=== PATIENT | female | born 1990 | race Caucasian/White ===

== ENCOUNTER → 2020-02-20 17:43 | Outpatient (CLI) | payer BC, SELFPAY | LOC: OBOUT 17:54 → UTC.OUT 18:56 | PROVIDERS: PCP Family Medicine; Visit Provider Physician Assistant | DX: Z02.4 Encounter for examination for driving license (principal) ==

== ENCOUNTER → 2020-04-14 06:46 | Outpatient (CLI) | payer BC, SELFPAY ==
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
== END ==
PROVIDERS: PCP Family Medicine; Visit Provider Nurse Practitioner
DX: R10.32 Left lower quadrant pain (principal)
CPT/HCPCS: 72192

== ENCOUNTER → 2020-11-04 15:36 | Outpatient (CLI) | payer BC, SELFPAY ==
[2020-11-04 16:23] LABS: Hemoglobin A1C 5.3 % (4.0-6.0)
[2020-11-04 17:12] LABS: Chloride 102 mmol/L (98-107)
[2020-11-04 17:13] LABS: Potassium 4.1 mmoL/L (3.5-5.1); Sodium 141 mmol/L (136-145)
[2020-11-04 17:15] LABS: Alanine Aminotransferase 21 U/L (12-78); Alkaline Phosphatase 65 U/L (38-126); Aspartate Amino Transferase 26 U/L (14-36); Bilirubin,Total 0.5 mg/dl (0.2-1.3); Blood Urea Nitrogen 16 mg/dl (7-17); Estimated Glomerular Filt Rate 100 ml/min (>60); GFR (African American) 121 ML/MIN (>60)
[2020-11-04 17:16] LABS: Anion Gap 13.1 mEq/L (5-15); Calcium 9.7 mg/dl (8.4-10.2); Carbon Dioxide 30 mmol/L (22.0-30.0); Globulin 2.5 g/dL (1.3-3.2); Glucose 79 mg/dl (74-100); Iron 77 ug/dL (37-170); Total Protein,Serum 7.5 g/dl (6.3-8.2)
[2020-11-04 17:25] LABS: Total Iron Binding Capacity 338 ug/dL (265-497)
[2020-11-04 17:34] LABS: Free Thyroxine Index 2.8 ug/dL (5.93-13.13); T4 (Thyroxine) 7.8 ug/dl (5.53-11.0); Triiodothryronine (T3) Uptake 36 % (23.5-40.5)
[2020-11-04 17:48] LABS: Thyroid Stimulating Hormone 0.68 uIU/mL (0.465-4.68)
[2020-11-04 18:05] LABS: Vitamin B12 379 pg/mL (239-931)
[2020-11-06 12:23] LABS: FSH 4.8 mIU/mL (.); Progesterone <0.1 ng/mL (.)
[2020-11-12 08:54] LABS: Testosterone, Total, LC/MS 39.8 ng/dL (10.0-55.0)
[2020-11-13 08:57] LABS: Estrogen 185 pg/mL (.)
[2020-11-16 04:21] LABS: 1,25 Dihydroxy Vitamin D 57 pg/mL (.); 1,25-Dihydroxy, Vitamin D-2 <10 pg/mL (.); 1,25-Dihydroxy, Vitamin D-3 57 pg/mL (.)
== END ==
PROVIDERS: Visit Provider Nurse Practitioner Psychiatric/Mental Health
DX: Z00.00 Encounter for general adult medical examination without abnormal findings (principal); R53.83 Other fatigue; Z79.899 Other long term (current) drug therapy; Z68.33 Body mass index [BMI] 33.0-33.9, adult
CPT/HCPCS: 36415; 80053; 82607; 82652; 82672; 83001; 83036; 83540; 83550; 84144; 84403; 84436; 84443; 84479

== ENCOUNTER → 2021-03-09 15:33 | Outpatient (CLI) | payer SELFPAY | PROVIDERS: PCP Family Medicine; Visit Provider Nurse Practitioner Family | DX: Z02.4 Encounter for examination for driving license (principal) ==

== ENCOUNTER → 2021-10-06 16:32 | Outpatient (CLI) | payer BC, SELFPAY ==
[2021-10-06 17:17] LABS: Basophils # 0.1 K/mm3 (0-0.2); Basophils % 0.8 % (0.1-2.0); Eosinophils # 0.2 K/mm3 (0.0-0.4); Eosinophils % 2.7 % (0.1-12.0); Hematocrit 41.9 % (37.0-47.0); Hemoglobin 13.6 g/dL (12.2-16.2); Lymphocytes # 1.5 K/mm3 (0.7-4.5); Lymphocytes % 21.3 % (10-50); Mean Corpuscular HGB Conc 32.5 g/dL (31.8-35.4); Mean Corpuscular Volume 95.2 fl (81-99); Mean Platelet Volume 8.4 fl (7.4-10.4); Monocytes # 0.5 K/mm3 (0.1-1.0); Monocytes % 6.6 % (1.7-9.3); Neutrophils # 4.7 K/mm3 (1.8-7.8); Neutrophils % 68.5 % (37.0-80.0); Platelet Count 205 K/mm3 (142-424); Red Cell Distribution Width 12.7 % (11.5-17.5); White Blood Count 6.9 K/mm3 (4.8-10.8)
== END ==
PROVIDERS: PCP Physician Assistant; Visit Provider Physician Assistant
DX: J06.9 Acute upper respiratory infection, unspecified (principal)
CPT/HCPCS: 36415; 85025

== ENCOUNTER → 2022-12-21 13:46 | Outpatient (CLI) | payer OTHER, SELFPAY ==
[2022-12-21 14:38] LABS: Basophils % 0.7 % (0.1-2.0); Eosinophils # 0.2 K/mm3 (0.0-0.4); Hematocrit 44.3 % (37.0-47.0); Hemoglobin 14.1 g/dL (12.2-16.2); Lymphocytes # 1.5 K/mm3 (0.7-4.5); Lymphocytes % 37.8 % (10-50); Mean Corpuscular HGB Conc 31.7 g/dL (31.8-35.4); Mean Corpuscular Hemoglobin 29.6 pg (27.0-31.2); Mean Corpuscular Volume 93.4 fl (81-99); Mean Platelet Volume 8.4 fl (7.4-10.4); Monocytes # 0.4 K/mm3 (0.1-1.0); Monocytes % 9.1 % (1.7-9.3); Neutrophils # 1.9 K/mm3 (1.8-7.8); Neutrophils % 48.5 % (37.0-80.0); Platelet Count 199 K/mm3 (142-424); Red Blood Count 4.75 M/mm3 (4.20-5.40); Red Cell Distribution Width 12.7 % (11.5-17.5); White Blood Count 3.9 K/mm3 (4.8-10.8)
[2022-12-21 14:51] LABS: Alanine Aminotransferase 52 U/L (12-78); Albumin Level 4.5 g/dl (3.5-5.0); Albumin/Globulin Ratio 1.7 (1.1-1.8); Alkaline Phosphatase 58 U/L (38-126); Anion Gap 15.2 mEq/L (5-15); Aspartate Amino Transferase 45 U/L (14-36); Bilirubin,Total 0.6 mg/dl (0.2-1.3); Blood Urea Nitrogen 14 mg/dl (7-17); Calcium 9.1 mg/dl (8.4-10.2); Carbon Dioxide 29 mmol/L (22.0-30.0); Chloride 100 mmol/L (98-107); Estimated Glomerular Filt Rate 98 ml/min (>60); GFR (African American) 119 ML/MIN (>60); Globulin 2.6 g/dL (1.3-3.2); Glucose 89 mg/dl (74-100); Potassium 4.2 mmoL/L (3.5-5.1); Sodium 140 mmol/L (136-145); Total Protein,Serum 7.1 g/dl (6.3-8.2)
[2022-12-21 15:08] LABS: Triiodothryronine (T3) Uptake 34 % (23.5-40.5)
[2022-12-21 15:42] LABS: Vitamin B12 438 pg/mL (239-931)
[2022-12-21 16:01] LABS: Hemoglobin A1C 5.1 % (4.0-6.0)
[2022-12-21 16:02] LABS: Iron 138 ug/dL (37-170)
[2022-12-21 16:12] LABS: Total Iron Binding Capacity 316 ug/dL (265-497)
[2022-12-21 16:20] LABS: Free Thyroxine Index 2.7 ug/dL (5.93-13.13)
[2022-12-30 20:09] LABS: 1,25 Dihydroxy Vitamin D 46 pg/mL (.); 1,25-Dihydroxy, Vitamin D-2 <10 pg/mL (.); 1,25-Dihydroxy, Vitamin D-3 41 pg/mL (.)
== END ==
PROVIDERS: PCP Family Medicine; Visit Provider Nurse Practitioner Psychiatric/Mental Health
DX: Z00.00 Encounter for general adult medical examination without abnormal findings (principal); Z79.899 Other long term (current) drug therapy; R53.83 Other fatigue
CPT/HCPCS: 36415; 80053; 82607; 82652; 83036; 83540; 83550; 84436; 84443; 84479; 85025

== ENCOUNTER 2023-09-25 07:35 | Emergency (ER) | payer OTHER, SELFPAY ==
[2023-09-25] VITALS (8 sets, daily range): BP systolic 103–143; BP diastolic 53–89; PULSE 65–94; RESP 18; TEMP 36.6–36.7; O2SAT 97–100; BMI 28.7
[2023-09-25 08:01] LABS: Microscopic, Urine URINE MICROSCOPIC (MICROSCOPIC)
--- NOTE | 2023-09-25 08:01 | PC.NURSE ---
Dr. murry at [facility] for pt eval
[2023-09-25] MEDS: ONDANSETRON 4MG/2ML VIAL 4 MG IV (08:02)
[2023-09-25] MEDS: LACTATED RINGERS 1000ML 1,000 ML 999 ML IV (08:03)
[2023-09-25] MEDS: KETOROLAC 30MG/ML VIAL 30 MG IV (08:03)
[2023-09-25 08:05] LABS: Appearance,Urine CLEAR (Clear); Bilirubin,Urine Negative (Negative); Blood, Urine Negative (Negative); Color,Urine YELLOW (Yellow); Glucose,Urine (UA) Negative (Negative); Ketones,Urine Negative (Negative); Leukocyte Esterase,Urine Negative (Negative); Nitrate,Urine Negative (Negative); Protein,Urine Negative (Negative); Specific Gravity, Urine 1.025 (1.005-1.030); Urobilinogen,Urine 0.2 EU/dl (0.2)
[2023-09-25 08:05] LABS: Basophils % 0.8 % (0.1-2.0); Eosinophils # 0.2 K/mm3 (0.0-0.4); Eosinophils % 2.9 % (0.1-12.0); Hematocrit 44.4 % (37.0-47.0); Hemoglobin 14.4 g/dL (12.2-16.2); Lymphocytes # 1.5 K/mm3 (0.7-4.5); Lymphocytes % 26.6 % (10-50); Mean Corpuscular HGB Conc 32.5 g/dL (31.8-35.4); Mean Corpuscular Hemoglobin 30.8 pg (27.0-31.2); Mean Corpuscular Volume 94.8 fl (81-99); Mean Platelet Volume 8.8 fl (7.4-10.4); Monocytes # 0.6 K/mm3 (0.1-1.0); Neutrophils # 3.3 K/mm3 (1.8-7.8); Neutrophils % 59.8 % (37.0-80.0); Platelet Count 179 K/mm3 (142-424); Red Blood Count 4.68 M/mm3 (4.20-5.40); Red Cell Distribution Width 12.9 % (11.5-17.5); White Blood Count 5.6 K/mm3 (4.8-10.8)
--- NOTE | 2023-09-25 08:08 | CT_ITS ---
FINAL REPORT CLINICAL HISTORY: Lower abd pain COMPARISON: None FINDINGS: CT OF THE ABDOMEN AND PELVIS WITH CONTRAST Axial CT images of the abdomen and pelvis were obtained after the administration of IV contrast. Coronal and sagittal reformatted images were also obtained and reviewed. This study was performed with techniques to keep radiation doses as low as reasonably achievable (ALARA). Individualized dose reduction techniques using automated exposure control or adjustment of mA and/or kV according to the patient's size were employed. Abdomen: The lung bases are clear. The heart is normal in size. The liver has an unremarkable appearance, without evidence of mass or biliary ductal dilatation. There is mild nonspecific gallbladder wall thickening. The spleen is unremarkable. No adrenal mass is present. The pancreas has an unremarkable appearance. The kidneys are normal, without evidence of mass or hydronephrosis. The aorta is normal in caliber. There is no free fluid or adenopathy. No mass or abnormal fluid collection is seen. Pelvis: The appendix is normal in appearance. The urinary bladder is unremarkable. There is a right ovarian corpus luteum cyst, with a small amount of pelvic free fluid which may be physiologic or reactive. There is no evidence of mass or adenopathy. There is no evidence of bowel obstruction. IMPRESSION: Right ovarian corpus luteum cyst, with a small amount of free fluid, physiologic or reactive. Mild nonspecific gallbladder wall thickening. Reviewed, Interpreted and Dictated by Hussain Lopez III, MD Transcribed by Rebecca Staples Authenticated and [facility]
[2023-09-25 08:15] LABS: Urine Pregnancy, HCG Qual. Negative (Negative)
[2023-09-25 08:22] LABS: Alanine Aminotransferase 25 U/L (12-78); Albumin Level 4.5 g/dl (3.5-5.0); Albumin/Globulin Ratio 1.6 (1.1-1.8); Alkaline Phosphatase 57 U/L (38-126); Anion Gap 8.2 mEq/L (5-15); Aspartate Amino Transferase 28 U/L (14-36); Bilirubin,Total 0.4 mg/dl (0.2-1.3); Blood Urea Nitrogen 14 mg/dl (7-17); Calcium 9.4 mg/dl (8.4-10.2); Carbon Dioxide 29 mmol/L (22.0-30.0); Chloride 107 mmol/L (98-107); Creatinine Clearance Estimated 135 mL/min (50-200); Estimated Glomerular Filt Rate 98 ml/min (>60); GFR (African American) 118 ML/MIN (>60); Globulin 2.8 g/dL (1.3-3.2); Glucose 78 mg/dl (74-100); Potassium 4.2 mmoL/L (3.5-5.1); Sodium 140 mmol/L (136-145); Total Protein,Serum 7.3 g/dl (6.3-8.2)
[2023-09-25 08:37] LABS: Lipase 224 U/L (23-300)
--- NOTE | 2023-09-25 08:37 | ED_ITS ---
Discharge Plan Disposition Patient Disposition: Home, Self-Care Condition: Good Prescriptions Prescriptions: No Action dextroamphetamine-amphetamine [Adderall XR] 30 mg capsule,extended release 24h r 30 mg PO DAILY Qty: 30 0RF Referrals Follow up/Referrals: Dionne Sandoval DO [Staff Physician] - See instructions (MAKE AN APPOINTMENT FOR OB FOLLOW-UP) Twyla Hensley MD [Primary Care Provider] - See instructions Activity Restrictions/Add. Instructions Additional Instructions/Restrictions: You have been evaluated in the ED for your complaints. You may follow-up with your PCP in the next 3 to 5 days. Please return to ED for any new or worsening symptoms. Please follow-up with [employer] SALES REPRESENTATIVE as discussed. Clinical Impressions Clinical Impression: Bilateral lower abdominal pain, Ruptured ovarian cyst Stand Alone Forms Stand Alone Forms: Work/School Release Discharge ED Provider: Porfirio Guerra Adult HPI General Chief complaint: PAIN Stated complaint: abd pain, rt side pain, lower back pain Time Seen by Provider: 09/25/23 07:57 Mode of Arrival: Wheelchair Source of Information: Patient Limitations: No Limitations Description of Symptoms (Recalled from ER Triage Doc. by RN): Patient states after having sex this morning she feels that she may have a kidney stone that has moved. Complaint of right sided lower back pain that started this morning. History of Present Illness HPI narrative: 33-year-old female with past medical history significant for ADHD, PRATIBHA, nephrolithiasis, , tubal ligation, presents today for evaluation concerning lower abdominal pain characterized as a cramping sensation onset this morning after having sexual intercourse with her . States that she got up and went to the restroom and noted that her cramping was intense. She denies having any fevers, chills, chest pain, shortness of breath, dysuria, hematuria or discharge. She does note right lower back pain that is nonradiating. No further complaints at this time. Related Data Previous Rx's Medication Instructions Recorded dextroamphetamine-amphetamine ER 30 mg PO DAILY #30 caps 08/21/23 30 mg 24hr capsule,extend release (Adderall XR) Allergies Allergy/AdvReac Type Severity Reaction Status Date / Time No Known Allergies Allergy Verified 10/20/22 09:11 [facility] Disclaimer: The information contained in this section may have been updated after the patient was seen, as this information can be updated by other users. 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 ROS Obtained: Yes All systems reviewed & no additional complaints except as documented Physical Exam General General appearance: alert and in no apparent distress Head Head exam: atraumatic and normocephalic Eye Eye exam: Present normal appearance, PERRL and EOMI ENT ENT exam: Present normal oropharynx and mucous membranes moist Neck Neck exam: Present full ROM; Absent meningismus Respiratory Respiratory exam: Absent respiratory distress, wheezes, stridor or accessory muscle use Cardiovascular Cardiovascular exam: Present normal rhythm Abdominal Exam Abdominal exam: Present soft and tenderness; Absent distention, guarding, rebou nd or rigidity Abdominal tenderness: Present RLQ, LLQ and suprapubic Neurological Exam Neurological exam: Present alert, oriented X3 and CN II-XII intact; Absent motor sensory deficit Psychiatric Psychiatric exam: Present normal affect and normal mood Skin Skin exam: Present warm and dry Medical Decision Making Medical Records Medical records reviewed: Yes I reviewed the patient's medical records. Devyn Inquiry Pt receiving controlled substance: No Devyn was queried for this patient: No Vital Signs: 09/25/23 07:36 09/25/23 08:00 09/25/23 08:30 Temperature 97.9 F Temperature Source Oral Pulse Rate 83 65 Pulse Rate [Radial] 94 H Respiratory Rate 18 Blood Pressure 124/87 117/72 Blood Pressure [Right Arm] 143/89 H Blood Pressure Mean 91 Blood Pressure Mean [Right Arm] 107 Blood Pressure Source [Right Arm] Automatic Cuff Blood Pressure Position [Right Arm] Sitting 02 Sat by Pulse Oximetry 100 98 97 Oxygen Delivery Method Room Air Room Air 09/25/23 09:30 09/25/23 10:01 09/25/23 10:31 Temperature Temperature Source Pulse Rate 76 73 66 Pulse Rate [Radial] Respiratory Rate Blood Pressure 113/69 109/70 L 114/77 Blood Pressure [Right Arm] Blood Pressure Mean Blood Pressure Mean [Right Arm] Blood Pressure Source [Right Arm] Blood Pressure Position [Right Arm] 02 Sat by Pulse Oximetry 99 100 100 Oxygen Delivery Method Room Air Room Air Room Air 09/25/23 11:31 Temperature Temperature Source Pulse Rate 76 Pulse Rate [Radial] Respiratory Rate Blood Pressure 123/75 Blood Pressure [Right Arm] Blood Pressure Mean Blood Pressure Mean [Right Arm] Blood Pressure Source [Right Arm] Blood Pressure Position [Right Arm] 02 Sat by Pulse Oximetry 99 Oxygen Delivery Method Room Air Lab Data Lab Results 09/25/23 07:40: Urine Color Yellow, Urine Appearance Clear, Urine pH 7.0, Ur Specific Hopkins 1.025, Urine Protein Negative, Urine Glucose (UA) Negative, Urine Ketones Negative, Urine Blood Negative, Urine Nitrate Negative, Urine Bilirubin Negative, Urine Urobilinogen 0.2, Ur Leukocyte Esterase Negative, Urine RBC Occasional, Urine WBC Occasional, Ur Squamous Epith Cells 3-5, Urine Bacteria Trace, Urine HCG, Qual Negative 09/25/23 07:45: WBC 5.6, RBC 4.68, Hgb 14.4, Hct 44.4, MCV 94.8, MCH 30.8, MCHC 32.5, RDW 12.9, Plt Count 179, MPV 8.8, Neut % (Auto) 59.8, Lymph % (Auto) 26.6, [place] % (Auto) 10.0 H, Eos % (Auto) 2.9, Baso % (Auto) 0.8, Neut # (Auto) 3.3, Lymph # (Auto) 1.5, [place] # (Auto) 0.6, Eos # (Auto) 0.2, Baso # (Auto) 0.0, Sodium 140, Potassium 4.2, Chloride 107, Carbon Dioxide 29, Anion Gap 8.2, BUN 14, Creatinine 0.70, Estimated Creat Clear 135, Estimated GFR 98, Est GFR ( Amer) 118, Glucose 78, Calcium 9.4, Total Bilirubin 0.4, AST 28, ALT 25, Alkaline Phosphatase 57, Total Protein 7.3, Albumin 4.5, Globulin 2.8, Albumin/Globulin Ratio 1.6, Lipase 224, Serum HCG, Qual Negative 09/25/23 : Lactate 1.2 09/25/23 07:45 09/25/23 07:45 Orders (Tests/Meds): ED MEDICATIONS Generic Name Dose Route Start Last Admin Trade Name Freq PRN Reason Stop Dose Admin Sodium Chloride 10 ml 09/25/23 07:56 Sodium Chloride 0.9% 10ml Flush Syringe IV 10/25/23 07:55 NEEDED PRN Maintain IV Site Discontinued Medications Generic Name Dose Route Start Last Admin Trade Name Freq PRN Reason Stop Dose Admin Lactated Ringer's 1,000 mls @ 999 mls/hr 09/25/23 07:58 09/25/23 08:03 Lactated Ringer's 1000 Ml Bag IV 09/25/23 08:58 999 mls/hr .Q1H1M ONE Administration Iopamidol 75 ml 09/25/23 08:47 09/25/23 08:48 Iopamidol-370 (76%);100ml Bottle IV 09/25/23 08:48 75 ml ONCE ONE Administration Ketorolac Tromethamine 30 mg 09/25/23 07:58 09/25/23 08:03 Ketorolac 30mg/Ml Vial IV 09/25/23 07:59 30 mg ONCE ONE Administration Ondansetron HCl 4 mg 09/25/23 07:58 09/25/23 08:02 Ondansetron 4mg/2ml Vial IV 09/25/23 07:59 4 mg ONCE ONE Administration Sodium Chloride 10 ml 09/25/23 08:47 09/25/23 08:48 Sodium Chloride 0.9% 10ml Syr (Rad Only) IV 09/25/23 08:48 10 ml ONCE ONE Administration ORDERS Category Date Time Status CT abdomen pelvis w con Stat Cat Scan 09/25/23 08:08 Taken US transvaginal Stat Exams 09/25/23 10:30 Completed Complete Blood Count Auto Diff Stat Lab 09/25/23 07:45 Completed Comprehensive Metabolic Panel Stat Lab 09/25/23 07:45 Completed HCG Qualitative, Serum Stat Lab 09/25/23 07:45 Completed Lactic Acid Stat Lab 09/25/23 Completed Lipase Stat Lab 09/25/23 07:45 Completed Urinalysis and Microscopic Stat Lab 09/25/23 07:40 Completed Urine , HCG Qual. Stat Lab 09/25/23 07:40 Completed Medical Decision Narrative: 33-year-old female with past medical history significant for ADHD, PRATIBHA, nephrolithiasis, , tubal ligation, presents today for evaluation concerning lower abdominal pain characterized as a cramping sensation onset this morning after having sexual intercourse with her . States that she got up and went to the restroom and noted that her cramping was intense. On assessment, the patient was hemodynamically stable and in no acute distress. Afebrile. Physical exam was remarkable for tenderness to palpation in the left lower quadrant, right lower quadrant and suprapubic region. She did not have any CVA tenderness bilaterally. She did have right lower lumbar tenderness along the paraspinal musculature. Other physical exam findings unremarkable. Differential diagnoses include not limited to ruptured ovarian cyst, , other intra-abdominal pathology, among others. CBC was nonactionable. CMP nonactionable. Lactate 1.2, within range. No transaminitis. Negative screen. No signs of UTI on urinalysis. CT of the abdomen and pelvis was also ordered And preliminary read noted a right ovarian corpus luteum cyst with small amount of free fluid that could be physiologic or reactive. There is also mild nonspecific gallbladder wall thickening. I did order for a formal transvaginal ultrasound and it was noted that both the left and right ovaries appeared polycystic. Recent corpus luteum on the right ovary. Small amount of free fluid around the right ovary and superior to the uterus. Moderate fluid in the cul-de-sac, likely ruptured ovarian cyst. On reassessment, the patient remains medically stable and in no acute distress. I discussed her ED workup and results and current plan to discharge with follow-up with [employer] SALES REPRESENTATIVE. She was agreeable to plan. Provided with return ED precautions. Subsequent discharged home in medically stable and in no acute distress. Critical Care Critical Care Time Critical Care Time: No
[2023-09-25] MEDS: IOPAMIDOL-370 (76%);100ML BOTTLE 75 ML IV (08:48)
[2023-09-25] MEDS: SODIUM CHLORIDE 0.9% 10ML SYR (RAD ONLY) 10 ML IV (08:48)
[2023-09-25 08:49] LABS: RBC,Urine Occasional #/hpf (0-3); WBC,Urine Occasional #/hpf (0-3)
[2023-09-25 08:50] LABS: Bacteria,Urine Trace /lpf
--- NOTE | 2023-09-25 09:12 | PC.NURSE ---
Rounded on pt to see if they had any needs. Pt requested a blamket. Rtrieved a blanket and tthere were no other needs at this time
[2023-09-25 09:39] LABS: Lactic Acid 1.2 mmol/L (0.7-2.1)
--- NOTE | 2023-09-25 09:55 | PC.NURSE ---
ROUNDED ON PT, NO NEEDS AT THIS TIME. CALL LIGHT WITHIN REACH. FAMILY AT BEDSIDE. UPDATED ON POC
--- NOTE | 2023-09-25 10:15 | PC.NURSE ---
SPOKE WITH RADIOLOGY, REQUESTED UPDATE ON CT READ
--- NOTE | 2023-09-25 10:30 | US_ITS ---
PROCEDURE: US TRANSVAGINAL CLINICAL INDICATION: RLQ pain COMPARISON: CT CT ABDOMEN PELVIS W CON from 09/25/2023 FINDINGS: Transvaginal sonographic images of the pelvis were obtained. UTERUS: 9.4cm x 5.2cmx 5.0 cm anteverted with a combined endometrial thickness of 6.7mm. A scar is noted. There is a small amount of fluid anterior to the uterus. LEFT OVARY: [id number] with a volume of 6.9ml. There are several small follicles. Appears polycystic. RIGHT OVARY: 5cmx 3cm Within the right ovary is a corpus luteum measuring 1.5 cm x 1.2 cm x 0.8 cm in size. There are several small follicles throughout the right ovary. There is free fluid adjacent to the right ovary. Both ovaries are seen and appear normal. Doppler flow to both ovaries are seen. There is moderate fluid in the cul-de-sac. IMPRESSION: 1. Anteverted, bulky uterus. The endometrium is thin at 6.7 mm. 2. Both left and right ovaries appear polycystic. 3. There appears to be a recent corpus luteum on the right ovary. 4. There is a small amount of free fluid around the right ovary and superior to the uterus. 5. There is moderate fluid in the cul-de-sac. 6. Likely recently ruptured ovarian cyst. Dictated by: Chinmay Pittman MD 09/25/2023 11:45 Chinmay Pittman MD in [place] 09/25/2023 11:45
[2023-09-25 10:33] LABS: HCG Qualitative, Serum Negative (Negative)
--- NOTE | 2023-09-25 11:02 | PC.NURSE ---
Rounded on pt to see if they had any needs. Pt was gone to radiology . would check on them as soon as they come back
== END 2023-09-25 12:17 | disposition home or self-care (01) ==
PROVIDERS: Emergency Provider Emergency Medicine; PCP Family Medicine
DX: R10.30 Lower abdominal pain, unspecified (principal); N83.291 Other ovarian cyst, right side; M54.59 Other low back pain; F17.210 Nicotine dependence, cigarettes, uncomplicated
CPT/HCPCS: 74177; 76830; 80053; 81001; 81025; 83605; 83690; 84703; 85025; 96361; 96374; 96375; 99285; J2405; Q9967

== ENCOUNTER 2024-10-03 20:18 | Outpatient (CLI) | payer OTHER, SELFPAY ==
[2024-10-03 21:59] LABS: Thyroid Stimulating Hormone 0.84 uIU/mL (0.465-4.68)
[2024-10-05 09:14] LABS: FSH 7.3 mIU/mL (.); LH 42.5 mIU/mL (.); Progesterone 1.2 ng/mL (.)
[2024-10-07 15:18] LABS: Estrogen 322 pg/mL (.)
[2024-10-14 09:31] LABS: Testosterone, Total, LC/MS 56 ng/dL (.)
== END 2024-10-03 23:59 | disposition home or self-care (01) ==
LOC: LAB 20:20
PROVIDERS: PCP Family Medicine; Visit Provider Obstetrics & Gynecology
DX: R53.83 Other fatigue (principal); R68.82 Decreased libido
CPT/HCPCS: 36415; 82672; 83001; 83002; 84144; 84146; 84403; 84443

== ENCOUNTER 2024-12-31 08:15 | Outpatient (CLI) | payer OTHER, SELFPAY ==
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
--- OUTSIDE RECORDS SUMMARY | 2024-12-31 08:22 | XMS_ITS | Data Portability ---
Author Organization [facility] JARED Silverio [facility] Address [address] [place] [address] Care Team Providers Care Engineering Lecturer Name Role Phone NEHAL COOK Referring Provider Assessment No assessment recorded. Plan of Treatment Reminders Order Date Submit Date Provider Last Modified By Organization Details Last Modified Time Details Appointments None recorded. Lab dhea-sulfat e, serum 2020 021 [facility], [address] [place] [address], [id number], 13:06:52 testosteron e, free + total, serum [address] [facility], [address] [place] [address], [id number], 13:07:19 cortisol, serum or plasma 2020 021 [email or web address] [facility], [address] [place] [address], [id number], 13:08:39 prolactin, serum [address] [facility], [address] [place] [address], [id number], 13:09:33 glycohemogl obin, total, blood [address] [facility], [address] [place] [address], [id number], 13:07:46 BMP, serum or plasma [address], [address] [place] [address], [id number], 13:08:57 C-peptide, serum [address], [address] [place] [address], [id number], 13:09:14 T4, free, serum [address], [address] [place] [address], [id number], 13:06:06 TSH, serum or plasma [address], [address] [place] [address], [id number], 13:08:07 T3, free, serum or plasma [address], [address] [place] [address], [id number], 13:06:26 thyroid peroxidase (tpo) Ab, serum [address], [address] [place] [address], [id number], 13:08:22 Referral None recorded. Procedures None recorded. Surgeries None recorded. Imaging None recorded. Medication Orders None recorded. Patient TargetsNo targets recorded. Patient Instructions Encounter Date Encounter Id Patient Instructions Last Modified By Organization Details Last Modified Time 02/25/2021 [id number] polycystic ovary syndrome: care instructions Not available 02/25/2021 14:22:07 I would like to thank Dr. Cook for the opportunity to participate in the care of this patient. Not available 02/25/2021 15:06:48 Reason for Referral None Reported. Procedures Surgical History Date Name Laterality Status Provider Name and Address Organization Details Recorded Time open reduction of fracture of fibula completed Valeri [facility] 02/25/2021 13:41:35 Dilation and curettage completed [facility] 02/25/2021 13:42:02 classical section completed [facility] 02/25/2021 13:42:11 laparoscopy completed [facility] 02/25/2021 13:42:57 Imaging Results None recorded. Procedure Notes None recorded. Medical Equipment None Reported. Allergies No known drug allergies Medications Name Sig Start Date Stop Date Status Note LastModified by Organization Details LastModified Time citalopram 10 mg tablet TAKE ONE TABLET BY MOUTH EVERY DAY PRN active Not Available Not Available No t Available clonazepam 0.5 mg tablet TAKE ONE TABLET BY MOUTH THREE TIMES DAILY NEEDED MAY CAUSE DROWSINES S 02/25 completed Not Available Not Available Not Available diclofenac sodium 75 mg tablet,audrey yed release TAKE ONE TABLET BY MOUTH TWICE DAILY --TAKE WITH FOOD-- 02/25 completed Not Available Not Available Not Available methylpredn isolone 4 mg tablets in a dose pack TAKE ACCORDING TO PACKAGE INSTRUCTI ONS 02/25 completed Not Available Not Available Not Available diazepam 5 mg tablet TAKE ONE TABLET BY MOUTH THREE TIMES DAILY NEEDED MAY CAUSE DROWSINES S 02/25 completed Not Available Not Available Not Available atomoxetine 40 mg capsule TAKE ONE CAPSULE BY MOUTH EVERY DAY IN THE MORNING 02/25 completed Not Available Not Available Not Available atomoxetine 60 mg capsule TAKE ONE CAPSULE BY MOUTH EVERY DAY 02/25 completed Not Available Not Available Not Available Vitals Date Recorded Body weight Body mass index (BMI) Body height Heart rate Systolic blood pressure Diastolic blood pressure Provider Name and Address Organization Details Last Updated DateTime 1 58689.1 g 34.7 kg/m2 160.02 cm 92 /min 118 mm[Hg] 68 mm[Hg] [facility] 13:35:59 Social History Question Answer Notes LastModified by Organizat ion Details LastModified Time Tobacco Smoking Status Never Smoker [facility] 02/25/2021 13:41:12 What Is Your Level Of Caffeine Consumption? Moderate Information not available 02/25/2021 Have You Recently Traveled Abroad? No Information not available 02/25/2021 Sex: Unknown Functional Status Question Answer Note LastModified by Organizat ion Details LastModified Time Do you or have you ever used any other forms of tobacco or nicotine? Yes Information not available 02/25/2021 What is your level of alcohol consumption? None Information not available 02/25/2021 Do you or have you ever used smokeless tobacco? Never used smokeless tobacco Information not available 02/25/2021 Do you or have you ever used e-cigarettes or vape? Current user of electronic cigarettes Information not available 02/25/2021 Mental Status None recorded. Family History Relationship Description Onset Age of this Age Resolved Age Notes LastModified by Organization Details LastModified Time Mother Disorder of thyroid gland Not available 2020 13:37:34 Mother Hypertensive disorder Not available 2020 13:38:49 Maternal Grandmother Family history of malignant neoplasm skin,b reast Not available 02/25/2021 13:38:23 Father Heart disease Not available 2020 13:38:40 Father Hypercholest erolemia Not available 2020 13:38:58 Paternal Grandfather Heart disease Not available 2020 13:39:10 Paternal Grandfather Diabetes mellitus Not available 2020 13:39:29 Paternal Grandfather Hypertensive disorder Not available 2020 13:39:53 Paternal Grandmother Heart disease Not available 2020 13:39:14 Paternal Grandmother Diabetes mellitus Not available 2020 13:39:29 Maternal Grandfather Cerebrovascu lar accident Not available 12/2020 13:39:43 Medical History No medical history recorded. Gynecological HistoryNo gynecological history recorded. Obstetrics History GPAL:G 1 P 0 0 3 0 Type Value Spontaneous 3 Total 1 Past Encounters Encounter ID Performer Location Encounter Start Date Encounter Closed Date Diagnosis/Indication Diagnosis SNOMED-CT Code Diagnosis ICD10 Code Diagnosis Note [id number] BLU MANJARREZ APRN ENDOCRINO [address] [address] [place] [address] 02/25/2021 13:29:43 02/28/2021 11:14:48 Thyroid function tests abnormal 585461337 R94.6 Normal TSH and total T4 with low free thyroxine index per lab 11/04/2020 - TSH 0.68 (normal 0.465-4.60 ), TT4=7.8 (normal 5.53 - 11.0), and Free thyroxine index 2.8 (5.93-13.1 3). Will repeat labs to check Free T4 and Free T3, along with thyroid peroxidase antibodies to evaluate for Quinn' s thyroiditi s. She is going on vacation next week and will not be able to do the labs until the following week. Recommenda tions and follow up, if indicated, will be determined after review of labs results. Irregular periods 959554 07 N92.6 Symptoms appear consistent with PCOS.Will check prolactin along with other labs as noted below. Female hirsutism 1908590 9 L68.0 Labs as noted below. Abnormal weight gain 161 815849 R63.5 Labs as noted below. Health Concerns Section Related Observation LastModified by Organization Detai ls LastModified Time None Recorded Concern Status LastModified by Organization Details LastModified Time None Recorded Advance Directives Directive None Recorded Payers Insurance Date Sequence Insurance Name Policy Number Policy Morris Covered Member ID Morris Member ID Guarantor Name 04/11/2021 1 [place] [id number] Shanda Solares [id number] Shanda Solares 04/11/2021 1 [place] [id number] Tip Solares [id number] Shanda Solares Notes Date Note Type Note Provider Name and Address Organization Details Recorded Time 02/25/2021 text/html Ms. Solares is a 31 year old female with a past medication history significant for ADHD. She is being seen today at the request of Tiff Cook MD for abnormal thyroid function tests. Ms. Solares reports that she has been seeing Dr. Cook every 6 months for the past couple of years and has had her thyroid checked because she c/o fatigue and weight gain. All of her tests have been normal. She has ADD/ADHD and sees a Psychologist (Holly Zabala). She ordered labs that checked other labs including BMP, FSH, progesterone and more thyroid tests which she was told were abnormal.Labs received show a normal TSH and FT4 with low free thyroxine index. 11/04/2020 - TSH 0.68 (normal 0.465-4.60), FT4=7.8 (normal 5.53 - 11.0), and Free thyroxine index 2.8 (5.93-13.13).She c/o weight gain and mentions that in the past two years, she has gained 40 lb. She did not follow a particular diet but did not eat junk food and seldom drank sodas. She drank about 2 Evelin-8s per week. She feels excessively tired all the time. She drinks coffee in the morning for the caffeine and it helps but by the afternoon, she feels drained. 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 She has intermittent hot flashes about 1-2 x a month and then sometimes has cold intolerance. She denies diarrhea, heat or cold intolerance.Her menses are irregular, usually every 2 months. She had a laparoscopy in 2012 and they flushed her tubes. She got with twins and had a miscarriage at 9 weeks. About a month or 2 later, she started trying to get again and had difficulty getting and was started on Clomid that did not help. She then took Femara and got the 2nd month she took the medication but had a miscarriage at 26 weeks. 3 months later, she got without taking fertility medication and carried her son to 38 weeks and delivered him by . He was very healthy. She was borderline gestational diabetes and had to check her BG every day but did not require any medication.Her psychologist told her that her symptoms sounded like she was going into early menopause. She had not seen her strapping machine tender for over a year. She has had a tubal so she does not take BCP. She also mentions hair on her chin and mentions horrible acne. Personal history of hypothyroidism or hyperthyroidism: no Thyroid medication: no Thyroid ultrasound: no Results: na Thyroid scan: no Results: na History of exposure to radioactive iodine, head or neck radiation, or nuclear radiation prior to diagnosis: no Personal history of thyroid cancer: no Family history of thyroid disease.: mother has hypothyroidism Family history of thyroid cancer: no BLU MANJARREZ, AUDIT ASSOCIATE [address] [place], [address], [facility] 02/25/2021 16:32:09 OBGyn Episode No OBEpisode recorded.
--- OUTSIDE RECORDS SUMMARY | 2024-12-31 08:22 | XMS_ITS | Clinical Summary ---
Author Organization Healthcare Address [address] [place] [address] Care Team Providers Care Kit Assembler Name Role Phone Pcp, No Primary Care Provider Unavailabl e Allergies No known active allergies Medications amphetamine-dex troamphetamine XR (Adderall XR) 25 MG 24 hr capsule Take 25 mg by mouth 1 (one) time each day. 2 Active diazePAM (Valium) 5 MG tablet 9 Active cyclobenzaprine (Flexeril) 5 MG tablet TAKE ONE TABLET BY MOUTH THREE TIMES DAILY NEEDED MAY CAUSE DROWSINESS 2 Active norgestimate-et hinyl estradiol (Sprintec 28) 0.25-35 MG-MCG tablet Take 1 tablet by mouth 1 (one) time each day. 28 tablet 3 2 Active Immunizations Immunization Administration Dates Next Due Tdap 11/20/2016 Family History Medical History Relation Name Comments Hyperlipidemia Father Stroke Maternal Grandfather Breast cancer Maternal Grandmother Conversions - Other Maternal Grandmother Skin cancer of nose Hypertension Mother Diabetes Paternal Grandmother bypass surgery Sister Relation Name Status Comments Father Maternal Grandfather Maternal Grandmother Mother Paternal Grandmother Sister Social History Tobacco Use Types Packs/Day Years Used Date Smoking Tobacco: Former Smokeless Tobacco: Never Tobacco Cessation:Counseling Given: Not Answered Alcohol Use Standard Drinks/Week Comments Yes 0 (1 standard drink = 0.6 oz pure alcohol) Alcoholic Drinks/day: Occasional alcohol use Comments No Sex and Gender Information Value Date Recorded Sex Assigned at Not on file Legal Sex Female 6:53 PM EDT Gender Identity Not on file Sexual Orientation Not on file Last Filed Vital Signs Vital Sign Reading Time Taken Comments Blood Pressure 127/87 05/15/2022 1:58 PM EDT Pulse 84 05/17/2020 11:06 AM EDT Temperature 36.4 C (97.5 F) 05/17/2020 11:06 AM EDT Respiratory Rate - - Oxygen Saturation - - Inhaled Oxygen Concentration - - Weight 69.4 kg (153 lb) 05/15/2022 1:58 PM EDT Height 160 cm (5' 3 ) 05/15/2022 1:58 PM EDT Body Mass Index 27.1 05/15/2022 1:58 PM EDT Plan of Treatment Health Maintenance Due Date Last Done Comments [facility]-Depression Screening 1990 [facility]-Hepatitis C Screening 1990 [facility]-/Child/Adol SDOH Screenings 1990 [facility]-Varicella Vaccines (1 of 2 - 13+ 2-dose series) 02/06/2005 HPV Vaccines (1 - 3-dose series) 02/06/2007 [facility]- SDOH Screenings 02/06/2010 [facility]-Adult SDOH Screenings 02/06/2010 [facility]-Hepatitis B Vaccines (1 of 3 - 19+ 3-dose series) 02/06/2011 [facility]-Pap Smear 07/10/2019 07/10/2016 [facility]-Cervical Cancer Screening 02/06/2022 [facility]-HPV/Cotest 02/06/2022 07/10/2016 AKI-ODDKR-21 Vaccine ( - 2023- season) 2024 [facility]-Influenza Vaccine (Seaso n Ended) 2025 04/03/2022 [facility]-DTaP,Tdap,and Td Vaccine s (3 - Td or Tdap) 03/30/2032 03/30/2022, 11/20/2016 [facility]-Zoster Vaccines (1 of 2) 02/06/2042 [facility]-HIV Screening Completed 06/26/2016 [facility]-Obesity Intervention Completed 05/15/2022 [facility]-HIB Vaccines Aged Out No longer e ligible based on patient's age to complete this topic [facility]-Hepatitis A Vaccines Aged Out No longer eligible based on patient's age to complete this topic [facility]-IPV Vaccines Aged Out No longer e ligible based on patient's age to complete this topic [facility]-Pneumococcal Vaccine: Pediatrics (0 to 5 Years) and At-Risk Patients (6 to 49 Years) Aged Out No longer eligible b ased on patient's age to complete this topic [facility]-Rotavirus Vaccines Aged Out No lo nger eligible based on patient's age to complete this topic Procedures Procedure Name Priority Date/Time Associated Diagnosis Comments CYTO DATA CONVERSION Routine 07/10/2016 12:00 AM EST HIV 1/2 ANTIBODY/ANTIGEN SCREEN WITH REFLEX TO HIV I/II DIFFERENTIATION Routine 06/26/2016 9:00 AM EST from Last 3 Months or Most Recently Relevant to Health Maintenance Results * Cytology (07/10/2016 12:00 AM EST) 07/10/2016 07/11/2016 9:4 8 AM EST Narrative SUNQUEST - 07/26/2016 9:59 AM EST [facility] MR #: [id number] [facility] [address]ARN[place], [place] [address] 1990 (Age: 26) FW Collect Date: 07/10/2016 00:00 Receipt Date: 07/11/2016 09:48 Page 1 DEPARTMENT OF PATHOLOGY AND LABORATORY MEDICINE CYTOPATHOLOGY REPORT Email: [email or web address] [id number] ATTENDING MD/Practitioner: Kimberley Caldera MD Service: OBE Location: SOB Reported: 07/26/2016 09:59 Collected: 07/10/2016 00:00 INTERPRETATION A. THIN PREP (CERVICAL/VAGINAL): NEGATIVE FOR INTRAEPITHELIAL LESION OR MALIGNANCY. SATISFACTORY FOR EVALUATION; ENDOCERVICAL/ TRANSFORMATION ZONE COMPONENT PRESENT. Slide scanned and imaged by [employer] ThinPrep Imaging System with manual review of all selected vallecillo. Please correlate with HPV results (see microbiology report, or call [phone]). Please see (www.asccp.org) for suggested follow up. Electronically Signed Out By YOU Santiago (ASCP) YOU Rios (ASCP) YOU Santiago (ASCP) Cervical cytology is a screening test primarily for squamous cancers and precursors and has associated false negative and positive results. New technologies such as liquid based sampling may decrease but will not eliminate all false negative results. Regular screening and follow-up of unexplained clinical signs and symptoms are recommended to minimize false negative results. Please see the ASCCP website (www.asccp.org) for followup recommendations. If HPV testing was requested, correlation with the results is suggested (please call Microbiology at [phone] for results). CLINICAL INFORMATION: Menstrual History: : First Trimester Date of Last Menstrual Period: 04/23/2016 Other Clinical Conditions: Abnormal pap results elsewhere: h/o abnormal pap smears, had colpo, LEEP with normal repeat paps Date not provided Clinical information indicates patient has high risk factor(s). HPV testing requested. SPECIMEN DESCRIPTION: A: THIN PREP (CERVICAL/VAGINAL) THIN PREP PROCESS CELLULAR ENHANCEMENT ICD: F: A; DX IMAGE [id number] SNOMED CODES: A; [id number] [id number] In cases where a pathologist has signed out the report, the service has been rendered in part by a resident. The signing pathologist has performed and is responsible for the reported pathologic evaluation. Beulah Caldera MD LAB PATHOLOGY ORDERABLES Final Result Performing Organization Address [facility] Co de Phone Number SUNQUEST * HIV 1 & 2 Antibody/Antigen Screen (06/26/2016 9:00 AM EST) HIV 1 Result NONREACTIVE Screening for HIV 1 and 2 antibodies is NONREACTIVE. No confirmatory testing is required. SUNQUEST 06/26/2016 9:00 AM EST 06/26/2016 12:30 PM EST Beulah Caldera MD LAB BLOOD ORDERABLES Final Res ult Performing Organization Address [facility] Co de Phone Number SUNQUEST from Last 3 Months or Most Recently Relevant to Health Maintenance [place] [address] [place] [id number] [place] [address] Care Teams Kit Assembler Relationship Specialty Start Date End Date Pcp, No [address] [place] [address] PCP - General Family Medicine 06/07/22
--- OUTSIDE RECORDS SUMMARY | 2024-12-31 08:23 | XMS_ITS | Clinical Summary ---
Author Organization [facility] Address [address] [place] [address] Care Team Providers Care Resource Recovery Engineer Name Role Phone System, Referring Not In Primary Care Provider U navailable Allergies No known active allergies Medications oxyCODONE-acetamino phen (PERCOCET) 5-325 MG per tablet Take 1 tablet by mouth every 4 hours as needed for Pain Active ondansetron (ZOFRAN ODT) 4 MG disintegrating tablet Take 1 tablet by mouth every 8 hours as needed for Nausea 15 tablet 6 Active tamsulosin (FLOMAX) 0.4 MG capsule Take 1 capsule by mouth daily for 10 doses 10 capsule 3 6 Active Social History Tobacco Use Types Packs/Day Years Used Date Smoking Tobacco: Never Assessed Comments No Sex and Gender Information Value Date Recorded Sex Assigned at Not on file Legal Sex Female 7:37 PM EDT Gender Identity Not on file Sexual Orientation Not on file Last Filed Vital Signs Vital Sign Reading Time Taken Comments Blood Pressure 115/85 03/05/2016 7:40 PM EDT Pulse 112 03/05/2016 7:40 PM EDT Temperature 36.9 C (98.5 F) 03/05/2016 7:40 PM EDT Respiratory Rate 16 03/05/2016 7:40 PM EDT Oxygen Saturation 99% 03/05/2016 7:40 PM EDT Inhaled Oxygen Concentration - - Weight 88.5 kg (195 lb) 03/05/2016 2:12 PM EDT Height 160 cm (5' 3 ) 03/05/2016 2:12 PM EDT Body Mass Index 34.54 03/05/2016 2:12 PM EDT Plan of Treatment Not on file Care Teams Resource Recovery Engineer Relationship Specialty Start Date End Date System, Referring Not In PCP - General 03/05/16
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
--- NOTE | 2024-12-31 08:30 | US_ITS ---
PROCEDURE: US TRANSVAGINAL CLINICAL INDICATION: Needs for AUB COMPARISON: CT CT PELVIS WO CON from 04/14/[address] ABDOMEN PELVIS W CON from 09/25/2023 US US TRANSVAGINAL from 09/25/2023 FINDINGS: Transvaginal sonographic images of the pelvis were obtained. UTERUS: 8.8 cm x 5.1cmx 4.6 cm anteverted with a combined endometrial thickness of 6.9mm. A scar seen with a small anterior cystic defect. LEFT OVARY: 3.2cmx2.0cmx2.3cm with a volume of 7.8ml. There are multiple small peripheral follicles giving the ovary a polycystic appearance. RIGHT OVARY: 3.4cmx 2.6 cmx2.5cm with a volume of 11.5ml. There are multiple small peripheral follicles giving the ovary a polycystic appearance. Both ovaries are seen and appear polycystic. Doppler flow to both ovaries are seen. There is no fluid in the cul-de-sac. IMPRESSION: 1. Anteverted uterus normal in shape and size. The endometrium is thin measuring 6.9 mm. 2. There is an anterior scar with a cystic defect in the inferior aspect of the scar. 3. Both ovaries are seen and appear polycystic. 4. No fluid in the cul-de-sac. Dictated by: Chinmay Pittman MD 12/31/2024 15:32 Chinmay Pittman MD in OV 12/31/2024 15:32
[2024-12-31 09:05] LABS: Basophils % 0.4 % (0.1-2.0); Eosinophils # 0.2 Kmm3 (0.0-0.4); Eosinophils % 3.9 % (0.1-12.0); Hematocrit 41.3 % (37.0-47.0); Hemoglobin 13.8 g/dL (12.2-16.2); Immature Granulocytes # 0.01 10^3uL; Immature Granulocytes % 0.2 %; Lymphocytes # 1.8 K/mm3 (0.7-4.5); Lymphocytes % 36.5 % (10-50); Mean Corpuscular HGB Conc 33.4 g/dL (31.8-35.4); Mean Corpuscular Hemoglobin 29.9 pg (27.0-31.2); Mean Corpuscular Volume 89.4 fl (81-99); Mean Platelet Volume 10.5 fl (7.4-10.4); Monocytes # 0.5 K/mm3 (0.1-1.0); Monocytes % 11.2 % (1.7-9.3); Neutrophils # 2.3 K/mm3 (1.8-7.8); Neutrophils % 47.8 % (37.0-80.0); Nucleated Red Blood Cells # 0 10^3/uL; Nucleated Red Blood Cells % 0 %; Platelet Count 155 K/mm3 (142-424); Red Blood Count 4.62 M/mm3 (4.20-5.40); Red Cell Distribution Width 11.9 % (11.5-17.5); Red Cell Distribution Width-SD 38.8 fL; White Blood Count 4.8 K/mm3 (4.8-10.8)
[2024-12-31 09:32] LABS: Albumin Level 4.5 g/dl (3.5-5.0); Chloride 107 mmol/L (98-107); Sodium 139 mmol/L (136-145)
[2024-12-31 09:35] LABS: Alanine Aminotransferase 23 U/L (12-78); Albumin/Globulin Ratio 1.6 (1.1-1.8); Aspartate Amino Transferase 26 U/L (14-36); Blood Urea Nitrogen 17 mg/dl (7-17); Carbon Dioxide 28 mmol/L (22.0-30.0); Estimated Glomerular Filt Rate 97 ml/min (>60); GFR (African American) 117 ML/MIN (>60); Globulin 2.8 g/dL (1.3-3.2); Total Protein,Serum 7.3 g/dl (6.3-8.2)
[2024-12-31 09:36] LABS: Alkaline Phosphatase 69 U/L (38-126); Bilirubin,Total 0.5 mg/dl (0.2-1.3); Calcium 9.4 mg/dl (8.4-10.2); Glucose 97 mg/dl (74-100); Hemoglobin A1C 5.2 % (4.0-6.0)
[2024-12-31 10:08] LABS: Thyroid Stimulating Hormone 1.92 uIU/mL (0.465-4.68)
[2025-01-01 07:16] LABS: Estradiol 54.2 pg/mL (.); Insulin Level Total 6.9 uIU/mL (2.6-24.9)
[2025-01-01 08:13] LABS: FSH 6.2 mIU/mL (.); Prolactin 20.2 ng/mL (4.8-33.4); Testosterone,Total 56 ng/dL (8-60)
[2025-01-01 12:15] LABS: Cortisol,AM 8.7 ug/dL (6.2-19.4)
== END 2024-12-31 23:59 | disposition home or self-care (01) ==
LOC: RAD 08:16
PROVIDERS: PCP Family Medicine; Visit Provider Obstetrics & Gynecology
DX: R63.5 Abnormal weight gain (principal); N93.9 Abnormal uterine and vaginal bleeding, unspecified; R53.83 Other fatigue; N83.02 Follicular cyst of left ovary; N83.01 Follicular cyst of right ovary; N85.4 Malposition of uterus
CPT/HCPCS: 36415; 76830; 80053; 82533; 82670; 83001; 83036; 83525; 84146; 84403; 84443; 85025

== ENCOUNTER 2025-01-27 14:55 | Outpatient (CLI) | payer OTHER, SELFPAY ==
--- OUTSIDE RECORDS SUMMARY | 2025-01-27 15:00 | XMS_ITS | Clinical Summary ---
Author Organization Healthcare Address [address] [place] [address] Care Team Providers Care Gas Plumbing Inspector Name Role Phone Pcp, No Primary Care [...] UKY-Depression Screening 1992 UKY-Hepatitis C Screening 1992 [facility]-Infant/Child/Adol SDOH Screenings 1992 UKY-Varicella Vaccines (1 of 2 - 13+ 2-dose series) 02/06/2005 HPV Vaccines (1 - 3-dose series) 02/06/2007 UKY- SDOH Screenings 02/06/2010 UKY-Adult SDOH Screenings 02/06/2010 UKY-Hepatitis B Vaccines (1 of 3 - 19+ 3-dose series) 02/06/2011 UKY-Pap Smear 07/10/2019 07/10/2016 UKY-Cervical Cancer Screening 02/06/2022 UKY-HPV/Cotest 02/06/2022 07/10/2016 [id number] Vaccine (1 - 2023- season) 2024 UKY-Influenza Vaccine (#1) 2025 04/03/2022 UKY-DTaP,Tdap,and Td Vaccine s (3 [...] Narrative SUNQUEST - 07/26/2016 9:59 AM EST [facility] MR #: [id number] [facility] [place] [address] 1990 (Age: 26) FW Collect Date: 07/10/2016 00:00 Receipt Date: 07/11/2016 09:48 Page 1 DEPARTMENT OF PATHOLOGY AND LABORATORY MEDICINE CYTOPATHOLOGY REPORT Email: [email or web address] ATTENDING MD/Practitioner: Kimberley Caldera MD Service: OBE Location: [facility] Reported: 07/26/2016 09:59 Collected: 07/10/2016 00:00 INTERPRETATION A. THIN PREP (CERVICAL/VAGINAL): NEGATIVE FOR INTRAEPITHELIAL LESION OR MALIGNANCY. SATISFACTORY FOR EVALUATION; ENDOCERVICAL/ TRANSFORMATION ZONE COMPONENT PRESENT. Slide scanned and imaged by [employer] ThinPrep Imaging System with manual review of all selected vallecillo. Please correlate with HPV results (see microbiology report, or call [phone]). Please see ([email or web address]) for suggested follow up. [...] results is suggested (please call Microbiology at [phone] for results). CLINICAL INFORMATION: Menstrual History: : First Trimester Date of Last Menstrual Period: 04/23/2016 Other Clinical Conditions: Abnormal pap results elsewhere: h/o abnormal pap smears, had colpo, LEEP with normal repeat paps Date not provided Clinical information indicates patient has high risk factor(s). HPV testing requested. SPECIMEN DESCRIPTION: A: THIN PREP (CERVICAL/VAGINAL) THIN PREP PROCESS CELLULAR ENHANCEMENT ICD: F: A; DX IMAGE 35987 SNOMED CODES: A; X1E631 [id number] M-[id number] M-05739 In cases where a pathologist has signed out the report, the service has been rendered in part by a resident. The signing pathologist has performed and is responsible for the reported pathologic evaluation. Beulah Caldera MD LAB PATHOLOGY ORDERABLES Final Result Performing Organization Address City/[facility] Co de Phone Number SUNQUEST * HIV 1 & 2 Antibody/Antigen Screen (06/26/2016 9:00 AM EST) HIV 1 Result NONREACTIVE Screening for HIV 1 and 2 antibodies is NONREACTIVE. No confirmatory testing is required. SUNQUEST 06/26/2016 9:00 AM EST 06/26/2016 12:30 PM EST Beulah Caldera MD LAB BLOOD ORDERABLES Final Res ult SUNQUEST from Last 3 Months or Most Recently Relevant to Health Maintenance Insurance HUMAN Care Teams Gas Plumbing Inspector Relationship Specialty Start Date End Date Pcp, No [address] [place] [address] PCP - General Family Medicine 06/07/22
--- OUTSIDE RECORDS SUMMARY | 2025-01-27 15:00 | XMS_ITS | Clinical Summary ---
Author Organization [facility] Address [address] [place] [address] Care Team Providers Care Band Log Mill And Carriage Operator Name Role Phone System, Referring Not In [...] of Treatment Not on file Care Teams Band Log Mill And Carriage Operator Relationship Specialty Start Date End Date System, Referring Not In PCP - General 03/05/16
== END 2025-01-27 23:59 | disposition home or self-care (01) ==
LOC: LAB 14:56
PROVIDERS: PCP Family Medicine; Visit Provider Obstetrics & Gynecology
DX: Z34.90 Encounter for supervision of normal pregnancy, unspecified, unspecified trimester (principal)
CPT/HCPCS: 36415; 84144; 84702

== ENCOUNTER 2025-02-03 13:56 | Outpatient (CLI) | payer OTHER, SELFPAY ==
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
--- OUTSIDE RECORDS SUMMARY | 2025-02-03 14:05 | XMS_ITS | Clinical Summary ---
Author Organization [facility] Address [address] [place] [address] Care Team Providers Care Contract Negotiator Name Role Phone System, Referring Not In [...] of Treatment Not on file Care Teams Contract Negotiator Relationship Specialty Start Date End Date System, Referring Not In PCP - General 03/05/16
--- OUTSIDE RECORDS SUMMARY | 2025-02-03 14:05 | XMS_ITS | Data Portability ---
Author Organization [facility] JARED [facility] [place] [facility] Address [address] [facility] [address] [place] [address] Care Team Providers Care Assistant Manager Pt Name Role Phone NEHAL COOK Referring Provider [phone] Assessment No assessment recorded. Plan of Treatment Reminders Order Date Submit Date Provider Last Modified By Organization Details Last Modified Time Details Appointments None recorded. Lab dhea-sulfat e, serum [id number] [facility], [address] [place] [address], [id number], 13:06:52 testosteron e, free + total, serum [address] [facility], [address] [place] [address], [address], 13:07:19 cortisol, serum or plasma [id number] [facility], [address] [place] [address], [address], 13:08:39 prolactin, serum [address] [facility], [address] [place] [address], [address], 13:09:33 glycohemogl obin, total, blood [address] [facility], [address] [place] [address], [address], 13:07:46 BMP, serum or plasma [address], [address] [place] [address], [address], 13:08:57 C-peptide, serum [address], [address] [place] [address], [address], 13:09:14 T4, free, serum [address], [address] [place] [address], [address], 13:06:06 TSH, serum or plasma [address], [address] [place] [address], [address], 13:08:07 T3, free, serum or plasma [address], [address] [place] [address], [address], 13:06:26 thyroid peroxidase (tpo) Ab, serum [address], [address] [place] [address], [address], 13:08:22 Referral None recorded. Procedures None recorded. Surgeries None recorded. Imaging None recorded. Medication Orders None recorded. Patient TargetsNo targets recorded. Patient Instructions Encounter Date Encounter Id Patient Instructions Last Modified By Organization Details Last Modified Time 02/25/2021 [id number] polycystic ovary syndrome: care instructions Not available 02/25/2021 14:22:07 I would like to thank Dr. Cook for the opportunity to participate in the care of this patient. Not available 02/25/2021 15:06:48 Reason for Referral None Reported. Procedures Surgical History Date Name Laterality Status Provider Name and Address Organization Details Recorded Time open reduction of fracture of fibula completed [facility] 02/25/2021 13:41:35 Dilation and curettage completed [facility] 02/25/2021 13:42:02 classical section completed [facility] 02/25/2021 13:42:11 laparoscopy completed [facility] 02/25/2021 13:42:57 Imaging Results None recorded. Procedure [...] index (BMI) Body height Heart rate Systolic And Diastolic Provider Name and Address Organization Details Last Updated DateTime 02/25/2021 93445.1 g 34.7 kg/m2 160.02 cm 92 /min 118/68 mm[Hg] Valeri [facility] 02/25/2021 13:35:59 Social History Question Answer Notes LastModified by Organizat ion Details LastModified Time Tobacco Smoking Status Never Smoker [facility] 02/25/2021 13:41:12 What Is Your Level Of [...] SNOMED-CT Code Diagnosis ICD10 Code Diagnosis Note [id number] BLU MANJARREZ APRN ENDOCRINO LOGY [address] [place] [address] 02/25/2021 13:29:43 02/28/2021 11:14:48 Thyroid function tests abnormal 691061144 R94.6 Normal TSH and total T4 with [...] after review of labs results. Irregular periods 615219 07 N92.6 Symptoms appear consistent with PCOS.Will check prolactin along with other labs as noted below. Female hirsutism 8489999 9 L68.0 Labs as noted below. Abnormal weight gain 161 284597 R63.5 Labs as noted below. Health Concerns Section Related Observation LastModified by Organization Detai ls LastModified Time None Recorded Concern Status LastModified by Organization Details LastModified Time None Recorded Advance Directives Directive None Recorded Payers Insurance Date Sequence Insurance Name Policy Number Policy Morris Covered Member ID Morris Member ID Guarantor Name 04/11/2021 1 [place] [id number] Shanda Solares [id number] Shanda Solares 04/11/2021 1 [place] [id number] Tip oSlares [id number] Shanda Solares Notes Date Note Type [...] early menopause. She had not seen her enterostomal therapy nurse for over a year. She has had [...] history of thyroid cancer: no BLU MANJARREZ, SALAD CHEF [address] [place], [address], [facility] 02/25/2021 16:32:09 OBGyn Episode No OBEpisode recorded.
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
--- OUTSIDE RECORDS SUMMARY | 2025-02-03 14:05 | XMS_ITS | Clinical Summary ---
Author Organization [facility] Address [address] [place] [address] Care Team Providers Care Financial Underwriter Name Role Phone Pcp, No Primary Care [...] UKY-Cervical Cancer Screening 02/06/2022 UKY-HPV/Cotest 02/06/2022 07/10/2016 [id number] Vaccine (1 - 2023- season) 2024 UKY-Influenza [...] Narrative SUNQUEST - 07/26/2016 9:59 AM EST [facility] MR #: [id number] [facility] [place] [address] 1990 (Age: 26) FW Collect Date: 07/10/2016 00:00 Receipt Date: 07/11/2016 09:48 Page 1 DEPARTMENT OF PATHOLOGY AND LABORATORY MEDICINE CYTOPATHOLOGY REPORT Email: [email or web address] ATTENDING MD/Practitioner: Kimberley Caldera MD Service: OBE Location: [facility] Reported: 07/26/2016 09:59 Collected: 07/10/2016 00:00 INTERPRETATION A. THIN PREP (CERVICAL/VAGINAL): NEGATIVE FOR INTRAEPITHELIAL LESION OR MALIGNANCY. SATISFACTORY FOR EVALUATION; ENDOCERVICAL/ TRANSFORMATION ZONE COMPONENT PRESENT. Slide scanned and imaged by [employer] ThinPrep Imaging System with manual review of all selected vallecillo. Please correlate with HPV results (see microbiology report, or call [phone]). Please see ([email or web address]) for suggested follow up. [...] results is suggested (please call Microbiology at [phone] for results). CLINICAL INFORMATION: Menstrual History: : First Trimester Date of Last Menstrual Period: 04/23/2016 Other Clinical Conditions: Abnormal pap results elsewhere: h/o abnormal pap smears, had colpo, LEEP with normal repeat paps Date not provided Clinical information indicates patient has high risk factor(s). HPV testing requested. SPECIMEN DESCRIPTION: A: THIN PREP (CERVICAL/VAGINAL) THIN PREP PROCESS CELLULAR ENHANCEMENT ICD: F: A; DX IMAGE 13365 SNOMED CODES: A; Z5Y659 V01666 M-24049 M-72434 In cases where a pathologist has signed out the report, the service has been rendered in part by a resident. The signing pathologist has performed and is responsible for the reported pathologic evaluation. Beulah Caldera MD LAB PATHOLOGY ORDERABLES Final Result Performing Organization Address City/[facility] Co de Phone Number SUNQUEST * HIV [...] to Health Maintenance Insurance HUMAN Care Teams Financial Underwriter Relationship Specialty Start Date End Date Pcp, No [address] [place] [address] PCP - General Family Medicine 06/07/22
== END 2025-02-03 23:59 | disposition home or self-care (01) ==
LOC: LAB 13:57
PROVIDERS: PCP Family Medicine; Visit Provider Obstetrics & Gynecology
DX: Z32.01 Encounter for pregnancy test, result positive (principal); O20.9 Hemorrhage in early pregnancy, unspecified; Z3A.00 Weeks of gestation of pregnancy not specified
CPT/HCPCS: 36415; 84144; 84702

== ENCOUNTER 2025-02-04 11:06 | Outpatient (CLI) | payer OTHER, SELFPAY ==
--- OUTSIDE RECORDS SUMMARY | 2025-02-04 11:12 | XMS_ITS | Clinical Summary ---
Author Organization Healthcare Address [address] [place] [address] Care Team Providers Care Reference Test Clerk Name Role Phone Pcp, No Primary Care [...] UKY-Cervical Cancer Screening 02/06/2022 UKY-HPV/Cotest 02/06/2022 07/10/2016 [id number] Vaccine (1 - 2023- season) 2024 UKY-Influenza [...] Narrative SUNQUEST - 07/26/2016 9:59 AM EST [facility] MR #: [id number] [facility] [place] [address] 1990 (Age: 26) FW Collect Date: 07/10/2016 00:00 Receipt Date: 07/11/2016 09:48 Page 1 DEPARTMENT OF PATHOLOGY AND LABORATORY MEDICINE CYTOPATHOLOGY REPORT Email: [email or web address] ATTENDING MD/Practitioner: Kimberley Caldera MD Service: OBE Location: [facility] Reported: 07/26/2016 09:59 Collected: 07/10/2016 00:00 INTERPRETATION A. THIN PREP (CERVICAL/VAGINAL): NEGATIVE FOR INTRAEPITHELIAL LESION OR MALIGNANCY. SATISFACTORY FOR EVALUATION; ENDOCERVICAL/ TRANSFORMATION ZONE COMPONENT PRESENT. Slide scanned and imaged by [employer] ThinPrep Imaging System with manual review of all selected vallecillo. Please correlate with HPV results (see microbiology report, or call [phone]). Please see ([email or web address]) for suggested follow up. [...] results is suggested (please call Microbiology at [phone] for results). CLINICAL INFORMATION: Menstrual History: : First Trimester Date of Last Menstrual Period: 04/23/2016 Other Clinical Conditions: Abnormal pap results elsewhere: h/o abnormal pap smears, had colpo, LEEP with normal repeat paps Date not provided Clinical information indicates patient has high risk factor(s). HPV testing requested. SPECIMEN DESCRIPTION: A: THIN PREP (CERVICAL/VAGINAL) THIN PREP PROCESS CELLULAR ENHANCEMENT ICD: F: A; DX IMAGE 21955 SNOMED CODES: A; Y5U151 F59261 [id number] [id number] In cases where a pathologist has signed out the report, the service has been rendered in part by a resident. The signing pathologist has performed and is responsible for the reported pathologic evaluation. Beulah Caldera MD LAB PATHOLOGY ORDERABLES Final Result Performing Organization Address City/[facility] Co de Phone Number SUNQUEST * HIV [...] Recently Relevant to Health [place] [address] Care Teams Reference Test Clerk Relationship Specialty Start Date End Date Pcp, No [address] [place] [address] PCP - General Family Medicine 06/07/22
--- NOTE | 2025-02-04 11:30 | US_ITS ---
PROCEDURE: US TRANSVAGINAL CLINICAL INDICATION: Needs GARFIELD for positive w/ hx tubal COMPARISON: CT CT ABDOMEN PELVIS W CON from 09/25/2023 US US TRANSVAGINAL from 09/25/2023 US US TRANSVAGINAL from 12/31/2024 FINDINGS: Transvaginal sonographic images of the pelvis were obtained. UTERUS: Anteverted uterus. The endometrium appears thickened A scar is seen. Within the endometrium there is a small gestational sac measuring 3.4 mm in size. A nabothian cyst measuring 6.6 mm is seen in the cervix. The anterior myometrium appears somewhat thicker than the posterior myometrium. Questionable significance. LEFT OVARY: 3.0cmx1.4cmx2.3cm with a volume of 5.2ml. There are multiple small peripheral follicles. Adjacent to the left ovary there is a small cystic area measuring 8.9 mm x 8.1 mm. 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 RIGHT OVARY: 3.1cmx 2.4cmx2.6 cm with a volume of 10.2ml. Both ovaries are seen and appear normal. Doppler flow to both ovaries are seen. There is trace fluid in the cul-de-sac. IMPRESSION: 1. Anteverted uterus. The endometrium is thickened. Within the endometrial cavity near the fundus is a small 3 mm gestational sac. 2. Both ovaries are seen and appear normal. There is a small 8 mm cystic area adjacent to the left ovary that could be a nabothian cyst. 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 3. There is trace fluid in the cul-de-sac. 4. Suggest repeat scan in 1 week to confirm viability of . Dictated by: Chinmay Pittman MD 02/04/2025 14:11 Chinmay Pittman MD in [place] 02/04/2025 14:11
== END 2025-02-04 23:59 | disposition home or self-care (01) ==
LOC: RAD 11:06
PROVIDERS: PCP Family Medicine; Visit Provider Obstetrics & Gynecology
DX: N83.202 Unspecified ovarian cyst, left side (principal); Z32.01 Encounter for pregnancy test, result positive; Z98.890 Other specified postprocedural states
CPT/HCPCS: 76830

== ENCOUNTER 2025-02-20 14:40 | Outpatient (CLI) | payer OTHER, SELFPAY ==
--- OUTSIDE RECORDS SUMMARY | 2016-02-01 12:33 | XMS_ITS | Encounter Summary ---
[facility] Organization [facility] Address [address] [place] [id number] Care Team Providers Care Pickle Processor Name Role Phone Provider, No Known Primary Care Provider [phone] Encounter Details Date Type Department Care Team (Latest Contact Info) Description 02/01/2016 12:33 PM EDT Hospital Encounter [facility] [phone] Encounter for supervision of normal first in [...] EDT PAT NAME: SHANDA GARNICA MED REC#: [id number] DA: [id number] PAT GEND: F PAT TYPE: O EXAM IRINA: [id number] REF PHYS YESICA BARNARD Indication ======== anatomy [...] 61% EFW 338 g Calculated by: Hadlock (HSP-PR-NE-FL) EFW (lb) 0 lb EFW (oz) 12 [...] subsequent visit to complete the anatomic screening. Endoscopy Technician: Fern Gallegos RDSD Physician: Eliezer Morris MD Electronically signed by: Eliezer Morris MD at: 14:42 Procedure Note Eliezer Morris MD - 02/01/2016 PAT NAME: SHANDA GARNICA MED REC#: [id number] DA: 1990 PAT GEND: F PAT TYPE: O EXAM IRINA: [id number] REF PHYS YESICA BARNARD Indication ======== anatomy [...] Cerebellum tr21.3 mm66% 20w 2d CM5.4 mm61% CYI299 g Calculated by:Princess (LBL-EI-FS-FL) EFW (lb)0 lb EFW (oz)12 oz Cephalic index0.701% HC / AC1.2180% FL / BPD0.7151% FL / AC0.2249% ILQ354 bpm Anatomy Cranium:Cranial vault appears intact with [...] a subsequent visit tocomplete the anatomic screening. Endoscopy Technician: Fern Gallegos RDMS Physician: Eliezer Morris MD Electronically signed by: Eliezer Morris MD at: 14:42 us Yesica Barnard MD [facility] US ORDERABLES Final Result documented in this encounter Visit Diagnoses Diagnosis Encounter for supervision of normal first in second trimester documented in this encounter Care Teams Pickle Processor Relationship Specialty Start Date End Date Provider, [place] [address] PCP - General 12/29/15 documented as of this encounter
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
--- OUTSIDE RECORDS SUMMARY | 2025-02-20 14:42 | XMS_ITS | Clinical Summary ---
Author Organization Healthcare Address [address] [place] [address] Care Team Providers Care Disability Representative Name Role Phone Pcp, No Primary Care [...] [facility]-Cervical Cancer Screening 02/06/2022 [facility]-HPV/Cotest 02/06/2022 07/10/2016 [id number] Vaccine (1 - 2023- season) 2024 [facility]-Influenza [...] Narrative SUNQUEST - 07/26/2016 9:59 AM EST [facility] MR #: [id number] [facility] [place] [address] 1990 (Age: 26) FW Collect Date: 07/10/2016 00:00 Receipt Date: 07/11/2016 09:48 Page 1 DEPARTMENT OF PATHOLOGY AND LABORATORY MEDICINE CYTOPATHOLOGY REPORT Email: [email or web address] [phone] ATTENDING MD/Practitioner: Kimberley Caldera MD Service: OBE Location: [facility] Reported: 07/26/2016 09:59 Collected: 07/10/2016 00:00 INTERPRETATION A. THIN PREP (CERVICAL/VAGINAL): NEGATIVE FOR INTRAEPITHELIAL LESION OR MALIGNANCY. SATISFACTORY FOR EVALUATION; ENDOCERVICAL/ TRANSFORMATION ZONE COMPONENT PRESENT. Slide scanned and imaged by LineaQuattro ThinPrep Imaging System with manual review of all selected vallecillo. Please correlate with HPV results (see microbiology report, or call [phone]). Please see ([email or web address]) for suggested follow up. [...] results is suggested (please call Microbiology at [phone] for results). CLINICAL INFORMATION: Menstrual History: : First Trimester Date of Last Menstrual Period: 04/23/2016 Other Clinical Conditions: Abnormal pap results elsewhere: h/o abnormal pap smears, had colpo, LEEP with normal repeat paps Date not provided Clinical information indicates patient has high risk factor(s). HPV testing requested. SPECIMEN DESCRIPTION: A: THIN PREP (CERVICAL/VAGINAL) THIN PREP PROCESS CELLULAR ENHANCEMENT ICD: F: A; DX IMAGE 21085 SNOMED CODES: A; [id number] [id number] [id number] In cases where a pathologist has signed out the report, the service has been rendered in part by a resident. The signing pathologist has performed and is responsible for the reported pathologic evaluation. Beulah Caldera MD LAB PATHOLOGY ORDERABLES Final Result Performing Organization Address City/[facility] Co de Phone Number SUNQUEST * [...] to Health Maintenance Insurance HUMAN Care Teams Disability Representative Relationship Specialty Start Date End Date Pcp, No [address] [place] [address] PCP - General Family Medicine 06/07/22
--- OUTSIDE RECORDS SUMMARY | 2025-02-20 14:42 | XMS_ITS | Encounter Summary ---
[facility] Address [address] [place] [address] Care Team Providers Care Farmworker Rice Name Role Phone Provider, No Known Primary Care Provider [phone] Encounter Details Date Type Department Care Team (Late st Contact Info) Description 02/21/2016 Telephone [facility] OBGYN [address] [facility] [address] [place] [address] Jesus Carlson MD [address] [facility] [address] [place] [address] Social History Tobacco Use Types Packs/Day Years Used Date Smoking Tobacco: Never Alcohol Use Standard Drinks/Week Comments No 0 (1 standard drink = 0.6 oz pur e alcohol) Comments Yes Sex and Gender Information Value Date Recorded Sex Assigned at Not on file Legal Sex Female 1:43 PM EDT Gender Identity Not on file Sexual Orientation Not on file documented as of this encounter Plan of Treatment Not on file documented as of this encounter Visit Diagnoses Not on filedocumented in this encounter Care Teams Farmworker Rice Relationship Specialty Start Date End Date Provider, No Known [place], [place] [id number] PCP - General 12/29/15 documented as of this encounter
--- OUTSIDE RECORDS SUMMARY | 2025-02-20 14:42 | XMS_ITS | Encounter Summary ---
[facility] Address [address] [place] [phone] Care Team Providers Care Aba Tutor Name Role Phone Provider, No Known Primary Care Provider [phone] Encounter Details Date Type Department Care Team (Late st Contact Info) Description 02/23/2016 Telephone [facility] OBGYN [address] [facility] [address] [place] [address] Jesus Carlson MD [address] [facility] [address] [place] [address] Social History Tobacco Use Types Packs/Day Years [...] on file documented as of this encounter Miscellaneous Notes * Telephone Encounter - Nichole Galvez RN - 02/24/2016 9:29 AM EDT Pt states the discharge is very scant, and sometimes has a yellow tinge. She wears one panty liner a day and that is very sufficient to keep dry. Pt was told this is most likely normal vaginal discharge in , but if it increases, she needs to come into the office. She also has cold symptoms, and safe OTC options were discussed. documented in this encounter Plan of Treatment Not on file documented as of this encounter Visit Diagnoses Not on filedocumented in this encounter Care Teams Aba Tutor Relationship Specialty Start Date End Date Provider, No Known [place] [id number] PCP - General 12/29/15 documented as of this encounter
--- OUTSIDE RECORDS SUMMARY | 2025-02-20 14:42 | XMS_ITS | Clinical Summary ---
Author Organization [facility] Address [address] [place] [address] Care Team Providers Care Balance Wheel Motion Inspector Name Role Phone Provider, No Known Primary Care Provider [phone] Allergies No known active allergies Medications sertraline (ZOLOFT) 25 MG tablet Take 25 mg by mouth Daily. Active Vit-Fe Fumarate-FA (PREPLUS) 27-1 MG tablet TAKE ONE TABLET BY MOUTH ONCE DAILY 30 tablet 2 12/28/2016 Active Active Problems Problem Noted Date Diagnosed Date Incompetent cervix 02/26/2016 labor in second trimester with d elivery 02/25/2016 Encounter for supervision of normal first in second trimester 12/29/2015 Family History Medical History Relation Name Comments Stroke Maternal Grandfather Breast cancer Maternal Grandmother Melanoma Maternal Grandmother Osteoporosis Maternal Grandmother Hypertension Mother Ovarian cancer Other pat 1st cousin Ovarian cancer Paternal Aunt Diabetes Paternal Grandmother Relation Name Status Comments Maternal Grandfather Maternal Grandmother Mother Other pat 1st cousin Alive Paternal Aunt Paternal Grandmother Social History Tobacco Use Types Packs/Day Years [...] e 05/01/2023 Family and Community Support Answer Carl e Recorded Help with Day-to-Day Activities Not [...] Sign Reading Time Taken Comments Blood Pressure 130/84 05/30/2016 7:14 PM EST Pulse 86 05/30/2016 7:14 PM EST Temperature 37.1 C (98.8 F) 05/30/2016 7:14 PM EST Respiratory Rate 20 05/30/2016 7:14 PM EST Oxygen Saturation 98% 05/30/2016 7:14 PM EST Inhaled Oxygen Concentration - - Weight 81.5 kg (179 lb 9.6 oz) 05/30/2016 7:14 P M EST Height 160 cm (5' 3 ) 05/30/2016 7:14 PM EST Body Mass Index 31.81 05/30/2016 7:14 PM EST Plan of Treatment Health Maintenance Due Date Last Done Comments ANNUAL PHYSICAL 1990 Annual Gynecologic Pelvic an d Breast Exam 1990 HEPATITIS C SCREENING 1990 TDAP/TD VACCINES (1 - Tdap) 02/06/2011 COVID-19 Vaccine ( - 2023-2 5 season) 2024 INFLUENZA VACCINE 04/22/2025 Pneumococcal Vaccine 0-49 Aged Out No longer eligible based on patient's age to complete this topic [place] [address] [place] [address] PPO Advance Directives * Full Code (Latest Code Status on File) Date Activated Date Inactivated Comments 02/25/2016 12:03 PM 02/26/2016 4:01 PM Care Teams Balance Wheel Motion Inspector Relationship Specialty Start Date End Date Provider, [place] [address] PCP - General 12/29/15
--- OUTSIDE RECORDS SUMMARY | 2025-02-20 14:43 | XMS_ITS | Clinical Summary ---
Author Organization [facility] Address [address] [facility], [address] [place] [address] Care Team Providers Care X Ray Equipment Servicer Name Role Phone System, Referring Not In [...] of Treatment Not on file Care Teams X Ray Equipment Servicer Relationship Specialty Start Date End Date System, Referring Not In PCP - General 03/05/16
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
--- NOTE | 2025-02-20 15:00 | US_ITS ---
PROCEDURE: US OB <= 14 WEEKS FETUS CLINICAL INDICATION: Needs for dates and viability COMPARISON: CT CT ABDOMEN PELVIS W CON from 09/25/2023 US US TRANSVAGINAL from 09/25/2023 US US TRANSVAGINAL from 12/31/2024 US US TRANSVAGINAL from 02/04/2025 FINDINGS: Transvaginal sonographic images of the pelvis were obtained. From her last menstrual period she is 7weeks 3days. An intrauterine gestational sac is present with a pole with a crown-rump length of 0.46cm This correlates to a gestational age of 6weeks 2days. FLAKITA 10/14/2025 heart tones are present with an FHR of 103bpm. Yolk sac is noted. The yolk sac measures 6.1mm. The right ovary is seen and appears normal. The left ovary is seen and appears normal. There is no fluid in the cul-de-sac. IMPRESSION: 1. Viable embryo within the uterine cavity. cardiac activity is seen. 2. The embryo measures 6 weeks 2 days and her due date should be revised to reflect this. The revised due date will be 10/14/2025. 3. Both ovaries are seen and appear normal. Dictated by: Chinmay Pittman MD 02/21/2025 19:13 Chinmay Pittman MD in OV 02/21/2025 19:13
== END 2025-02-20 23:59 | disposition home or self-care (01) ==
LOC: RAD 14:40
PROVIDERS: PCP Family Medicine; Visit Provider Obstetrics & Gynecology
DX: Z32.01 Encounter for pregnancy test, result positive (principal); Z3A.01 Less than 8 weeks gestation of pregnancy
CPT/HCPCS: 76801

== ENCOUNTER 2025-03-01 03:04 | Emergency (ER) | payer OTHER, SELFPAY ==
--- OUTSIDE RECORDS SUMMARY | 2016-02-01 12:33 | XMS_ITS | Encounter Summary ---
[facility] Address [address] [place] [address] Care Team Providers Care Quality Technician Fiberglass Name Role Phone Provider, No Known Primary Care Provider Encounter Details Date Type Department Care Team (Latest Contact Info) Description 02/01/2016 12:33 PM EDT Hospital Encounter [facility] [phone] Encounter for supervision of normal first in second trimester Social History Tobacco Use Types Packs/Day Years Used Date Smoking Tobacco: Former Cigarettes 0 02/24/2006 - 10/11/2015 Alcohol Use Standard Drinks/Week Comments No 0 (1 standard drink = 0.6 oz pur e alcohol) Abuse Screen Answer Date Recorded Unsafe at Home or Work/School Not on file Feels Threatened by Someone? Not on file 04/2023 Does Anyone Keep You from Co ntacting Others or Doint Things Outside the Home? Not on file 05/01/2023 Physical Sign of Abuse Present Not on file 1 Housing Stability Answer Date Recorded Current Living Arrangements Not on file 04/22 Potentially Unsafe Housing Conditions Not on carlos e 05/01/2023 Family and Community Support Answer Irina e Recorded Help with Day-to-Day Activities Not on file 05/01/2023 Lonely or Isolated Not on file 05/01/2023 Employment Answer Date Recorded Do you want help finding or keeping work or a kelsie b? Not on file 05/01/2023 Disabilities Answer Date Recorded Concentrating, Remembering, or Making Decisions Difficulty Not on file 05/01/2023 Doing Errands Independently Difficulty Not on fi le 05/01/2023 Education Answer Date Recorded Help with school or training? Not on file Preferred Language Not on file 05/01/2023 Comments No Sex and Gender Information Value Date Recorded Sex Assigned at Not on file Legal Sex Female 1:43 PM EDT Gender Identity Not on file Sexual Orientation Not on file documented as of this encounter Plan of Treatment Not on file documented as of this encounter Procedures Procedure Name Priority Date/Time Associated Diagnosis Comments US OB 14 + WEEKS SINGLE OR FIRST GESTATION Routine 02/01/2016 1:24 PM EDT Encounter for supervision of normal first in second trimester documented in this encounter Results * US ob 14 + weeks single or first gestation (02/01/2016 1:24 PM EDT) Anatomical Region Laterality Modality Body Ultrasound 02/01/2016 12:5 6 PM EDT Narrative 02/01/2016 2:42 PM EDT PAT NAME: SHANDA GARNICA MED REC#: [id number] DA: [id number] PAT GEND: F PAT TYPE: O EXAM IRINA: [id number] REF PHYS YESICA BARNARD Indication ======== anatomy survey. History ====== General History Previous surgery: Lap Previous Outcomes 2 Para 1 Other: D&C Method ====== Voluson E6, Transabdominal ultrasound examination. Suboptimal view: limited by position. Suboptimal view: limited by maternal body habitus. ========= Cortes . Number of fetuses: 1. Dating ====== GA by stated dating 20 w + 2 d FLAKITA by stated dating : 06/18/2016 Ultrasound examination on: 02/01/2016 GA by U/S based upon: AC, BPD, Femur, HC GA by U/S 20 w + 1 d FLAKITA by U/S: 06/19/2016 Assigned: Dating performed on 11/10/2015, based on the LMP Assigned GA 20 w + 2 d Assigned FLAKITA: 06/18/2016 General Evaluation Cardiac activity: present. FHR 141 bpm. movements: present. Presentation: transverse. Placenta: posterior. Umbilical cord: Cord vessels: 3 vessel cord. Amniotic fluid: Amount of AF: normal. Biometry Biometry BPD 46.1 mm 35% 20w 0d OFD 65.5 mm 90% 20w 5d HC 180.2 mm 49% 20w 3d AC 149.1 mm 40% 20w 1d Femur 32.6 mm 38% 20w 1d Cerebellum tr 21.3 mm 66% 20w 2d CM 5.4 mm 61% EFW 338 g Calculated by: Hadlock (KSL-BP-IC-FL) EFW (lb) 0 lb EFW (oz) 12 oz Cephalic index 0.70 1% HC / AC 1.21 80% FL / BPD 0.71 51% FL / AC 0.22 49% FHR 141 bpm Anatomy Cranium: Cranial vault appears intact with normal head shape. Brain: The intracranial contents appear normal including the cerebral ventricles, choroid plexus, CSP, cisterna magna, cerebellum 4-chamber view: suboptimal RVOT: suboptimal LVOT: suboptimal Diaphragm: Intact Stomach: Appears normal Kidneys: Appear normal Bladder: Appears normal Abdom. wall: Abdominal wall is intact Stomach: left-sided Gender: male Wants to know gender: yes Maternal Structures Uterus and adnexa appear normal Impression ========= No structural abnormalities are seen on today's scan. Anatomic survey is incomplete. Recommendation If needed clinically, the patient should return at a subsequent visit to complete the anatomic screening. Orderly: Fern Gallegos RDTN Physician: Eliezer Morris MD Electronically signed by: Eliezer Morris MD at: 14:42 Procedure Note Eliezer Morris MD - 02/01/2016 PAT NAME: SHANDA GARNICA MED REC#: [id number] DA: 1990 PAT GEND: F PAT TYPE: O EXAM IRNIA: [id number] REF PHYS YESICA BARNARD Indication ======== anatomy survey. History ====== General History Previous surgery:Lap Previous Outcomes Gravida2 Para1 Other:D&C Method ====== Voluson E6, Transabdominal ultrasound examination. Suboptimal view:limited by position. Suboptimal view: limited by maternal body habitus. ========= Cortes . Number of fetuses: 1. Dating ====== GA by stated dating 20 w + 2 d FLAKITA by stated dating :06/18/2016 Ultrasound examination on:02/01/2016 GA by U/S based upon:AC, BPD, Femur, HC GA by U/S20 w + 1 d FLAKITA by U/S:06/19/2016 Assigned:Dating performed on 11/10/2015, based on the LMP Assigned GA20 w + 2 d Assigned FLAKITA:06/18/2016 General Evaluation Cardiac activity: present. FHR 141 bpm. movements: present. Presentation: transverse. Placenta: posterior. Umbilical cord: Cord vessels: 3 vessel cord. Amniotic fluid: Amount of AF: normal. Biometry Biometry BPD46.1 mm35% 20w 0d OFD65.5 mm90% 20w 5d HC180.2 mm49% 20w 3d AC149.1 mm40% 20w 1d Femur32.6 mm38% 20w 1d Cerebellum tr21.3 mm66% 20w 2d CM5.4 mm61% WCN002 g Calculated by:Princess (EIN-AJ-VN-FL) EFW (lb)0 lb EFW (oz)12 oz Cephalic index0.701% HC / AC1.2180% FL / BPD0.7151% FL / AC0.2249% [id number] bpm Anatomy Cranium:Cranial vault appears intact with normal head shape. Brain: The intracranial contents appear normal including the cerebralventricles, choroid plexus, CSP, cisterna magna, cerebellum 4-chamber view:suboptimal RVOT:suboptimal LVOT:suboptimal Diaphragm:Intact Stomach:Appears normal Kidneys:Appear normal Bladder:Appears normal Abdom. wall:Abdominal wall is intact Stomach:left-sided Gender:male Wants to know gender:yes Maternal Structures Uterus and adnexa appear normal Impression ========= No structural abnormalities are seen on today's scan. Anatomic survey is incomplete. Recommendation If needed clinically, the patient should return at a subsequent visit tocomplete the anatomic screening. Orderly: Fern Gallegos RDMS Physician: Eliezer Morris MD Electronically signed by: Eliezer Morris MD at: 14:42 us Yesica Barnard MD [facility] [place] US ORDERABLES Final Result documented in this encounter Visit Diagnoses Diagnosis Encounter for supervision of normal first in second trimester documented in this encounter Care Teams Quality Technician Fiberglass Relationship Specialty Start Date End Date Provider, [place] [address] PCP - General 12/29/15 documented as of this encounter
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
--- OUTSIDE RECORDS SUMMARY | 2025-02-27 11:30 | XMS_ITS ---
Author Organization [facility] Address [address] [place] [phone] Care Team Providers Care Dining Room Cashier Name Role Phone Vamshi Cook Primary Care Provider [phone] Norma Olivares [phone] REASON FOR VISIT Cough, Sputum Production, 7 Weeks Encounters Encounter Location Date Provider Diagnosis [facility] [address] [place] [phone] 02/27/2025 Norma Olivares Plan Of Treatment No Information Progress Notes * DENI GARNICA MDOB:[birth year] (35 yo F)Acc No.mDOS:02/27/2025 Progress Notes Patient: DENI BASSETT Account Number:m Provider: CK Wellington :1990 A ge:35 Y S ex:Female Date:02/27/2025 Address:[address] [place], [place] [phone] Pcp:Vamshi Cook Subjective: * Chief Complaints: * 1 . Cough, Sputum Production, 7 Weeks . * Medical History: Objective: * Vitals: Assessment: Plan: * Treatment: * Images: Billing Information: * Visit Code: * Procedure Codes: * Electronic signature of CK Peterson on 03/01/2025 at 03:09 AM EDT Sign off status: Pending * Provider: CK Wellington Date: 0 02/27/2025 Generated for Printi ng/Faxing/eTransmitting on: 0 03/01/2025 03:09 AM EDT
--- OUTSIDE RECORDS SUMMARY | 2025-03-01 03:09 | XMS_ITS | Encounter Summary ---
[facility] Address [address] [place] [phone] Care Team Providers Care Fudge Candy Maker Name Role Phone Provider, No Known Primary Care Provider [phone] Encounter Details Date Type Department Care Team (Late st Contact Info) Description 02/23/2016 Telephone [facility] OBGYN [address] [facility] [address] [place] [address] Jesus Carlson MD [address] [facility] [address] [place] [address] Social History Tobacco Use Types Packs/Day Years [...] on filedocumented in this encounter Care Teams Fudge Candy Maker Relationship Specialty Start Date End Date Provider, No Known [place] [id number] PCP - General 12/29/15 documented as of this encounter
--- OUTSIDE RECORDS SUMMARY | 2025-03-01 03:09 | XMS_ITS | Clinical Summary ---
Author Organization [facility] Address [address] [place] [address] Care Team Providers Care Frog Or Oyster Farmworker Name Role Phone Provider, No Known Primary Care Provider [phone] Allergies No known active allergies Medications sertraline [...] patient's age to complete this topic Insurance [address] [address] [address] PPO Advance Directives * Full Code (Latest Code Status on File) Date Activated Date Inactivated Comments 02/25/2016 12:03 PM 02/26/2016 4:01 PM Care Teams Frog Or Oyster Farmworker Relationship Specialty Start Date End Date Provider, [place] [address] PCP - General 12/29/15
--- OUTSIDE RECORDS SUMMARY | 2025-03-01 03:09 | XMS_ITS | Clinical Summary ---
Author Organization Healthcare Address [address] [place] [address] Care Team Providers Care Cook Specialty Name Role Phone Pcp, No Primary Care [...] 07/10/2016 [facility]-Cervical Cancer Screening 02/06/2022 [facility]-HPV/Cotest 02/06/2022 07/10/2016, 07/10/2016 [id number] Vaccine ( - 2023- season) 2024 [facility]-Influenza Vaccine (#1) [...] Narrative SUNQUEST - 07/26/2016 9:59 AM EST [facility] MR #: [id number] [facility] [place]DA [place] [id number] 1990 (Age: 26) FW Collect Date: 07/10/2016 00:00 Receipt Date: 07/11/2016 09:48 Page 1 DEPARTMENT OF PATHOLOGY AND LABORATORY MEDICINE CYTOPATHOLOGY REPORT Email: [email or web address] [phone] ATTENDING MD/Practitioner: Kimberley Caldera MD Service: OBE Location: [facility] Reported: 07/26/2016 09:59 Collected: 07/10/2016 00:00 INTERPRETATION A. THIN PREP (CERVICAL/VAGINAL): NEGATIVE FOR INTRAEPITHELIAL LESION OR MALIGNANCY. SATISFACTORY FOR EVALUATION; ENDOCERVICAL/ TRANSFORMATION ZONE COMPONENT PRESENT. Slide scanned and imaged by [employer] ThinPrep Imaging System with manual review of all selected vallecillo. Please correlate with HPV results (see microbiology report, or call [phone]). Please see ([email or web address]) for suggested follow up. [...] results is suggested (please call Microbiology at [phone] for results). CLINICAL INFORMATION: Menstrual History: : First Trimester Date of Last Menstrual Period: 04/23/2016 Other Clinical Conditions: Abnormal pap results elsewhere: h/o abnormal pap smears, had colpo, LEEP with normal repeat paps Date not provided Clinical information indicates patient has high risk factor(s). HPV testing requested. SPECIMEN DESCRIPTION: A: THIN PREP (CERVICAL/VAGINAL) THIN PREP PROCESS CELLULAR ENHANCEMENT ICD: F: A; DX IMAGE 11824 SNOMED CODES: A; [id number] [id number] In cases where a pathologist has signed out the report, the service has been rendered in part by a resident. The signing pathologist has performed and is responsible for the reported pathologic evaluation. Beulah Caldera MD LAB PATHOLOGY ORDERABLES Final Result SUNQUEST * HIV 1 & 2 Antibody/Antigen Screen (06/26/2016 9:00 AM EST) HIV 1 Result NONREACTIVE Screening for HIV 1 and 2 antibodies is NONREACTIVE. No confirmatory testing is required. SUNQUEST 06/26/2016 9:00 AM EST 06/26/2016 12:30 PM EST Beulah Caldera MD LAB BLOOD ORDERABLES Final Res ult SUNQUEST from Last 3 Months or Most Recently Relevant to Health Maintenance Insurance Care Teams Cook Specialty Relationship Specialty Start Date End Date Pcp, No [address] [place] [address] PCP - General Family Medicine 06/07/22
--- OUTSIDE RECORDS SUMMARY | 2025-03-01 03:09 | XMS_ITS | Encounter Summary ---
[facility] Organization [facility] Address [address] [place] [address] Care Team Providers Care Leather Toggler Name Role Phone Provider, No Known Primary Care Provider [phone] Encounter Details Date Type Department Care Team (Late st Contact Info) Description 02/21/2016 Telephone [facility] O[facility]YN [address] [facility] [address] [place] [address] Jesus Carlson MD [address] [facility] [address] [place] [address] Social History Tobacco Use Types Packs/Day Years [...] on filedocumented in this encounter Care Teams Leather Toggler Relationship Specialty Start Date End Date Provider, No Known [place], [place] [address] PCP - General 12/29/15 documented as of this encounter
--- OUTSIDE RECORDS SUMMARY | 2025-03-01 03:10 | XMS_ITS | Clinical Summary ---
Author Organization [facility] Address [address] [facility], [address] [place] [address] Care Team Providers Care Sfdc Developer Name Role Phone System, Referring Not In [...] of Treatment Not on file Care Teams Sfdc Developer Relationship Specialty Start Date End Date System, Referring Not In PCP - General 03/05/16
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
[2025-03-01 03:12] VITALS: BP 132/87; PULSE 92; O2SAT 99
[2025-03-01 03:15] VITALS: BP 138/82; PULSE 93; O2SAT 99
[2025-03-01 03:17] VITALS: BP 132/87; PULSE 91; RESP 16; TEMP 36.6; O2SAT 99; BMI 34.5
--- NOTE | 2025-03-01 03:18 | HMH.EDGENADL ---
Discharge Plan Disposition Patient Disposition: Home, Self-Care Condition: Good Prescriptions Prescriptions: No Action Classic 28 mg iron- 800 mcg tablet 1 tab PO DAILY Qty: 30 3RF Referrals Follow up/Referrals: Twyla Hensley MD [Primary Care Provider, Medical] - See instructions Activity Restrictions/Add. Instructions Additional Instructions/Restrictions: You were evaluated in the ER and are believed to be appropriate for discharge at this time. Continue your . Follow-up the results of the viral swab in your patient portal. Discuss lcnk-riw-nczwovz antihistamine or decongestant with OB if needed for symptoms. Follow-up with your primary care doctor for reevaluation. Return to the ER with any new, worsening, or otherwise concerning symptoms including symptoms of bacterial infection like pneumonia or sinus infection as discussed. Clinical Impressions Clinical Impression: Nasal congestion, Cough Print Language Print Language: Citizen Of [place] Discharge ED Provider: Mita Quintana General Adult HPI General Chief complaint: Upper Respiratory Infection Stated complaint: sinus congestion, cough, green phlem Time Seen by Provider: 03/01/25 03:06 History of Present Illness HPI narrative: Otherwise healthy 35-year-old female G3, P1 at 7-1/2 weeks presents to the ER with cough and congestion concern for possible sinus infection. Patient reports 3 to 4 days of symptoms. 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 She was concerned that she was coughing up green phlegm and has pressure in her sinuses. She has not had fevers, no tenderness over the sinuses, no numbness, tingling, or weakness. She has not had any dysuria or hematuria, no vaginal bleeding or discharge, no abdominal pain or pelvic pain. She has no concerns about her at this time and states she is following closely with OB. She reports no shortness of breath, no vomiting or diarrhea. No chest pain or pressure. No other complaints or concerns. Related Data Previous Rx's ?Medication ?Instructions ?Recorded vits no.126-ferrous fum 1 tab PO DAILY #30 tabs 02/06/25 28 mg iron-folic acid 800 mcg tablet (Classic ) Allergies Allergy/AdvReac Type Severity Reaction Status Date / Time No Known Allergies Allergy Verified 02/04/25 10:39 [facility] Disclaimer: The information contained in this section may have been updated after the patient was seen, as this information can be updated by other users. Medical History Hx LEEP (loop electrosurgical excision procedure), cervix, Generalized anxiety disorder Attention deficit disorder (ADD) in adult Patient given sample box of Etseban, patient to follow-up in 2 weeks to see if this is helping. 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 Other Medical History Have you received the Pneumonia Vaccine: No ROS Obtained: Yes Systems reviewed as appropriate & no additional complaints except as documented Per HPI Physical Exam General General appearance: alert and in no apparent distress Head Head exam: atraumatic and normocephalic Eye Eye exam: Present PERRL and EOMI ENT ENT exam: Present normal oropharynx, mucous membranes moist, TM's normal bilaterally and other (No swelling, redness, or tenderness over the frontal or maxillary sinuses) Neck Neck exam: Present normal inspection and full ROM; Absent lymphadenopathy Chest Chest inspection: Present symmetric chest wall rise Respiratory Respiratory exam: Present normal lung sounds bilaterally; Absent respiratory distress, wheezes or stridor Cardiovascular Cardiovascular exam: Present regular rate and normal rhythm Abdominal Exam Abdominal exam: Present soft; Absent distention or tenderness Neurological Exam Neurological exam: Present alert, oriented X3 and normal gait Psychiatric Psychiatric exam: Present normal affect and normal mood Skin Skin exam: Present warm and dry Medical Decision Making Medical Records Medical records reviewed: Yes I reviewed the patient's medical records. Screening: Per USPSTF and CDC recommendations, given the prevalence of disease in our region, it is our hospital?s policy to screen for HIV and viral Hepatitis for all patients aged 18 and over and those with ongoing risk factors. Devyn Inquiry Pt receiving controlled substance: No Vital Signs: 03/01/25 03:17 03/01/25 03:20 Temperature 97.9 F Temperature Source Temporal Artery Scan Pulse Rate [Right Radial] 91 H Respiratory Rate 16 Blood Pressure [Right Arm] 132/87 Blood Pressure Mean [Right Arm] 102 Blood Pressure Source [Right Arm] Automatic Cuff Blood Pressure Position [Right Arm] Supine 02 Sat by Pulse Oximetry 99 99 Oxygen Delivery Method Room Air Room Air Orders (Tests/Meds): ORDERS Category Date Time Status Mini Respiratory Panel Stat Lab 03/01/25 03:16 Ordered Medical Decision Narrative: In summary, this 35-year-old female G4, P1 7-1/2 weeks presents to the emergency department today with congestion and cough for 4 days. On initial evaluation patient is hemodynamically stable, afebrile, overall well-appearing, benign cardiopulmonary exam, lungs clear bilaterally with no adventitious sounds, saturating well on room air, normal tympanic membranes, Steer oropharynx normal with no tonsillomegaly or exudates, no lymphadenopathy, no tenderness, swelling, or erythema over the frontal or maxillary sinuses. I highly suspect viral syndrome in this patient. Additional considerations were sinus infection, pneumonia, bronchitis. She has no evidence of pneumonia or sinus infection with no fevers or adventitious sounds, clear breath sounds bilaterally, no chest pain, she has no evidence of sinus infection with no fevers, no erythema or tenderness over the sinuses. She has also only had 4 days of symptoms which makes bacterial infection extremely unlikely. I did consider bronchitis but patient is very concerned about using minimal medications during and at this time I do not believe antibiotics are indicated. Most likely is viral syndrome. She would like to be swabbed which I believe is reasonable. I discussed with her that typically it is recommended in to take Tamiflu if positive for influenza, she already declined this stating regardless of if she has flu or not she does not want to take this medication since it only slightly reduces her duration of symptoms and she wants to avoid most medications in if possible. I understand this and believe that is a reasonable approach since she is only having mild symptoms at this time even if it was influenza which I suspect is unlikely. There has been a slight increase locally of COVID so I suspect this is more likely or other viral syndrome. Mini respiratory panel was sent to lab. Since it will not change manager at this time, patient was discharged with instructions to follow-up the results in the patient portal. She is comfortable with this plan. She was given instructions on continued symptomatic monitoring and management with conservative measures such as warm tea with honey, humidifier, VapoRub, instructions for follow-up, and strict return precautions for the ER including if she were to develop symptoms of bacterial infection which we discussed. She indicated understanding and the patient was discharged in stable condition Critical Care Critical Care Time Critical Care Time: No
[2025-03-01 03:20] VITALS: O2SAT 99
[2025-03-01 03:24] VITALS: BP 132/87; PULSE 91; RESP 16; TEMP 36.6; O2SAT 99
[2025-03-01 03:29] LABS: Coronavirus 19, PCR Not Detected (NotDetected); Influenza A, PCR Not Detected (NotDetected); Influenza B, PCR Not Detected (NotDetected)
== END 2025-03-01 03:28 | disposition home or self-care (01) ==
PROVIDERS: Emergency Provider Emergency Medicine; PCP Family Medicine
DX: O99.511 Diseases of the respiratory system complicating pregnancy, first trimester (principal); R09.81 Nasal congestion; Z3A.01 Less than 8 weeks gestation of pregnancy
CPT/HCPCS: 87631; 99282

== ENCOUNTER 2025-03-03 09:41 | Outpatient (CLI) | payer OTHER, SELFPAY ==
--- OUTSIDE RECORDS SUMMARY | 2016-02-01 12:33 | XMS_ITS | Encounter Summary ---
[facility] Address [address] [place] [id number] Care Team Providers Care Figure Skater Name Role Phone Provider, No Known Primary Care Provider [phone] Encounter Details Date Type Department Care Team (Latest Contact Info) Description 02/01/2016 12:33 PM EDT Hospital Encounter [facility] [phone] Encounter for supervision of normal first in [...] EDT PAT NAME: SHANDA GARNICA MED REC#: [id number] DA: [id number] PAT GEND: F PAT TYPE: O EXAM IRINA: [id number] REF PHYS YESICA BARNARD Indication ======== anatomy [...] 61% EFW 338 g Calculated by: Hadlock (XYV-CB-AH-FL) EFW (lb) 0 lb EFW (oz) 12 [...] subsequent visit to complete the anatomic screening. Medical Technologist Prn: Fern Gallegos RDMO Physician: Eliezer Morris MD Electronically signed by: Eliezer Morris MD at: 14:42 Procedure Note Eliezer Morris MD - 02/01/2016 PAT NAME: SHANDA GARNICA MED REC#: [id number] DA: 1990 PAT GEND: F PAT TYPE: O EXAM IRINA: [id number] REF PHYS YESICA BARNARD Indication ======== anatomy [...] Cerebellum tr21.3 mm66% 20w 2d CM5.4 mm61% FGH124 g Calculated by:Princess (HFU-MV-DS-FL) EFW (lb)0 lb EFW (oz)12 oz Cephalic index0.701% HC / AC1.2180% FL / BPD0.7151% FL / AC0.2249% NFS648 bpm Anatomy Cranium:Cranial vault appears intact with [...] a subsequent visit tocomplete the anatomic screening. Medical Technologist Prn: Fern Gallegos RDMS Physician: Eliezer Morris MD Electronically signed by: Eliezer Morris MD at: 14:42 us Yesica Barnard MD [facility] [place] US ORDERABLES Final Result documented in this encounter Visit Diagnoses Diagnosis Encounter for supervision of normal first in second trimester documented in this encounter Care Teams Figure Skater Relationship Specialty Start Date End Date Provider, [place] [address] PCP - General 12/29/15 documented as of this encounter
--- OUTSIDE RECORDS SUMMARY | 2025-03-03 09:45 | XMS_ITS | Encounter Summary ---
Author [facility] Address [address] [place] [id number] Care Team Providers Care Delivery Stock Clerk Name Role Phone Provider, No Known Primary Care Provider [phone] Encounter Details Date Type Department Care Team (Late st Contact Info) Description 02/23/2016 Telephone [facility] OBGYN [address] [facility] [address] [place] [address] Jesus Carlson MD [address] [facility] [address] [place] [address] Social History Tobacco Use Types Packs/Day Years [...] on filedocumented in this encounter Care Teams Delivery Stock Clerk Relationship Specialty Start Date End Date Provider, No Known [place] [id number] PCP - General 12/29/15 documented as of this encounter
--- OUTSIDE RECORDS SUMMARY | 2025-03-03 09:45 | XMS_ITS | Clinical Summary ---
Author Organization [facility] Address [address] [place] [address] Care Team Providers Care Electronic Coils Supervisor Name Role Phone Pcp, No Primary Care [...] of 2 - 13+ 2-dose series) 02/06/2005 [facility]- SDOH Screenings 02/06/2010 [facility]-Adult SDOH Screenings 02/06/2010 [facility]-Hepatitis B Vaccines (1 of 3 - 19+ 3-dose series) 02/06/2011 HPV Vaccines (1 - 3-dose SCD M series) 02/06/2019 [facility]-Pap Smear 07/10/2019 07/10/2016 [facility]-Cervical Cancer Screening 02/06/2022 [facility]-HPV/Cotest 02/06/2022 07/10/2016, 07/10/2016 [id number] Vaccine ( - season) 2024 [facility]-Influenza Vaccine (#1) 2025 04/03/2022 [...] Narrative SUNQUEST - 07/26/2016 9:59 AM EST [facility] MR #: [id number] [facility] SHANDA [address]ARNICA [place], [place] [address] 1990 (Age: 26) FW Collect Date: 07/10/2016 00:00 Receipt Date: 07/11/2016 09:48 Page 1 DEPARTMENT OF PATHOLOGY AND LABORATORY MEDICINE CYTOPATHOLOGY REPORT Email: [email or web address] [phone] ATTENDING MD/Practitioner: Kimberley Caldera MD Service: OBE Location: [facility] Reported: 07/26/2016 09:59 Collected: 07/10/2016 00:00 INTERPRETATION A. THIN PREP (CERVICAL/VAGINAL): NEGATIVE FOR INTRAEPITHELIAL LESION OR MALIGNANCY. SATISFACTORY FOR EVALUATION; ENDOCERVICAL/ TRANSFORMATION ZONE COMPONENT PRESENT. Slide scanned and imaged by [employer] ThinPrep Imaging System with manual review of all selected vallecillo. Please correlate with HPV results (see microbiology report, or call [phone]). Please see ([email or web address]) for suggested follow up. [...] results is suggested (please call Microbiology at [phone] for results). CLINICAL INFORMATION: Menstrual History: : First Trimester Date of Last Menstrual Period: 04/23/2016 Other Clinical Conditions: Abnormal pap results elsewhere: h/o abnormal pap smears, had colpo, LEEP with normal repeat paps Date not provided Clinical information indicates patient has high risk factor(s). HPV testing requested. SPECIMEN DESCRIPTION: A: THIN PREP (CERVICAL/VAGINAL) THIN PREP PROCESS CELLULAR ENHANCEMENT ICD: F: A; DX IMAGE 79061 SNOMED CODES: A; [id number] [id number] [id number] In cases where a pathologist has signed [...] Most Recently Relevant to Health Maintenance [place] [address] [address] [employer] Care Teams Electronic Coils Supervisor Relationship Specialty Start Date End Date Pcp, No [address] [place] [address] PCP - General Family Medicine 06/07/22
--- OUTSIDE RECORDS SUMMARY | 2025-03-03 09:45 | XMS_ITS | Encounter Summary ---
[facility] Address [address] [place] [address] Care Team Providers Care Hat Block Maker Name Role Phone Provider, No Known Primary Care Provider [phone] Encounter Details Date Type Department Care Team (Late st Contact Info) Description 02/21/2016 Telephone [facility] OBGYN [address] [facility] [address] [place] [address] Jesus Carlson MD [address] [facility] [address] [place] [address] Social History Tobacco Use Types Packs/Day Years [...] on filedocumented in this encounter Care Teams Hat Block Maker Relationship Specialty Start Date End Date Provider, No Known [place], [place] [id number] PCP - General 12/29/15 documented as of this encounter
--- OUTSIDE RECORDS SUMMARY | 2025-03-03 09:45 | XMS_ITS | Clinical Summary ---
Author Organization [facility] Address [address] [place] [id number] Care Team Providers Care District Court Justice Name Role Phone Provider, No Known Primary Care Provider [phone] Allergies No known active allergies Medications sertraline [...] patient's age to complete this topic [place] [address] PPO Advance Directives * Full Code (Latest Code Status on File) Date Activated Date Inactivated Comments 02/25/2016 12:03 PM 02/26/2016 4:[address] Relationship Specialty Start Date End Date Provider, [place] [address] PCP - General 12/29/15
--- OUTSIDE RECORDS SUMMARY | 2025-03-03 09:46 | XMS_ITS | Clinical Summary ---
Author Organization [facility] Address [address] [facility], [address] [place] [address] Care Team Providers Care Bereavement Program Coordinator Name Role Phone System, Referring Not In [...] of Treatment Not on file Care Teams Bereavement Program Coordinator Relationship Specialty Start Date End Date System, Referring Not In PCP - General 03/05/16
--- NOTE | 2025-03-03 10:00 | US_ITS ---
PROCEDURE: US OB TRANSVAGINAL CLINICAL INDICATION: viability COMPARISON: US US TRANSVAGINAL from 02/04/2025 US US OB <= 14 WEEKS FETUS from 02/20/2025 FINDINGS: Transvaginal sonographic images of the pelvis were obtained. From her last menstrual period she is 7weeks 6days. An intrauterine gestational sac is present with a pole with a crown-rump length of 0.37cm the gestational sac appears to be collapsing. There is an inferior subchorionic hemorrhage. This correlates to a gestational age of 6weeks 1day. heart tones are absent today. Yolk sac is noted. The yolk sac measures 4.8mm. The right ovary is seen and appears normal. The left ovary is seen and appears normal. There is no fluid in the cul-de-sac. IMPRESSION: 1. Nonviable embryo within the uterine cavity. There is no Doppler flow to the embryo. There has been no growth of the embryo since her last ultrasound 12 days ago. No heart rate activity is seen today. 2. The gestational sac appears to be collapsing and there is an inferior subchorionic hemorrhage. 3. Both ovaries are seen and appear normal. 4. No fluid in the cul-de-sac. 5. Dr. Sandoval was informed. Dictated by: Chinmay Pittman MD 03/03/2025 11:51 Chinmay Pittman MD in OV 03/03/2025 11:51
[2025-03-04 21:09] LABS: Neisseria gonorrhoeae, NAA Negative (Negative)
== END 2025-03-03 23:59 | disposition home or self-care (01) ==
LOC: RAD 09:42
PROVIDERS: PCP Family Medicine; Visit Provider Obstetrics & Gynecology
DX: O46.8X1 Other antepartum hemorrhage, first trimester (principal); O99.211 Obesity complicating pregnancy, first trimester; E66.9 Obesity, unspecified; Z32.01 Encounter for pregnancy test, result positive; Z3A.01 Less than 8 weeks gestation of pregnancy
CPT/HCPCS: 76817; 87491; 87591

== ENCOUNTER 2025-03-10 08:30 | Outpatient (CLI) | payer OTHER, SELFPAY ==
--- OUTSIDE RECORDS SUMMARY | 2016-02-01 12:33 | XMS_ITS | Encounter Summary ---
[facility] Organization [facility] Address [address] [place] [address] Care Team Providers Care Transport Company Manager Name Role Phone Provider, No Known Primary Care Provider [phone] Encounter Details Date Type Department Care Team (Latest Contact Info) Description 02/01/2016 12:33 PM EDT Hospital Encounter [facility] [phone] Encounter for supervision of normal first in [...] EDT PAT NAME: SHANDA GARNICA MED REC#: [id number] DA: [id number] PAT GEND: F PAT TYPE: O EXAM IRINA: [id number] REF PHYS YESICA BARNARD Indication ======== anatomy [...] 61% EFW 338 g Calculated by: Hadlock (FPP-QU-SQ-FL) EFW (lb) 0 lb EFW (oz) 12 [...] subsequent visit to complete the anatomic screening. Web Site Developer: Fern Gallegos RDAL Physician: Eliezer Morris MD Electronically signed by: Eliezer Morris MD at: 14:42 Procedure Note Eliezer Morris MD - 02/01/2016 PAT NAME: SHANDA GARNICA MED REC#: [id number] DA: 1990 PAT GEND: F PAT TYPE: O EXAM IRINA: [id number] REF PHYS YESICA BARNARD Indication ======== anatomy [...] Cerebellum tr21.3 mm66% 20w 2d CM5.4 mm61% ZSL230 g Calculated by:Princess (QSW-OJ-XD-FL) EFW (lb)0 lb EFW (oz)12 oz Cephalic index0.701% HC / AC1.2180% FL / BPD0.7151% FL / AC0.2249% DNK509 bpm Anatomy Cranium:Cranial vault appears intact with [...] a subsequent visit tocomplete the anatomic screening. Web Site Developer: Fern Gallegos RDMS Physician: Eliezer Morris MD Electronically signed by: Eliezer Morris MD at: 14:42 us Yesica Barnard MD [facility] [place]LES Final Result documented in this encounter Visit Diagnoses Diagnosis Encounter for supervision of normal first in second trimester documented in this encounter Care Teams Transport Company Manager Relationship Specialty Start Date End Date Provider, [place] [address] PCP - General 12/29/15 documented as of this encounter
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
--- OUTSIDE RECORDS SUMMARY | 2025-02-27 11:30 | XMS_ITS ---
[facility] Address [address] [place] [phone] Care Team Providers Care Business Education Instructor Name Role Phone Vamshi Cook Primary Care Provider [phone] Norma Olivares [phone] REASON FOR VISIT Cough, Sputum Production, 7 Weeks Encounters Encounter Location Date Provider Diagnosis [facility] [address] [place] [phone] 02/27/2025 Norma Olivares Plan Of Treatment No Information Progress Notes * DENI GARNICA MDOB:[birth year] (35 yo F)Acc No.mDOS:02/27/2025 Progress Notes Patient: DENI BASSETT Account Number:m Provider: CK Wellington :1990 A ge:35 Y S ex:Female Date:02/27/2025 Address:[address] [place], [place] [id number] Pcp:Vamshi Cook Subjective: * Chief Complaints: * 1 . Cough, Sputum Production, 7 Weeks . * Medical History: Objective: * Vitals: Assessment: Plan: * Treatment: * Images: Billing Information: * Visit Code: * Procedure Codes: * Electronic signature of CK Peterson on 03/10/2025 at 08:55 AM EDT Sign off status: Pending * Provider: CK Wellington Date: 0 02/27/2025 Generated for Printi ng/Faxing/eTransmitting on: 0 03/10/2025 08:55 AM EDT
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
--- NOTE | 2025-03-10 08:30 | US_ITS ---
PROCEDURE: US TRANSVAGINAL CLINICAL INDICATION: Repeat for miscarriage COMPARISON: US US OB <= 14 WEEKS FETUS from 02/20/2025 US US OB TRANSVAGINAL from 03/03/2025 FINDINGS: Transvaginal sonographic images of the pelvis were obtained. From her last menstrual period she is 8weeks 6days. An intrauterine gestational sac is present with a pole with a crown-rump length of 0.3cm This correlates to a gestational age of 6weeks 0 days. heart tones are absent. Doppler flow is absent from the embryo. Yolk sac is noted. The yolk sac measures 4.2 mm. A subchorionic hemorrhage continues to be seen. The right ovary is seen and appears normal. There is a 1.8 cm corpus luteum within the right ovary. The left ovary is seen and appears normal. There is no fluid in the cul-de-sac. IMPRESSION: 1. Nonviable embryo within the uterine cavity. There is no heart rate activity and there has been no growth of the embryo since February 20, 2025. 2. There continues to be a small subchorionic hemorrhage. 3. Both ovaries are seen and appear normal. There is a corpus luteum in the right ovary. 4. No fluid in the cul-de-sac. Dictated by: Chinmay Pittman MD 03/11/2025 06:04 Chinmay Pittman MD in OV 03/11/2025 06:04
--- OUTSIDE RECORDS SUMMARY | 2025-03-10 08:56 | XMS_ITS | Encounter Summary ---
[facility] Address [address] [place] [id number] Care Team Providers Care Shirt Folding Machine Operator Name Role Phone Provider, No Known Primary Care Provider [phone] Encounter Details Date Type Department Care Team (Late st Contact Info) Description 02/23/2016 Telephone [facility] OBGYN [address] [facility] [address] [place] [address] Jesus Carlson MD [address] [facility] 101 [place] [address] Social History Tobacco Use Types Packs/Day Years [...] on filedocumented in this encounter Care Teams Shirt Folding Machine Operator Relationship Specialty Start Date End Date Provider, No Known [place] [id number] PCP - General 12/29/15 documented as of this encounter
--- OUTSIDE RECORDS SUMMARY | 2025-03-10 08:56 | XMS_ITS | Clinical Summary ---
Author Organization [facility] Address [address] [place] [id number] Care Team Providers Care Production Material Handler Name Role Phone Provider, No Known Primary Care Provider [phone] Allergies No known active allergies Medications sertraline [...] patient's age to complete this topic [place] [address] [place] [address] PPO Advance Directives * Full Code (Latest Code Status on File) Date Activated Date Inactivated Comments 02/25/2016 12:03 PM 02/26/2016 4:01 PM Care Teams Production Material Handler Relationship Specialty Start Date End Date Provider, [place] [address] PCP - General 12/29/15
--- OUTSIDE RECORDS SUMMARY | 2025-03-10 08:56 | XMS_ITS | Clinical Summary ---
Author Organization [facility] Address [address] [place] [address] Care Team Providers Care Kiln Pusher Name Role Phone Pcp, No Primary Care [...] Cancer Screening 02/06/2022 [facility]-HPV/Cotest 02/06/2022 07/10/2016, 07/10/2016 [id number] Vaccine ( - season) 2024 [facility]-Influenza Vaccine [...] Narrative SUNQUEST - 07/26/2016 9:59 AM EST [facility] MR #: [id number] [facility] SHANDA [address] [place], [place] [address] 1990 (Age: 26) FW Collect Date: 07/10/2016 00:00 Receipt Date: 07/11/2016 09:48 Page 1 DEPARTMENT OF PATHOLOGY AND LABORATORY MEDICINE CYTOPATHOLOGY REPORT Email: [email or web address] [id number] ATTENDING MD/Practitioner: Kimberley Caldera MD Service: OBE Location: [facility] Reported: 07/26/2016 09:59 Collected: 07/10/2016 00:00 INTERPRETATION A. THIN PREP (CERVICAL/VAGINAL): NEGATIVE FOR INTRAEPITHELIAL LESION OR MALIGNANCY. SATISFACTORY FOR EVALUATION; ENDOCERVICAL/ TRANSFORMATION ZONE COMPONENT PRESENT. Slide scanned and imaged by [employer] ThinPrep Imaging System with manual review of all selected vallecillo. Please correlate with HPV results (see microbiology report, or call [phone]). Please see ([email or web address]) for suggested follow up. [...] results is suggested (please call Microbiology at [phone] for results). CLINICAL INFORMATION: Menstrual History: : First Trimester Date of Last Menstrual Period: 04/23/2016 Other Clinical Conditions: Abnormal pap results elsewhere: h/o abnormal pap smears, had colpo, LEEP with normal repeat paps Date not provided Clinical information indicates patient has high risk factor(s). HPV testing requested. SPECIMEN DESCRIPTION: A: THIN PREP (CERVICAL/VAGINAL) THIN PREP PROCESS CELLULAR ENHANCEMENT ICD: F: A; DX IMAGE 76268 SNOMED CODES: A; [id number] [id number] M-33006 In cases where a pathologist has signed [...] Most Recently Relevant to Health Maintenance [place] [address] [employer] Care Teams Kiln Pusher Relationship Specialty Start Date End Date Pcp, No [address] [place] [address] PCP - General Family Medicine 06/07/22
--- OUTSIDE RECORDS SUMMARY | 2025-03-10 08:56 | XMS_ITS | Encounter Summary ---
[facility] Address [address] [place] [address] Care Team Providers Care Hand Bender Name Role Phone Provider, No Known Primary Care Provider [phone] Encounter Details Date Type Department Care Team (Late st Contact Info) Description 02/21/2016 Telephone [facility] OBGYN [address] [facility] [address] [place] [address] Jesus Carlson MD [address] [facility] 101 [place] [address] Social History Tobacco Use Types Packs/Day Years [...] on filedocumented in this encounter Care Teams Hand Bender Relationship Specialty Start Date End Date Provider, No Known [place], [place] [id number] PCP - General 12/29/15 documented as of this encounter
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
--- OUTSIDE RECORDS SUMMARY | 2025-03-10 08:56 | XMS_ITS | Clinical Summary ---
Author Organization [facility] Address [address] [facility], [address] [place] [address] Care Team Providers Care Miniature Model Maker Name Role Phone System, Referring Not In [...] of Treatment Not on file Care Teams Miniature Model Maker Relationship Specialty Start Date End Date System, Referring Not In PCP - General 03/05/16
== END 2025-03-10 23:59 | disposition home or self-care (01) ==
LOC: RAD 08:30
PROVIDERS: PCP Family Medicine; Visit Provider Obstetrics & Gynecology
DX: O03.9 Complete or unspecified spontaneous abortion without complication (principal); N83.11 Corpus luteum cyst of right ovary; Z3A.01 Less than 8 weeks gestation of pregnancy
CPT/HCPCS: 76830

== ENCOUNTER 2025-03-19 14:21 | Outpatient (CLI) | payer OTHER, SELFPAY ==
--- OUTSIDE RECORDS SUMMARY | 2016-02-01 12:33 | XMS_ITS | Encounter Summary ---
Author Organization [facility] Address [address] [place] [address] Care Team Providers Care Metal Sash Setter Name Role Phone Provider, No Known Primary Care Provider [phone] Encounter Details Date Type Department Care Team (Latest Contact Info) Description 02/01/2016 12:33 PM EDT Hospital En[facility] [phone] Encounter for supervision of normal first in [...] EDT PAT NAME: SHANDA GARNICA MED REC#: [id number] DA: [id number] PAT GEND: F PAT TYPE: O EXAM IRINA: [id number] REF PHYS YESICA BARNARD Indication ======== anatomy [...] 61% EFW 338 g Calculated by: Hadlock (YKI-TA-RT-FL) EFW (lb) 0 lb EFW (oz) 12 [...] subsequent visit to complete the anatomic screening. Flooring Professional: Fern Gallegos RDCA Physician: Eliezer Morris MD Electronically signed by: Eliezer Morris MD at: 14:42 Procedure Note Eliezer Morris MD - 02/01/2016 PAT NAME: SHANDA GARNICA MED REC#: [id number] DA: 1990 PAT GEND: F PAT TYPE: O EXAM IRINA: [id number] REF PHYS YESICA BARNARD Indication ======== anatomy [...] Cerebellum tr21.3 mm66% 20w 2d CM5.4 mm61% [id number] g Calculated by:Princess (BEB-JU-ZY-FL) EFW (lb)0 lb EFW (oz)12 oz Cephalic index0.701% HC / AC1.2180% FL / BPD0.7151% FL / AC0.2249% XQZ951 bpm Anatomy Cranium:Cranial vault appears intact with [...] a subsequent visit tocomplete the anatomic screening. Flooring Professional: Fern Gallegos RDMS Physician: Eliezer Morris MD Electronically signed by: Eliezer Morris MD at: 14:42 us Yesica Barnard MD [facility] Final Result documented in this encounter Visit Diagnoses Diagnosis Encounter for supervision of normal first in second trimester documented in this encounter Care Teams Metal Sash Setter Relationship Specialty Start Date End Date Provider, [place] [address] PCP - General 12/29/15 documented as of this encounter
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
--- OUTSIDE RECORDS SUMMARY | 2025-02-27 11:30 | XMS_ITS ---
Author Organization [facility] Address [address] [place] [phone] Care Team Providers Care General Lot Attendant Name Role Phone Vamshi Cook Primary Care Provider Norma Olivares [phone] REASON FOR VISIT Cough, Sputum Production, 7 Weeks Encounters Encounter Location Date Provider Diagnosis [facility] [address] [place] [phone] 02/27/2025 Norma Olivares Plan Of Treatment No Information Progress Notes * DENI GARNICA MDOB:[birth year] (35 yo F)Acc No.mDOS:02/27/2025 Progress Notes Patient: DENI BASSETT Account Number:m Provider: CK Wellington :1990 A ge:35 Y S ex:Female Date:02/27/2025 Address:[address] [place], [place] [phone] Pcp:Vamshi Cook Subjective: * Chief Complaints: * 1 . Cough, Sputum Production, 7 Weeks . * Medical History: Objective: * Vitals: Assessment: Plan: * Treatment: * Images: Billing Information: * Visit Code: * Procedure Codes: * Electronic signature of CK Peterson on 03/19/2025 at 02:24 PM EDT Sign off status: Pending * Provider: CK Wellington Date: 0 02/27/2025 Generated for Printi ng/Faxing/eTransmitting on: 0 03/19/2025 02:24 PM EDT
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
--- OUTSIDE RECORDS SUMMARY | 2025-03-19 14:24 | XMS_ITS | Clinical Summary ---
Author Organization Healthcare Address [address] [place] [address] Care Team Providers Care Spice Grinder Name Role Phone Pcp, No Primary Care [...] Cancer Screening 02/06/2022 UKY-HPV/Cotest 02/06/2022 07/10/2016, 07/10/2016 [id number]-71 Vaccine ( - season) 2024 UKY-Influenza Vaccine [...] Narrative SUNQUEST - 07/26/2016 9:59 AM EST [facility] MR #: [id number] [facility] SHANDA GARNICA [place], [place] [address] 1990 (Age: 26) FW Collect Date: 07/10/2016 00:00 Receipt Date: 07/11/2016 09:48 Page 1 DEPARTMENT OF PATHOLOGY AND LABORATORY MEDICINE CYTOPATHOLOGY REPORT Email: [email or web address] ATTENDING MD/Practitioner: Kimberley Caldera MD Service: OBE Location: [facility] Reported: 07/26/2016 09:59 Collected: 07/10/2016 00:00 INTERPRETATION A. THIN PREP (CERVICAL/VAGINAL): NEGATIVE FOR INTRAEPITHELIAL LESION OR MALIGNANCY. SATISFACTORY FOR EVALUATION; ENDOCERVICAL/ TRANSFORMATION ZONE COMPONENT PRESENT. Slide scanned and imaged by [employer] ThinPrep Imaging System with manual review of all selected vallecillo. Please correlate with HPV results (see microbiology report, or call [phone]). Please see ([email or web address]) for suggested follow up. [...] results is suggested (please call Microbiology at [phone] for results). CLINICAL INFORMATION: Menstrual History: : First Trimester Date of Last Menstrual Period: 04/23/2016 Other Clinical Conditions: Abnormal pap results elsewhere: h/o abnormal pap smears, had colpo, LEEP with normal repeat paps Date not provided Clinical information indicates patient has high risk factor(s). HPV testing requested. SPECIMEN DESCRIPTION: A: THIN PREP (CERVICAL/VAGINAL) THIN PREP PROCESS CELLULAR ENHANCEMENT ICD: F: A; DX IMAGE 38504 SNOMED CODES: A; B9L219 [id number] [id number] In cases where a pathologist has signed [...] Most Recently Relevant to Health Maintenance [place] [address] [place] [address] Care Teams Spice Grinder Relationship Specialty Start Date End Date Pcp, No [address] [place] [address] PCP - General Family Medicine 06/07/22
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
--- OUTSIDE RECORDS SUMMARY | 2025-03-19 14:24 | XMS_ITS | Encounter Summary ---
[facility] Address [address] [place] [address] Care Team Providers Care Cash Sales Audit Clerk Name Role Phone Provider, No Known Primary Care Provider [phone] Encounter Details Date Type Department Care Team (Late st Contact Info) Description 02/21/2016 Telephone [facility] OBGYN [address] [facility] [address] [place] [address] Jesus Carlson MD [address] [facility] [address] [place] [address] Social History Tobacco Use Types Packs/Day Years [...] on filedocumented in this encounter Care Teams Cash Sales Audit Clerk Relationship Specialty Start Date End Date Provider, No Known [place], [place] [id number] PCP - General 12/29/15 documented as of this encounter
--- OUTSIDE RECORDS SUMMARY | 2025-03-19 14:24 | XMS_ITS | Encounter Summary ---
[facility] Address [address] [place] [id number] Care Team Providers Care Locomotive Lubricating Systems Clerk Name Role Phone Provider, No Known Primary Care Provider [phone] Encounter Details Date Type Department Care Team (Late st Contact Info) Description 02/23/2016 Telephone [facility] OBGYN [address] [facility] [address] [place] [address] Jesus Carlson MD [address] [facility] [address] [place] [address] Social History Tobacco Use Types Packs/Day Years [...] on filedocumented in this encounter Care Teams Locomotive Lubricating Systems Clerk Relationship Specialty Start Date End Date Provider, No Known [place] [id number] PCP - General 12/29/15 documented as of this encounter
--- OUTSIDE RECORDS SUMMARY | 2025-03-19 14:24 | XMS_ITS | Clinical Summary ---
Author Organization [facility] Address [address] [place] [address] Care Team Providers Care Cathode Maker Name Role Phone Provider, No Known Primary Care Provider Allergies No known active allergies Medications sertraline [...] patient's age to complete this topic [place] [address] [place] [address] PPO Advance Directives * Full Code (Latest Code Status on File) Date Activated Date Inactivated Comments 02/25/2016 12:03 PM 02/26/2016 4:01 PM Care Teams Cathode Maker Relationship Specialty Start Date End Date Provider, [place] [address] PCP - General 12/29/15
--- OUTSIDE RECORDS SUMMARY | 2025-03-19 14:25 | XMS_ITS | Clinical Summary ---
Author Organization [facility] Address [address] [facility], [address] [place] [address] Care Team Providers Care Respite Provider Name Role Phone System, Referring Not In [...] of Treatment Not on file Care Teams Respite Provider Relationship Specialty Start Date End Date System, Referring Not In PCP - General 03/05/16
== END 2025-03-19 23:59 | disposition home or self-care (01) ==
LOC: LAB 14:22
PROVIDERS: PCP Family Medicine; Visit Provider Obstetrics & Gynecology
DX: O02.1 Missed abortion (principal); Z3A.00 Weeks of gestation of pregnancy not specified
CPT/HCPCS: 36415; 84702

== ENCOUNTER 2025-03-23 16:16 | Outpatient (CLI) | payer OTHER, SELFPAY ==
--- OUTSIDE RECORDS SUMMARY | 2016-02-01 12:33 | XMS_ITS | Encounter Summary ---
[facility] Address [address] [place] [address] Care Team Providers Care Taker Off Name Role Phone Provider, No Known Primary Care Provider [phone] Encounter Details Date Type Department Care Team (Latest Contact Info) Description 02/01/2016 12:33 PM EDT Hospital Encounter [facility] [phone] Encounter for supervision of normal first in [...] EDT PAT NAME: SHANDA GARNICA MED REC#: [id number] DA: [id number] PAT GEND: F PAT TYPE: O EXAM IRINA: [id number] REF PHYS YESICA BARNARD Indication ======== anatomy [...] 61% EFW 338 g Calculated by: Hadlock (EKD-WG-WV-FL) EFW (lb) 0 lb EFW (oz) 12 [...] subsequent visit to complete the anatomic screening. Wiring Inspector: Fern Gallegos RDCT Physician: Eliezer Morris MD Electronically signed by: Eliezer Morris MD at: 14:42 Procedure Note Eliezer Morris MD - 02/01/2016 PAT NAME: SHANDA GARNICA MED REC#: [id number] DA: 1990 PAT GEND: F PAT TYPE: O EXAM IRINA: [id number] REF PHYS YESICA BARNARD Indication ======== anatomy [...] Cerebellum tr21.3 mm66% 20w 2d CM5.4 mm61% GYS537 g Calculated by:Princess (WZY-HE-UE-FL) EFW (lb)0 lb EFW (oz)12 oz Cephalic index0.701% HC / AC1.2180% FL / BPD0.7151% FL / AC0.2249% ALN133 bpm Anatomy Cranium:Cranial vault appears intact with [...] a subsequent visit tocomplete the anatomic screening. Wiring Inspector: Fern Gallegos RDMS Physician: Eliezer Morris MD Electronically signed by: Eliezer Morris MD at: 14:42 us Yesica Barnard MD [facility] [place] US ORDERABLES Final Result documented in this encounter Visit Diagnoses Diagnosis Encounter for supervision of normal first in second trimester documented in this encounter Care Teams Taker Off Relationship Specialty Start Date End Date Provider, [place] [address] PCP - General 12/29/15 documented as of this encounter
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
--- OUTSIDE RECORDS SUMMARY | 2025-02-27 11:30 | XMS_ITS ---
Author Organization [facility] Address [address] [place] [phone] Care Team Providers Care Synthetic Filament Spinner Name Role Phone Vamshi Cook Primary Care Provider [phone] Norma Olivares [phone] REASON FOR VISIT Cough, Sputum Production, 7 Weeks Encounters Encounter Location Date Provider Diagnosis [facility] [address] [place] [phone] 02/27/2025 Norma Olivares Plan Of Treatment No Information Progress Notes * DENI GARNICA MDOB:[birth year] (35 yo F)Acc No.mDOS:02/27/2025 Progress Notes Patient: DENI BASSETT Account Number:m Provider: CK Wellington :1990 A ge:35 Y S ex:Female Date:02/27/2025 Address:[address] [place], [place] [phone] Pcp:Vamshi Cook Subjective: * Chief Complaints: * 1 . Cough, Sputum Production, 7 Weeks . * Medical History: Objective: * Vitals: Assessment: Plan: * Treatment: * Images: Billing Information: * Visit Code: * Procedure Codes: * Electronic signature of CK Peterson on 03/23/2025 at 04:18 PM EDT Sign off status: Pending * Provider: CK Wellington Date: 0 02/27/2025 Generated for Printi ng/Faxing/eTransmitting on: 0 03/23/2025 04:18 PM EDT
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
--- OUTSIDE RECORDS SUMMARY | 2025-03-23 16:18 | XMS_ITS | Clinical Summary ---
Author Organization [facility] Address [address] [place] [id number] Care Team Providers Care Product Marketing Specialist Name Role Phone Provider, No Known Primary Care Provider [phone] Allergies No known active allergies Medications sertraline [...] patient's age to complete this topic [place] [address] [place] [address] PPO Member Subscriber Plan / Payer (Ef fective 2012-Present) Name:Shanda Solares Relation to Subscriber:Child Name:MEGHNA SKINNER Date of :1956 Address: [address] [place] [address] Payer ID:[id number] (NAIC) Type:Not on file Address: [facility] [address] [place] [address] Advance Directives * Full Code (Latest Code Status on File) Date Activated Date Inactivated Comments 02/25/2016 12:03 PM 02/26/2016 4:01 PM Care Teams Product Marketing Specialist Relationship Specialty Start Date End Date Provider, [place] [address] PCP - General 12/29/15
--- OUTSIDE RECORDS SUMMARY | 2025-03-23 16:19 | XMS_ITS | Clinical Summary ---
Author Organization Healthcare Address [address] [place] [address] Care Team Providers Care Silk Finisher Name Role Phone Pcp, No Primary Care [...] Cancer Screening 02/06/2022 UKY-HPV/Cotest 02/06/2022 07/10/2016, 07/10/2016 [id number]-44 Vaccine ( - season) 2024 UKY-Influenza Vaccine [...] Narrative SUNQUEST - 07/26/2016 9:59 AM EST [facility] MR #: [id number] [facility] SHANDA GARNICA [place], [place] [address] 1990 (Age: 26) FW Collect Date: 07/10/2016 00:00 Receipt Date: 07/11/2016 09:48 Page 1 DEPARTMENT OF PATHOLOGY AND LABORATORY MEDICINE CYTOPATHOLOGY REPORT Email: [email or web address] [id number] ATTENDING MD/Practitioner: Kimberley Caledra MD Service: OBE Location: [facility] Reported: 07/26/2016 09:59 Collected: 07/10/2016 00:00 INTERPRETATION A. THIN PREP (CERVICAL/VAGINAL): NEGATIVE FOR INTRAEPITHELIAL LESION OR MALIGNANCY. SATISFACTORY FOR EVALUATION; ENDOCERVICAL/ TRANSFORMATION ZONE COMPONENT PRESENT. Slide scanned and imaged by [employer] ThinPrep Imaging System with manual review of all selected vallecillo. Please correlate with HPV results (see microbiology report, or call [phone]). Please see ([email or web address]) for suggested follow up. [...] results is suggested (please call Microbiology at [phone] for results). CLINICAL INFORMATION: Menstrual History: : First Trimester Date of Last Menstrual Period: 04/23/2016 Other Clinical Conditions: Abnormal pap results elsewhere: h/o abnormal pap smears, had colpo, LEEP with normal repeat paps Date not provided Clinical information indicates patient has high risk factor(s). HPV testing requested. SPECIMEN DESCRIPTION: A: THIN PREP (CERVICAL/VAGINAL) THIN PREP PROCESS CELLULAR ENHANCEMENT ICD: F: A; DX IMAGE 87821 SNOMED CODES: A; Y5C669 [id number] [id number] [id number] In cases where a pathologist has signed [...] Most Recently Relevant to Health Maintenance [place] [place] [address] [place] [address] Care Teams Silk Finisher Relationship Specialty Start Date End Date Pcp, No [address] [place] [address] PCP - General Family Medicine 06/07/22
--- OUTSIDE RECORDS SUMMARY | 2025-03-23 16:19 | XMS_ITS | Encounter Summary ---
[facility] Address [address] [place] [id number] Care Team Providers Care Tool And Die Maker Level Five Name Role Phone Provider, No Known Primary Care Provider [phone] Encounter Details Date Type Department Care Team (Late st Contact Info) Description 02/23/2016 Telephone [facility] OBGYN [address] [facility] [address] [place] [address] Jesus Carlson MD [address] [facility] [address] [place] [address] Social History Tobacco Use Types Packs/Day Years [...] on filedocumented in this encounter Care Teams Tool And Die Maker Level Five Relationship Specialty Start Date End Date Provider, No Known [place] [id number] PCP - General 12/29/15 documented as of this encounter
--- OUTSIDE RECORDS SUMMARY | 2025-03-23 16:19 | XMS_ITS | Encounter Summary ---
[facility] Address [address] [place] [address] Care Team Providers Care Biology Internship Name Role Phone Provider, No Known Primary Care Provider [phone] Encounter Details Date Type Department Care Team (Late st Contact Info) Description 02/21/2016 Telephone [facility] OBGYN [address] [facility] [address] [place] [address] eJsus Carlson MD [address] [facility] [address] [place] [address] Social History Tobacco Use Types Packs/Day Years [...] on filedocumented in this encounter Care Teams Biology Internship Relationship Specialty Start Date End Date Provider, No Known [place], [place] [address] PCP - General 12/29/15 documented as of this encounter
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
--- OUTSIDE RECORDS SUMMARY | 2025-03-23 16:20 | XMS_ITS | Clinical Summary ---
Author Organization [facility] Address [address] [facility], [address] [place] [address] Care Team Providers Care Casework Supervisor Name Role Phone System, Referring Not In [...] of Treatment Not on file Care Teams Casework Supervisor Relationship Specialty Start Date End Date System, Referring Not In PCP - General 03/05/16
== END 2025-03-23 23:59 | disposition home or self-care (01) ==
LOC: LAB 16:17
PROVIDERS: PCP Family Medicine; Visit Provider Obstetrics & Gynecology
DX: O03.9 Complete or unspecified spontaneous abortion without complication (principal); Z3A.00 Weeks of gestation of pregnancy not specified
CPT/HCPCS: 36415; 84702

== ENCOUNTER 2025-03-24 09:08 | Day surgery (SDC) | payer OTHER, SELFPAY ==
--- OUTSIDE RECORDS SUMMARY | 2016-02-01 12:33 | XMS_ITS | Encounter Summary ---
[facility] [address] [place] [address] Care Team Providers Care Mash Tub Cooker Name Role Phone Provider, No Known Primary Care Provider [phone] Encounter Details Date Type Department Care Team (Latest Contact Info) Description 02/01/2016 12:33 PM EDT Hospital Encounter [facility] [phone] Encounter for supervision of normal first in [...] EDT PAT NAME: SHANDA GARNICA MED REC#: [id number] DA: [id number] PAT GEND: F PAT TYPE: O EXAM IRINA: [id number] REF PHYS YESICA BARNARD Indication ======== anatomy [...] 61% EFW 338 g Calculated by: Hadlock (QDN-BP-OY-FL) EFW (lb) 0 lb EFW (oz) 12 [...] subsequent visit to complete the anatomic screening. Rn Office: Fern Gallegos RDMI Physician: Eliezer Morris MD Electronically signed by: Eliezer Morris MD at: 14:42 Procedure Note Eliezer Morris MD - 02/01/2016 PAT NAME: SHANDA GARNICA MED REC#: [id number] DA: 1990 PAT GEND: F PAT TYPE: O EXAM IRINA: [id number] REF PHYS YESICA BARNARD Indication ======== anatomy [...] Cerebellum tr21.3 mm66% 20w 2d CM5.4 mm61% QKT176 g Calculated by:Princess (RPR-ZH-FK-FL) EFW (lb)0 lb EFW (oz)12 oz Cephalic index0.701% HC / AC1.2180% FL / BPD0.7151% FL / AC0.2249% ZOK998 bpm Anatomy Cranium:Cranial vault appears intact with [...] a subsequent visit tocomplete the anatomic screening. Rn Office: Fern Gallegos RDMS Physician: Eliezer Morris MD Electronically signed by: Eliezer Morris MD at: 14:42 us Yesica Baranrd MD [facility] ORDERABLES Final Result documented in this encounter Visit Diagnoses Diagnosis Encounter for supervision of normal first in second trimester documented in this encounter Care Teams Mash Tub Cooker Relationship Specialty Start Date End Date Provider, [place] [address] PCP - General 12/29/15 documented as of this encounter
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
--- OUTSIDE RECORDS SUMMARY | 2025-02-27 11:30 | XMS_ITS ---
Author Organization [facility] Address [address] [place] [phone] Care Team Providers Care Special Duty Nurse Name Role Phone Vamshi Cook Primary Care Provider Norma Olivares [phone] REASON FOR VISIT Cough, Sputum Production, 7 Weeks Encounters Encounter Location Date Provider Diagnosis [facility] [address] [place] [phone] 02/27/2025 Norma Olivares Plan Of Treatment No Information Progress Notes * DENI GARNICA MDOB:[birth year] (35 yo F)Acc No.mDOS:02/27/2025 Progress Notes Patient: DENI BASSETT Account Number:m Provider: CK Wellington :1990 A ge:35 Y S ex:Female Date:02/27/2025 Address:[address] [place], [place] [phone] Pcp:Vamshi Cook Subjective: * Chief Complaints: * 1 . Cough, Sputum Production, 7 Weeks . * Medical History: Objective: * Vitals: Assessment: Plan: * Treatment: * Images: Billing Information: * Visit Code: * Procedure Codes: * Electronic signature of CK Peterson on 03/24/2025 at 09:45 AM EDT Sign off status: Pending * Provider: CK Wellington Date: 0 02/27/2025 Generated for Printi ng/Faxing/eTransmitting on: 0 03/24/2025 09:45 AM EDT
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
[2025-03-24] VITALS (12 sets, daily range): BP systolic 103–138; BP diastolic 51–79; PULSE 72–109; RESP 17–20; TEMP 36.4–36.7; O2SAT 97–100; BMI 35.4
--- OUTSIDE RECORDS SUMMARY | 2025-03-24 09:46 | XMS_ITS | Clinical Summary ---
Author Organization [facility] Address [address] [facility], [address] [place] [address] Care Team Providers Care Bladder Changer Name Role Phone System, Referring Not In [...] of Treatment Not on file Care Teams Bladder Changer Relationship Specialty Start Date End Date System, Referring Not In PCP - General 03/05/16
--- OUTSIDE RECORDS SUMMARY | 2025-03-24 09:46 | XMS_ITS | Encounter Summary ---
[facility] Address [address] [place] [address] Care Team Providers Care Smoking Tobacco Packing Machine Hand Name Role Phone Provider, No Known Primary Care Provider [phone] Encounter Details Date Type Department Care Team (Late st Contact Info) Description 02/21/2016 Telephone [facility] OBGYN [address] [facility] [address] [place] [address] Jesus Carlson MD [address] [facility] [address] [place] [address] Social History Tobacco Use Types Packs/Day Years [...] on filedocumented in this encounter Care Teams Smoking Tobacco Packing Machine Hand Relationship Specialty Start Date End Date Provider, No Known [place], [place] [id number] PCP - General 12/29/15 documented as of this encounter
--- OUTSIDE RECORDS SUMMARY | 2025-03-24 09:46 | XMS_ITS | Clinical Summary ---
Author Organization [facility] Address [address] [place] [address] Care Team Providers Care Boiler Coverer Name Role Phone Pcp, No Primary Care [...] Cancer Screening 02/06/2022 UKY-HPV/Cotest 02/06/2022 07/10/2016, 07/10/2016 [id number] Vaccine ( - season) 2024 UKY-Influenza Vaccine [...] Narrative SUNQUEST - 07/26/2016 9:59 AM EST [facility] MR #: [id number] [facility] SHANDA GARNICA [place], [place] [address] 1990 (Age: 26) FW Collect Date: 07/10/2016 00:00 Receipt Date: 07/11/2016 09:48 Page 1 DEPARTMENT OF PATHOLOGY AND LABORATORY MEDICINE CYTOPATHOLOGY REPORT Email: [email or web address] ATTENDING MD/Practitioner: Kimberley Caldera MD Service: OBE Location: [facility] Reported: 07/26/2016 09:59 Collected: 07/10/2016 00:00 INTERPRETATION A. THIN PREP (CERVICAL/VAGINAL): NEGATIVE FOR INTRAEPITHELIAL LESION OR MALIGNANCY. SATISFACTORY FOR EVALUATION; ENDOCERVICAL/ TRANSFORMATION ZONE COMPONENT PRESENT. Slide scanned and imaged by [employer] ThinPrep Imaging System with manual review of all selected vallecillo. Please correlate with HPV results (see microbiology report, or call [phone]). Please see ([email or web address]) for suggested follow up. [...] results is suggested (please call Microbiology at [phone] for results). CLINICAL INFORMATION: Menstrual History: : First Trimester Date of Last Menstrual Period: 04/23/2016 Other Clinical Conditions: Abnormal pap results elsewhere: h/o abnormal pap smears, had colpo, LEEP with normal repeat paps Date not provided Clinical information indicates patient has high risk factor(s). HPV testing requested. SPECIMEN DESCRIPTION: A: THIN PREP (CERVICAL/VAGINAL) THIN PREP PROCESS CELLULAR ENHANCEMENT ICD: F: A; DX IMAGE 82514 SNOMED CODES: A; S0U941 [id number] [id number] [id number] In cases where a pathologist has signed [...] Most Recently Relevant to Health Maintenance [place] [address] [address] [place] [address] Care Teams Boiler Coverer Relationship Specialty Start Date End Date Pcp, No [address] [place] [address] PCP - General Family Medicine 06/07/22
--- OUTSIDE RECORDS SUMMARY | 2025-03-24 09:46 | XMS_ITS | Encounter Summary ---
[facility] Address [address] [place] [id number] Care Team Providers Care Core Machine Tender Name Role Phone Provider, No Known Primary Care Provider [phone] Encounter Details Date Type Department Care Team (Late st Contact Info) Description 02/23/2016 Telephone [facility] OBGYN [address] [facility] [address] [place] [address] Jesus Carlson MD [address] [facility] [address] [place] [address] Social History Tobacco Use Types Packs/Day Years [...] on filedocumented in this encounter Care Teams Core Machine Tender Relationship Specialty Start Date End Date Provider, No Known [place] [id number] PCP - General 12/29/15 documented as of this encounter
--- OUTSIDE RECORDS SUMMARY | 2025-03-24 09:46 | XMS_ITS | Clinical Summary ---
Author Organization [facility] Address [address] [place] [address] Care Team Providers Care Chief Of Anesthesiology Name Role Phone Provider, No Known Primary Care Provider [phone] Allergies No known active allergies Medications sertraline [...] patient's age to complete this topic [place] [address] [address] PPO Advance Directives * Full Code (Latest Code Status on File) Date Activated Date Inactivated Comments 02/25/2016 12:03 PM 02/26/2016 4:01 PM Care Teams Chief Of Anesthesiology Relationship Specialty Start Date End Date Provider, [place] [address] PCP - General 12/29/15
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
[2025-03-24 09:48] LABS: Hematocrit 32.4 % (37.0-47.0); Hemoglobin 11.0 g/dL (12.2-16.2); Immature Granulocytes % 0.5 %; Mean Corpuscular HGB Conc 34.0 g/dL (31.8-35.4); Mean Corpuscular Hemoglobin 31.2 pg (27.0-31.2); Mean Corpuscular Volume 91.8 fl (81-99); Nucleated Red Blood Cells % 0 %; Platelet Count 177 K/mm3 (142-424); Red Blood Count 3.53 M/mm3 (4.20-5.40); Red Cell Distribution Width-SD 42.0 fL; White Blood Count 6.4 K/mm3 (4.8-10.8)
[2025-03-24] MEDS: ONDANSETRON 4MG/2ML VIAL 4 MG IV (09:50)
--- NOTE | 2025-03-24 09:50 | US_ITS ---
PROCEDURE INFORMATION: Exam: US Pelvis, Transvaginal, Non-Obstetric Exam date and time: 03/24/2025 10:33 AM Age: 35 years old Clinical indication: Other: Passing clots, cramping; Pelvic pain; Additional info: Miscarriage? Retained products? TECHNIQUE: Imaging protocol: Real-time transvaginal pelvic (non-obstetric) ultrasound with image documentation. Transvaginal imaging was used for better evaluation of the endometrium, adnexa, and/or cervix. COMPARISON: US TRANSVAGINAL 03/10/2025 8:51 AM FINDINGS: Uterus: Dilated cervix with blood products noted. Thickened endometrium measuring 2.3 cm with an increased vascularity may represent retained products of conception. Right ovary/adnexa: The right ovary measures 2.2 x 2.6 x 2.6 cm. Blood flow is noted in both ovaries. Left ovary/adnexa: The left ovary measures 1.8 x 2.7 x 2.7 cm. Blood flow is noted in both ovaries. Urinary bladder: Urinary bladder is limited. Gestation: No evidence of intrauterine gestational sac. Intraperitoneal space: No free fluid. IMPRESSION: No evidence of intrauterine gestational sac. Dilated cervix with blood products noted. Thickened endometrium measuring 2.3 cm with an increased vascularity may represent retained products of conception. These findings may represent ongoing .
[2025-03-24 09:51] LABS: Chloride 106 mmol/L (98-107)
[2025-03-24 09:52] LABS: Albumin Level 3.9 g/dl (3.5-5.0); Potassium 3.6 mmoL/L (3.5-5.1); Sodium 137 mmol/L (136-145)
--- NOTE | 2025-03-24 09:52 | ED_ITS ---
Discharge Plan Disposition Patient Disposition: Admitted Prescriptions Prescriptions: No Action azithromycin 250 mg tablet 250 mg PO DAILY Classic 28 mg iron- 800 mcg tablet 1 tab PO DAILY Qty: 30 3RF ibuprofen 800 mg tablet 800 mg PO Q8H 7 Days Qty: 21 0RF misoprostol [Cytotec] 200 mcg tablet 800 mcg vaginal Q4H PRN (Reason: spontaneous miscarriage) Qty: 8 0RF Rx Instructions: Can take sublingual or insert vaginally hydrocodone-acetaminophen 5-325 mg tablet 1 tab PO Q4-6H PRN (Reason: pain) Qty: 20 0RF Referrals Follow up/Referrals: Twyla Hensley MD [Primary Care Provider, Medical] - See instructions Clinical Impressions Clinical Impression: Retained products of conception Instructions Patient Instructions: DI for Urinary Tract Infection (UTI), DI for Urinary Tract Infection in Children Print Language Print Language: Divehi Discharge ED Provider: Donald Morris General Adult HPI General Chief complaint: Urogenital-Female Stated complaint: Bleeding/ lower back pain 9 AP Time Seen by Provider: 03/24/25 09:41 Mode of Arrival: Ambulatory Source of Information: Patient Description of Symptoms (Recalled from ER Triage Doc. by RN): pt is here for pelvic pain and cramping and passing tissue after taking 2 doses of cytotec 7-10 days ago, pt sees dr nicholas for obgyn, pt is B positive History of Present Illness HPI narrative: Patient is a 35-year-old female G4, P1 who was 8 weeks by ultrasound at 6 weeks had a heart rate but at 8 weeks there was no longer a heart rate and she had an inevitable AB and was given Cytotec had taken multiple doses of this started bleeding and having discomfort 1 week from this past Sunday so almost 10 days ago and then yesterday began having more cramping and pain and today passed a very large clot lost a large amount of blood and she was concerned about this but continued to have severe contractions and is still bleeding at the moment. Related Data Home Medications ?Medication ?Instructions ?Recorded ?Confirmed azithromycin 250 mg tablet 250 mg PO DAILY 03/03/25 Previous Rx's ?Medication ?Instructions ?Recorded vits no.126-ferrous fum 1 tab PO DAILY #30 ta bs 02/06/25 28 mg iron-folic acid 800 mcg tablet (Classic ) ibuprofen 800 mg tablet 800 mg PO Q8H 7 days #21 tab s 03/10/25 hydrocodone 5 mg-acetaminophen 325 1 tab PO Q4-6H PRN pain #20 tabs 03/14/25 mg tablet misoprostol 200 mcg tablet 800 mcg (4 x 200 mcg) vagin al Q4H 03/14/25 (Cytotec) PRN spontaneous miscarriage #8 tabs Allergies Allergy/AdvReac Type Severity Reaction Status Date / Time No Known Allergies Allergy Verified 03/03/25 08:32 [facility] Disclaimer: The information contained in this section may have been updated after the patient was seen, as this information can be updated by other users. Medical History Hx LEEP (loop electrosurgical excision procedure), cervix, Generalized anxiety disorder Attention deficit disorder (ADD) in adult Patient given sample box of Esteban, patient to follow-up in 2 weeks to see if this is helping. 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 Have you lived/traveled outside US in past 30 days?: No Contact w/someone who lives/traveled outside US past 30 days?: No Exposure to someone with infectious disease in past 14 days?: No Do you have a fever (greater than 100.4 F or 38 C)?: No Have you tested positive for COVID-19?: No Exposed to someone with COVID-19 in past 14 days?: No Do you have a sore throat?: No Do you have a cough?: No Do you have any weakness?: No Do you have any diarrhea?: No Are you experiencing any unusual bleeding?: No Do you have any muscle aches/pain?: No Do you have any abdominal pain?: No Are you experiencing loss of taste or smell?: No Other Medical History Have you received the Pneumonia Vaccine: No ROS Obtained: Yes All systems reviewed & no additional complaints except as documented Physical Exam General General appearance: alert and in no apparent distress Respiratory Respiratory exam: Present normal lung sounds bilaterally Cardiovascular Cardiovascular exam: Present regular rate Abdominal Exam Abdominal exam: Present soft and tenderness (Significant lower abdominal tenderness to palpation); Absent distention Neurological Exam Neurological exam: Present alert and oriented X3 Medical Decision Making Medical Records Screening: Per USPSTF and CDC recommendations, given the prevalence of disease in our region, it is our hospital?s policy to screen for HIV and viral Hepatitis for all patients aged 18 and over and those with ongoing risk factors. Devyn Inquiry Pt receiving controlled substance: No Vital Signs: 03/24/25 09:24 03/24/25 09:52 Temperature 98.1 F Temperature Source Oral Pulse Rate 98 H Pulse Rate [Left Radial] 109 H Respiratory Rate 20 Blood Pressure 138/67 Blood Pressure [Right Arm] 111/52 L Blood Pressure Mean [Right Arm] 71 02 Sat by Pulse Oximetry 99 100 Oxygen Delivery Method Room Air Lab Data Lab results reviewed: Yes I reviewed the patient's lab results. Lab Results 03/24/25 09:37: WBC 6.4, RBC 3.53 L, Hgb 11.0 L, Hct 32.4 L, MCV 91.8, MCH 31.2, MCHC 34.0, RDW 12.6, Plt Count 177, MPV 9.9, Neut % (Auto) 70.9, Lymph % (Auto) 18.7, Stevens % (Auto) 7.7, Eos % (Auto) 1.9, Baso % (Auto) 0.3, Neut # (Auto) 4.5, Lymph # (Auto) 1.2, Stevens # (Auto) 0.5, Eos # (Auto) 0.1, Baso # (Auto) 0.0, PT 10.6, INR 0.95, APTT 24.8, Sodium 137, Potassium 3.6, Chloride 106, Carbon Dioxide 26, Anion Gap 8.6, BUN 10, Creatinine 0.60, Estimated Creat Clear 191, Estimated GFR 115, Est GFR ( Amer) 139, Glucose 106 H, Calcium 8.9, Total Bilirubin 0.2, AST 27, ALT 17, Alkaline Phosphatase 55, Total Protein 6.6, Albumin 3.9, Globulin 2.7, Albumin/Globulin Ratio 1.4, HCG, Quant [id number] H 03/24/25 09:59: Blood Type B Positive, Antibody Screen Negative 03/24/25 11:02: WBC 7.9, RBC 3.43 L, Hgb 10.5 L, Hct 31.1 L, MCV 90.7, MCH 30.6, MCHC 33.8, RDW 12.5, Plt Count 175, MPV 10.0, Neut % (Auto) 78.4, Lymph % (Auto) 12.9, Stevens % (Auto) 7.0, Eos % (Auto) 1.1, Baso % (Auto) 0.3, Neut # (Auto) 6.2, Lymph # (Auto) 1.0, Stevens # (Auto) 0.6, Eos # (Auto) 0.1, Baso # (Auto) 0.0 03/24/25 11:02 03/24/25 09:37 Orders (Tests/Meds): ED MEDICATIONS Discontinued Medications Generic Name Dose Route Start Last Admin Trade Name Freq PRN Reason Stop Dose Admin Lactated Ringer's 1,000 mls @ 999 mls/hr 03/24/25 10:00 03/24/25 09:55 Lactated Ringer's 1000 Ml Bag IV 03/24/25 11:00 999 mls/hr .Q1H1M ELIO Administration Ketorolac Tromethamine 15 mg 03/24/25 10:50 03/24/25 10:53 Ketorolac 15mg/Ml Vial IV 03/24/25 10:51 15 mg ONCE ONE Administration Morphine Sulfate 4 mg 03/24/25 09:50 03/24/25 09:55 Morphine 4mg/Ml Syringe IV 03/24/25 09:51 4 mg ONCE ONE Administration Ondansetron HCl 4 mg 03/24/25 09:39 03/24/25 09:50 Ondansetron 4mg/2ml Vial IV 03/24/25 09:40 4 mg ONCE ONE Administration Ondansetron HCl 4 mg 03/24/25 09:50 03/24/25 09:53 Ondansetron 4mg/2ml Vial IV 03/24/25 09:51 Not Given ONCE ONE ORDERS Category Date Time Status Type and Screen Stat BBK 03/24/25 09:59 Completed US transvaginal Stat Exams 03/24/25 09:50 Completed CBC w/Auto Diff [Complete Blood Count Auto Diff] Stat Lab 03/24/25 11:02 Completed Complete Blood Count Auto Diff Stat Lab 03/24/25 09:37 Completed Comprehensive Metabolic Panel Stat Lab 03/24/25 09:37 Completed HCG,Quantitative Stat Lab 03/24/25 09:37 Completed PT/PTT Stat Lab 03/24/25 09:37 Completed UA [Urinalysis and Microscopic] Stat Lab 03/24/25 09:31 Ordered Medical Decision Narrative: Patient is hemodynamically stable 35-year-old with what sounds like early loss where she was given Cytotec to try to complete her miscarriage but she continues to have pain bleeding and passed a large amount of clot/tissue this morning. She was very concerned and scared with amount of bleeding however she appears very stable at the moment. Will get blood work including type and screen H&H quantitative beta-hCG etc. Also will obtain an ultrasound to see if there is significant retained products of conception. She is almost 10 days out at this point may need a D&C however she would like to not have a D&C as she would still like to have future babies. She has had a D&C when she was 23 years old and was infertile for 2 years after that. I will get this workup and likely discussed the case with Dr. Us her [employer] doctor. Reassessment 1121 after returning from ultrasound patient had a very large amount of blood that is ongoing I offered to do a pelvic exam to see if there is any products at the cervical os however she was concerned and scared about this. I called Dr. Us who came and saw the patient at the bedside and ultimately decided to take her to the operating room for a D&C. Patient remained stable however she looked more pale and was more tachycardic on my evaluation was 120 last time I evaluated her. Repeat H&H were sent. Patient is typed and crossed. Ultimately patient admitted to go to the operating room. Critical Care Critical Care Time Critical Care Time: Yes Attestation: On 03/24/25, the high probability of a clinically significant, sudden or life threatening deterioration of the following system(s) required my full and direct attention, intervention and personal management. The time I documented below is in addition to time spent performing reported procedures but includes the following listed in this critical care notation. Total Time Total Critical Care Time: 35
[2025-03-24 09:54] LABS: Alanine Aminotransferase 17 U/L (12-78); Albumin/Globulin Ratio 1.4 (1.1-1.8); Alkaline Phosphatase 55 U/L (38-126); Anion Gap 8.6 mEq/L (5-15); Aspartate Amino Transferase 27 U/L (14-36); Bilirubin,Total 0.2 mg/dl (0.2-1.3); Blood Urea Nitrogen 10 mg/dl (7-17); Carbon Dioxide 26 mmol/L (22.0-30.0); Creatinine Clearance Estimated 191 mL/min (50-200); Creatinine,Serum 0.60 mg/dl (0.52-1.04); Estimated Glomerular Filt Rate 115 ml/min (>60); GFR (African American) 139 ML/MIN (>60); Globulin 2.7 g/dL (1.3-3.2); Total Protein,Serum 6.6 g/dl (6.3-8.2)
[2025-03-24 09:55] LABS: Calcium 8.9 mg/dl (8.4-10.2); Glucose 106 mg/dl (74-100)
[2025-03-24] MEDS: LACTATED RINGERS 1000ML 1,000 ML 999 ML IV (09:55)
[2025-03-24] MEDS: MORPHINE 4MG/ML SYRINGE 4 MG IV (09:55)
[2025-03-24 10:16] LABS: Activated Partial Thrombo Time 24.8 seconds (22.8-30.6); INR 0.95 (0.9-1.1); Prothrombin Time 10.6 seconds (10.1-12.5)
--- NOTE | 2025-03-24 10:51 | PC.NURSE ---
Dr. Gonsalez called at this time.
[2025-03-24] MEDS: KETOROLAC 15MG/ML VIAL 15 MG IV (10:53)
--- NOTE | 2025-03-24 11:07 | PC.NURSE ---
at bedside at this time.
[2025-03-24 11:15] LABS: Hematocrit 31.1 % (37.0-47.0); Hemoglobin 10.5 g/dL (12.2-16.2); Immature Granulocytes % 0.3 %; Mean Corpuscular HGB Conc 33.8 g/dL (31.8-35.4); Mean Corpuscular Hemoglobin 30.6 pg (27.0-31.2); Mean Corpuscular Volume 90.7 fl (81-99); Nucleated Red Blood Cells % 0 %; Platelet Count 175 K/mm3 (142-424); Red Blood Count 3.43 M/mm3 (4.20-5.40); Red Cell Distribution Width-SD 41.1 fL; White Blood Count 7.9 K/mm3 (4.8-10.8)
[2025-03-24] MEDS: DOXYCYCLINE HYCL 100 MG TABLET 200 MG PO (11:34)
--- NOTE | 2025-03-24 11:48 | P.PNANES_ITS ---
[facility] Disclaimer: The information contained in this section may have been updated after the patient was seen, as this information can be updated by other users. Medical History Hx LEEP (loop electrosurgical excision procedure), cervix, Generalized anxiety disorder Attention deficit disorder (ADD) in adult Patient given sample box of Esteban, patient to follow-up in 2 weeks to see if this is helping. 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 Have you lived/traveled outside US in past 30 days?: No Contact w/someone who lives/traveled outside US past 30 days?: No Exposure to someone with infectious disease in past 14 days?: No Do you have a fever (greater than 100.4 F or 38 C)?: No Have you tested positive for COVID-19?: No Exposed to someone with COVID-19 in past 14 days?: No Do you have a sore throat?: No Do you have a cough?: No Do you have any weakness?: No Do you have any diarrhea?: No Are you experiencing any unusual bleeding?: No Do you have any muscle aches/pain?: No Do you have any abdominal pain?: No Are you experiencing loss of taste or smell?: No [facility] Anesthesia Checklist Patient Identification Patient Identification: Arm Band Structural Data Admitted From: Emergency Dept Planned Operative Procedure/s: D&C Consent for Planned Operative Procedure(s) Verified: Yes Verified Documents: Surgical Consent and History and Physical NPO Status Verified Time NPO: 08:00 (breakfast sandwhich) Additional verifications Anesthesia Reactions: No Hx Blood Transfusions: No Blood Transfusion Reaction: No Airway Assessment Mallampati Score:: Class II C-Spine Mobility Assessed: Yes TMJ Mobility Assessed: Yes Dentition: Good Dentition Neurological Assessment Level of Consciousness: Awake, Alert and Appropriate Anesthesia Plan Anesthesia Risk discussed: Yes Anesthesia Plan: Verified ASA Class: II (E) Anesthesia Type: General
--- NOTE | 2025-03-24 11:52 | P.HP_ITS ---
History of Present Illness *Admission Date: 03/24/25 *Reason for visit:: Incomplete miscarriage, heavy bleeding *History of present illness: Mrs Shanda Solares is a 35 yo . On 03/03/25 she had a new OB appt with Dr. Sandoval. She was supposed to be 7w6d by LMP. On transvaginal ultrasound on 03/03 cardiac activity was not detected and growth was noted to be measuring 6 weeks and 2 days gestation. She had a formal ultrasound at [facility] that confirmed office findings. Repeat ultrasound 03/10 demonstrated nonviable fetus measuring 6w0d, no cardiac activity. She elected to proceed with medical management with Cytotec. She had multiple doses of Cytotec. She started bleeding and having dis comfort about 10 days ago and then yesterday began having more cramping and pain. Last night she experienced a large gush that soaked her pad in seconds. After about 30 minutes the bleeding tapered off. She reports this morning pain increased around 0745. She ate breakfast with her son before taking him to school. Then she passed a very large clot and a large amount of blood. She continues to bleed and have severe contraction pain. She came to the ED to be evaluated. Pelvic ultrasound this morning demonstrated no evidence of intrauterine gestational sac. Dilated cervix with blood products noted. Thickened endometrium measuring 2.3 cm with an increased vascularity may represent retained products of conception. These findings may represent ongoing . Hgb 11.0 at 0937 this morning (13.8 on 12/31/24). [facility] Disclaimer: The information contained in this section may have been updated after the patient was seen, as this information can be updated by other users. Medical History (Updated 03/24/25 @ 12:42 by Vanessa Gonsalez DO) Incomplete miscarriage Hx LEEP (loop electrosurgical excision procedure), cervix, Generalized anxiety disorder Attention deficit disorder (ADD) in adult Surgical History History of reversal of tubal ligation Family History Other No significant family history Social History Smoking Status: Never smoker alcohol intake: current alcohol intake frequency: holidays/special occasions only substance use type: denies use current occupational status: employed and unemployed Travel in the last 8 weeks?: None household members: spouse and children housing: house number of children: 1 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 Have you lived/traveled outside US in past 30 days?: No Contact w/someone who lives/traveled outside US past 30 days?: No Exposure to someone with infectious disease in past 14 days?: No Do you have a fever (greater than 100.4 F or 38 C)?: No Have you tested positive for COVID-19?: No Exposed to someone with COVID-19 in past 14 days?: No Do you have a sore throat?: No Do you have a cough?: No Do you have any weakness?: No Do you have any diarrhea?: No Are you experiencing any unusual bleeding?: No Do you have any muscle aches/pain?: No Do you have any abdominal pain?: No Are you experiencing loss of taste or smell?: No Other Medical History Have you received the Pneumonia Vaccine: No Review of Systems Review of Systems Review of systems:: pertinent systems reviewed and negative unless documented below *Genitourinary Genitourinary: Reports abnormal vaginal bleeding and Reports pelvic pain Meds Home Medications and Allergies Home Medications ?Medication ?Instructions ?Recorded ?Confirmed ?Type vits no.126-ferrous fum 1 tab PO DAILY #30 ta bs 02/06/25 03/03/25 Rx 28 mg iron-folic acid 800 mcg tablet (Classic ) azithromycin 250 mg tablet 250 mg PO DAILY 03/03/25 History ibuprofen 800 mg tablet 800 mg PO Q8H 7 days #21 tab s 03/10/25 Rx hydrocodone 5 mg-acetaminophen 325 1 tab PO Q4-6H PRN pain #20 tabs 03/14/25 Rx mg tablet misoprostol 200 mcg tablet 800 mcg (4 x 200 mcg) vagin al Q4H 03/14/25 Rx (Cytotec) PRN spontaneous miscarriage #8 tabs New Prescriptions to Start Prescriptions: Allergies Allergy/AdvReac Type Severity Reaction Status Date / Time No Known Allergies Allergy Verified 03/03/25 08:32 Exam Data for Last 24 hours Vital signs and Labs for Last 24 Hours: Temp Pulse Resp BP Pulse Ox O2 Del Method 98.1 F 101 H 20 131/79 98 Room Air 03/24/25 11:33 03/24/25 11:33 03/24/25 11:33 03/24/25 11:33 03/24/25 11:24 03/24/25 11:33 Laboratory Results - last 24 hr 03/24/25 09:37: WBC 6.4, RBC 3.53 L, Hgb 11.0 L, Hct 32.4 L, MCV 91.8, MCH 31.2, MCHC 34.0, RDW 12.6, Plt Count 177, MPV 9.9, Neut % (Auto) 70.9, Lymph % (Auto) 18.7, Sevier % (Auto) 7.7, Eos % (Auto) 1.9, Baso % (Auto) 0.3, Neut # (Auto) 4.5, Lymph # (Auto) 1.2, Sevier # (Auto) 0.5, Eos # (Auto) 0.1, Baso # (Auto) 0.0, PT 10.6, INR 0.95, APTT 24.8, Sodium 137, Potassium 3.6, Chloride 106, Carbon Dioxide 26, Anion Gap 8.6, BUN 10, Creatinine 0.60, Estimated Creat Clear 191, Estimated GFR 115, Est GFR ( Amer) 139, Glucose 106 H, Calcium 8.9, Total Bilirubin 0.2, AST 27, ALT 17, Alkaline Phosphatase 55, Total Protein 6.6, Albumin 3.9, Globulin 2.7, Albumin/Globulin Ratio 1.4, HCG, Quant [id number] H 03/24/25 09:59: Blood Type B Positive, Antibody Screen Negative 03/24/25 11:02: WBC 7.9, RBC 3.43 L, Hgb 10.5 L, Hct 31.1 L, MCV 90.7, MCH 30.6, MCHC 33.8, RDW 12.5, Plt Count 175, MPV 10.0, Neut % (Auto) 78.4, Lymph % (Auto) 12.9, Sevier % (Auto) 7.0, Eos % (Auto) 1.1, Baso % (Auto) 0.3, Neut # (Auto) 6.2, Lymph # (Auto) 1.0, Sevier # (Auto) 0.6, Eos # (Auto) 0.1, Baso # (Auto) 0.0 I & O for Last 24 hours: Intake & Output 03/21/25 03/22/25 03/23/25 03/24/25 23:59 23:59 23:59 23:59 Weight 200 lb Constitutional Constitutional: mild distress and cooperative *Routine HEENT Exam Head: Present normocephalic and atraumatic Eye: Absent conjunctivae pink ENT: Present mucous membranes moist *Routine Neck Exam Neck: Present full ROM *Routine Respiratory Exam Respiratory: Present CTA bilaterally and normal respiratory effort *Routine Cardiovascular Exam Cardiovascular: Present RRR *Routine Abdominal Exam Abdominal: Present soft; Absent tenderness or distended *Routine Rectal Exam Rectal:: deferred *Routine Genitalia Exam Genitalia:: normal female *Routine Extremities Exam Extremities: Present full ROM; Absent edema or calf tenderness *Routine Neurological Exam Neurological: Present alert, moving all extremities and normal speech Routine Psychiatric Exam Psychiatric: Present normal affect and cooperative Assessment and Plan *Assessment and plan (1) Incomplete miscarriage: Status: Acute Category: Medical Code(s): O03.4 - Incomplete spontaneous without complication (2) Retained products of conception: Status: Acute Category: Medical Plan Discussed ultrasound results and suction D&C. Discussed risks, benefits, alternatives, expectations and possible complications of D&C. All questions addressed and answered. She voiced understanding of risks and possible complications. Consent form signed Doxycycline 200 mg PO preoperatively ABO RH: B positive To OR for D&C with Michelle Suction
--- NOTE | 2025-03-24 12:39 | EXP.ANES.I ---
[facility] Anesthesia Record Part I Anesthesia Record I Intake, IV Amount: 800 Hydration: Adequate Estimated blood loss (mL): 300 Urine output (mL): 0 Blood Products used (#): none Blood Pressure: 128/60 SaO2: 97 Pulse Rate: 94 Airway Patency: Patent Respiratory Rate: 18 Temperature: 98 F Patient is:: Awake and Stable Stable to PACU at:: 12:46
--- NOTE | 2025-03-24 12:44 | P.OP_ITS ---
Date of procedure: 03/24/25 Pre-op Diagnosis:: 1. Incomplete SAB 2. Retained products of conception Post-op Diagnosis:: 1. Incomplete SAB 2. Retained products of conception 3. ABO RH: B positive Procedure performed:: Dilation and curettage with [place] Suction Surgeon:: Vanessa Gonsalez DO Granular Operator(s):: N/a TECHNICAL SERVICE REPRESENTATIVE:: Kenai Palmer Anesthesia: GETA Estimated blood loss (mL): 300 Clinical Note:: Mrs Shanda Solares is a 35 yo . On 03/03/25 she had a new OB appt with Dr. Sandoval. She was supposed to be 7w6d by LMP. On transvaginal ultrasound on 03/03 cardiac activity was not detected and growth was noted to be measuring 6 weeks and 2 days gestation. She had a formal ultrasound at [facility] that confirmed office findings. Repeat ultrasound 03/10 demonstrated nonviable fetus measuring 6w0d, no cardiac activity. She elected to proceed with medical management with Cytotec. She had multiple doses of Cytotec. She started bleeding and having discomfort about 10 days ago and then yesterday began having more cramping and pain. Last night she experienced a large gush that soaked her pad in seconds. After about 30 minutes the bleeding tapered off. She reports this morning pain increased around 0745. She ate breakfast with her son before taking him to school. Then she passed a very large clot and a large amount of blood. She continues to bleed and have severe contraction pain. She came to the ED to be evaluated. Pelvic ultrasound this morning demonstrated no evidence of intrauterine gestational sac. Dilated cervix with blood products noted. Thickened endometrium measuring 2.3 cm with an increased vascularity may represent retained products of conception. These findings may represent ongoing . Hgb 11.0 at 0937 this morning (13.8 on 12/31/24). Operative findings:: 1. On bimanual exam, uterus approximately 8 week size, midposition. No adnexal masses. Cervix dilated with blood clots protruding from external os Operative note:: Risks, benefits and alternatives were discussed with the patient. Risks include but are not limited to bleeding, infection, uterine perforation and VTE. Patient voiced understanding and agreed to proceed. She was given Doxcycline 200 mg PO preoperatively. She was wheeled back to the operating room and placed under general anesthesia without difficulty. She was placed in dorsal lithotomy position and prepped and draped in the normal sterile fashion. A bimanual exam was performed. A weighted Auvard was placed in the vaginal vault. Ringed forcep was placed on anterior lip of the cervix. Uterus sounded to 12. Cervix was adequately dilated and needed no further dilation. A 9 mm curved armenian suction curettage was advanced into the uterine cavity without difficulty and was used to suction contents of the uterus. Following removal of the products of conception, a medium sized sharp curette was advanced into the uterine cavity and was used to scrape the uterine corado until a gritty texture was noted. At this time, the suction curette was advanced one more time to suction any remaining products of conception and blood. Instruments were removed from the vagina. Straight catheter was used to drain the bladder. She was given Pitocin 20 units and TXA 1 gram IV. Patient was awaken from anesthesia without difficulty. Products of conception will be sent to pathology. She was transported to recovery room in stable condition. Patient will be discharged home when awake and ambulating. She was given instructions to follow-up in the office in 1 week. Condition: stable Disposition: same day Specimens:: 1. Products of conception Complications:: None
--- NOTE | 2025-03-25 08:23 | P.PNANES_ITS ---
[facility] Anesthesia Record Part II Anesthesia Record Part II Discharge Time: 13:06 Destination: Surgical Day Care (OP Surgery) PACU nurse assessment reviewed?: Yes Patient Condition:: Good Anesthesia Complications:: None Swallowing reflex intact?: Yes Airway Patency: Patent Cyanosis?: No Blood Pressure: 118/71 SaO2: 98 Respiratory Rate: 18 Pulse Rate: 84 Temperature: 98 F Mental Status: Alert & Oriented Pain level:: 0 Nausea and/or vomitting:: None Intake, IV Amount: 0 Hydration: Adequate
[2025-03-25 08:24] VITALS: BP 118/71; PULSE 84; RESP 18; TEMP 36.6; O2SAT 98
== END 2025-03-24 14:40 | disposition home or self-care (01) ==
LOC: ER 11:24 → OR 11:44
PROVIDERS: Emergency Provider Student in an Organized Health Care Education/Training Program; PCP Family Medicine; Visit Provider Obstetrics & Gynecology
PROC: (CPT 59812; principal; 2025-03-24 11:45)
DX: O03.4 Incomplete spontaneous abortion without complication (principal); Z67.20 Type B blood, Rh positive; F41.1 Generalized anxiety disorder
CPT/HCPCS: 59812; 36415; 76830; 80053; 84702; 85025; 85610; 85730; 86850; 99285; J0330; J1100; J1200; J1885; J2003; J2250; J2270; J2405; J2590; J2704; J3010; J7120

== ENCOUNTER 2025-04-17 14:41 | Outpatient (CLI) | payer OTHER, SELFPAY ==
--- OUTSIDE RECORDS SUMMARY | 2016-02-01 12:33 | XMS_ITS | Encounter Summary ---
[facility] Address [address] [place] [id number] Care Team Providers Care Ibm Bpm Architect Name Role Phone Provider, No Known Primary Care Provider [phone] Encounter Details Date Type Department Care Team (Latest Contact Info) Description 02/01/2016 12:33 PM EDT Hospital En[facility] [phone] Encounter for supervision of normal first in [...] EDT PAT NAME: SHANDA GARNICA MED REC#: [id number] DA: [id number] PAT GEND: F PAT TYPE: O EXAM IRINA: [id number] REF PHYS YESICA BARNARD Indication ======== anatomy [...] 61% EFW 338 g Calculated by: Hadlock (POG-AU-CC-FL) EFW (lb) 0 lb EFW (oz) 12 [...] subsequent visit to complete the anatomic screening. It Support Consultant: Fern Gallegos RDMN Physician: Eliezer Morris MD Electronically signed by: Eliezer Morris MD at: 14:42 Procedure Note Eliezer Morris MD - 02/01/2016 PAT NAME: SHANDA GARNICA MED REC#: [id number] DA: 1990 PAT GEND: F PAT TYPE: O EXAM IRINA: [id number] REF PHYS YESICA BARNARD Indication ======== anatomy [...] Cerebellum tr21.3 mm66% 20w 2d CM5.4 mm61% TBY232 g Calculated by:Princess (NLG-CO-JW-FL) EFW (lb)0 lb EFW (oz)12 oz Cephalic index0.701% HC / AC1.2180% FL / BPD0.7151% FL / AC0.2249% WCB855 bpm Anatomy Cranium:Cranial vault appears intact with [...] a subsequent visit tocomplete the anatomic screening. It Support Consultant: Fern Gallegos RDMS Physician: Eliezer Morris MD Electronically signed by: Eliezer Morris MD at: 14:42 us Yesica Barnard MD [facility] [place] ORDERABLES Final Result documented in this encounter Visit Diagnoses Diagnosis Encounter for supervision of normal first in second trimester documented in this encounter Care Teams Ibm Bpm Architect Relationship Specialty Start Date End Date Provider, [place] [address] PCP - General 12/29/15 documented as of this encounter
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
--- OUTSIDE RECORDS SUMMARY | 2025-02-27 11:30 | XMS_ITS ---
Author Organization [facility] Address [address] [place] [phone] Care Team Providers Care Hand Bindery Assembly Worker Name Role Phone Vamshi Cook Primary Care Provider Norma Olivares [phone] REASON FOR VISIT Cough, Sputum Production, 7 Weeks Encounters Encounter Location Date Provider Diagnosis [facility] [address] [place] [id number] 02/27/2025 Norma Olivares Plan Of Treatment No Information Progress Notes * DENI GARNICA MDOB:[birth year] (35 yo F)Acc No.mDOS:02/27/2025 Progress Notes Patient: DENI BASSETT Account Number:m Provider: CK Wellington :1990 A ge:35 Y S ex:Female Date:02/27/2025 Address:[address] [place], [place] [phone] Pcp:Vamshi Cook Subjective: * Chief Complaints: * 1 . Cough, Sputum Production, 7 Weeks . * Medical History: Objective: * Vitals: Assessment: Plan: * Treatment: * Images: Billing Information: * Visit Code: * Procedure Codes: * Electronic signature of KC Peterson on 04/17/2025 at 02:45 PM EDT Sign off status: Pending * Provider: CK Wellington Date: 0 02/27/2025 Generated for Printi ng/Faxing/eTransmitting on: 0 04/17/2025 02:45 PM EDT
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
--- OUTSIDE RECORDS SUMMARY | 2025-04-17 14:45 | XMS_ITS | Encounter Summary ---
[facility] Address [address] [place] [id number] Care Team Providers Care Food Processing Chemist Name Role Phone Provider, No Known Primary Care Provider [phone] Encounter Details Date Type Department Care Team (Late st Contact Info) Description 02/23/2016 Telephone [facility] OBGYN [address] [facility] [address] [place] [address] Jesus Carlson MD [address] [facility] [address] [place] [address] Social History Tobacco Use Types Packs/Day Years [...] on filedocumented in this encounter Care Teams Food Processing Chemist Relationship Specialty Start Date End Date Provider, No Known [place] [id number] PCP - General 12/29/15 documented as of this encounter
--- OUTSIDE RECORDS SUMMARY | 2025-04-17 14:45 | XMS_ITS | Encounter Summary ---
[facility] Address [address] [place] [address] Care Team Providers Care Medication Nurse Name Role Phone Provider, No Known Primary Care Provider [phone] Encounter Details Date Type Department Care Team (Late st Contact Info) Description 02/21/2016 Telephone [facility] OBGYN [address] [facility] [address] [place] [address] Jesus Carlson MD [address] [facility] [address] [place] [address] Social History Tobacco Use Types Packs/Day Years [...] on filedocumented in this encounter Care Teams Medication Nurse Relationship Specialty Start Date End Date Provider, No Known [place], [place] [id number] PCP - General 12/29/15 documented as of this encounter
--- OUTSIDE RECORDS SUMMARY | 2025-04-17 14:45 | XMS_ITS | Clinical Summary ---
Author Organization [facility] Address [address] [place] [id number] Care Team Providers Care Petroleum Products District Supervisor Name Role Phone Provider, No Known Primary Care Provider [phone] Allergies No known active allergies Medications sertraline [...] 1990 TDAP/TD VACCINES (1 - Tdap) 02/06/2011 INFLUENZA VACCINE 02/20/2025 Pneumococcal Vaccine 0-49 Aged Out No longer eligible based on patient's age to complete this topic Insurance [facility] P[facility] Advance Directives * Full Code (Latest Code Status on File) Date Activated Date Inactivated Comments 02/25/2016 12:03 PM 02/26/2016 4:01 PM Care Teams Petroleum Products District Supervisor Relationship Specialty Start Date End Date Provider, [place] [address] PCP - General 12/29/15
--- OUTSIDE RECORDS SUMMARY | 2025-04-17 14:45 | XMS_ITS | Clinical Summary ---
Author Organization [facility] Address [address] [place] [address] Care Team Providers Care Helicopter Dispatcher Name Role Phone Pcp, No Primary Care [...] Cancer Screening 02/06/2022 [facility]-HPV/Cotest 02/06/2022 07/10/2016, 07/10/2016 [id number] Vaccine ( - season) 2025 [facility]-Influenza Vaccine (#1) 2025 04/03/2022 UKY-DTaP,Tdap,and Td [...] Narrative SUNQUEST - 07/26/2016 9:59 AM EST [facility] MR #: [id number] [facility] [address] [place], [place] [address] 1990 (Age: 26) FW Collect Date: 07/10/2016 00:00 Receipt Date: 07/11/2016 09:48 Page 1 DEPARTMENT OF PATHOLOGY AND LABORATORY MEDICINE CYTOPATHOLOGY REPORT Email: [email or web address] [id number] ATTENDING MD/Practitioner: Kimberley Caldera MD Service: OBE Location: [facility] Reported: 07/26/2016 09:59 Collected: 07/10/2016 00:00 INTERPRETATION A. THIN PREP (CERVICAL/VAGINAL): NEGATIVE FOR INTRAEPITHELIAL LESION OR MALIGNANCY. SATISFACTORY FOR EVALUATION; ENDOCERVICAL/ TRANSFORMATION ZONE COMPONENT PRESENT. Slide scanned and imaged by [employer] ThinPrep Imaging System with manual review of all selected valleicllo. Please correlate with HPV results (see microbiology report, or call [phone]). Please see ([email or web address]) for suggested follow up. [...] results is suggested (please call Microbiology at [phone] for results). CLINICAL INFORMATION: Menstrual History: : First Trimester Date of Last Menstrual Period: 04/23/2016 Other Clinical Conditions: Abnormal pap results elsewhere: h/o abnormal pap smears, had colpo, LEEP with normal repeat paps Date not provided Clinical information indicates patient has high risk factor(s). HPV testing requested. SPECIMEN DESCRIPTION: A: THIN PREP (CERVICAL/VAGINAL) THIN PREP PROCESS CELLULAR ENHANCEMENT ICD: F: A; DX IMAGE [id number] SNOMED CODES: A; [id number] In cases where a pathologist has signed [...] Most Recently Relevant to Health Maintenance [place] [address] [place] [address] [employer] Care Teams Helicopter Dispatcher Relationship Specialty Start Date End Date Pcp, No [address] [place] [address] PCP - General Family Medicine 06/07/22
--- OUTSIDE RECORDS SUMMARY | 2025-04-17 14:46 | XMS_ITS | Clinical Summary ---
Author Organization [facility] Address [address] [facility], [address] [place] [address] Care Team Providers Care Ice Cream Machine Operator Name Role Phone System, Referring Not [...] of Treatment Not on file Care Teams Ice Cream Machine Operator Relationship Specialty Start Date End Date System, Referring Not In PCP - General 03/05/16
[2025-04-17 16:06] LABS: Thyroid Stimulating Hormone 0.44 uIU/mL (0.465-4.68)
[2025-04-17 16:13] LABS: Hemoglobin A1C 4.9 % (4.0-6.0)
== END 2025-04-17 23:59 | disposition home or self-care (01) ==
LOC: LAB 14:42
PROVIDERS: PCP Family Medicine; Visit Provider Obstetrics & Gynecology
DX: O03.4 Incomplete spontaneous abortion without complication (principal); N96 Recurrent pregnancy loss
CPT/HCPCS: 83036; 84443

== ENCOUNTER 2025-04-21 12:11 | Outpatient (CLI) | payer OTHER, SELFPAY ==
--- OUTSIDE RECORDS SUMMARY | 2016-02-01 12:33 | XMS_ITS | Encounter Summary ---
[facility] Address [address] [place] [address] Care Team Providers Care Forest Fire Equipment Operator Name Role Phone Provider, No Known Primary Care Provider [phone] Encounter Details Date Type Department Care Team (Latest Contact Info) Description 02/01/2016 12:33 PM EDT Hospital Encounter [facility] [phone] Encounter for supervision of normal first in [...] EDT PAT NAME: SHANDA GARNICA MED REC#: [id number] DA: [id number] PAT GEND: F PAT TYPE: O EXAM IRINA: [id number] REF PHYS YESICA BARNARD Indication ======== anatomy [...] 61% EFW 338 g Calculated by: Hadlock (DUE-UV-DJ-FL) EFW (lb) 0 lb EFW (oz) 12 [...] subsequent visit to complete the anatomic screening. Drafter Detail: Fern Gallegos RDND Physician: Eliezer Morris MD Electronically signed by: Eliezer Morris MD at: 14:42 Procedure Note Eliezer Morris MD - 02/01/2016 PAT NAME: SHANDA GARNICA MED REC#: [id number] DA: 1990 PAT GEND: F PAT TYPE: O EXAM IRINA: [id number] REF PHYS YESICA BARNARD Indication ======== anatomy [...] Cerebellum tr21.3 mm66% 20w 2d CM5.4 mm61% [id number] g Calculated by:Princess (XNO-GF-AR-FL) EFW (lb)0 lb EFW (oz)12 oz Cephalic index0.701% HC / AC1.2180% FL / BPD0.7151% FL / AC0.2249% WRT911 bpm Anatomy Cranium:Cranial vault appears intact with [...] a subsequent visit tocomplete the anatomic screening. Drafter Detail: Fern Gallegos RDMS Physician: Eliezer Morris MD Electronically signed by: Eliezer Morris MD at: 14:42 us Yesica Barnard MD [facility] [place] ORDERABLES Final Result documented in this encounter Visit Diagnoses Diagnosis Encounter for supervision of normal first in second trimester documented in this encounter Care Teams Forest Fire Equipment Operator Relationship Specialty Start Date End Date Provider, [place] [address] PCP - General 12/29/15 documented as of this encounter
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
--- OUTSIDE RECORDS SUMMARY | 2025-02-27 11:30 | XMS_ITS ---
Author Organization [facility] Address [address] [place] [phone] Care Team Providers Care Peanut Salter Name Role Phone Vamshi Cook Primary Care Provider Norma Olivares [phone] REASON FOR VISIT Cough, Sputum Production, 7 Weeks Encounters Encounter Location Date Provider Diagnosis [facility] [address] [place] [phone] 02/27/2025 Norma Olivares Plan Of Treatment No Information Progress Notes * DENI GARNICA MDOB:[birth year] (35 yo F)Acc No.mDOS:02/27/2025 Progress Notes Patient: DENI BASSETT Account Number:m Provider: CK Wellington :1990 A ge:35 Y S ex:Female Date:02/27/2025 Address:[address] [place], [place] [id number] Pcp:Vamshi Cook Subjective: * Chief Complaints: * 1 . Cough, Sputum Production, 7 Weeks . * Medical History: Objective: * Vitals: Assessment: Plan: * Treatment: * Images: Billing Information: * Visit Code: * Procedure Codes: * Electronic signature of CK Peterson on 04/21/2025 at 12:13 PM EDT Sign off status: Pending * Provider: CK Wellington Date: 0 02/27/2025 Generated for Printi ng/Faxing/eTransmitting on: 0 04/21/2025 12:13 PM EDT
--- OUTSIDE RECORDS SUMMARY | 2025-03-02 06:15 | XMS_ITS ---
Author Organization [facility] [facility] [address] [place] [address] Care Team Providers Care Housekeeper/Custodian/Laundry Worker Name Role Phone Vamshi Cook Primary Care Provider [phone] Neela Lukeine Unavailable [phone] Allergies No Known Allergies Results Component Value [...] [address] [place] [id number] 03/02/2025 Angelina Luke Acute upper respiratory infection [...] A ge:35 Y S ex:Female Date:03/02/2025 Address:[address] [place] [address], [place], [id number] Pcp:Vamshi Cook Subjective: * Chief Complaints: * [...] Ny Armstrong 2014, 01/29/2017, Tubes Tied - [facility] 01/29/2017. * Hospitalization/Major Diagno stic Procedure: I [...] Procedure Codes: 3 6416 CAPILLARY BLOOD DRAW, 52442 CBC WITH AUTO DIFF * Follow Up: p rn * Images: Billing Information: * Visit Code: 09148 Office Visit, Est Pt., Level 3. * Procedure Codes: 16349 CAPILLARY BLOOD DRAW. 76642 CBC WITH AUTO DIFF. * Electronic signature of Rita Luke APRN on 04/21/2025 at 12:14 PM EDT Sign off status: Pending * Provider: REBA Eller Date: 0 03/02/2025 Generated for Malu mcdaniel/Rashmi/eTroyalsmnick on: 0 04/21/2025 12:14 PM EDT History and Physical Notes * [...]
--- OUTSIDE RECORDS SUMMARY | 2025-04-21 12:13 | XMS_ITS | Encounter Summary ---
[facility] Address [address] [place] [address] Care Team Providers Care Radio Time Salesperson Name Role Phone Provider, No Known Primary Care Provider [phone] Encounter Details Date Type Department Care Team (Late st Contact Info) Description 02/21/2016 Telephone [facility] OBGYN [address] [facility] [address] [place] [address] Jesus Carlson MD [address] [facility] [address] [place] [address] Social History Tobacco Use Types Packs/Day Years [...] on filedocumented in this encounter Care Teams Radio Time Salesperson Relationship Specialty Start Date End Date Provider, No Known [place], [place] [id number] PCP - General 12/29/15 documented as of this encounter
--- OUTSIDE RECORDS SUMMARY | 2025-04-21 12:13 | XMS_ITS | Clinical Summary ---
Author Organization [facility] Address [address] [place] [address] Care Team Providers Care Sawyer Cork Slabs Name Role Phone Pcp, No Primary Care [...] Cancer Screening 02/06/2022 [facility]-HPV/Cotest 02/06/2022 07/10/2016, 07/10/2016 [id number] Vaccine ( - season) 2025 UKY-Influenza Vaccine [...] - 07/26/2016 9:59 AM EST [facility] MR #: [id number] [facility] [address] [place], [place] [address] 1990 (Age: 26) FW Collect Date: 07/10/2016 00:00 Receipt Date: 07/11/2016 09:48 Page 1 DEPARTMENT OF PATHOLOGY AND LABORATORY MEDICINE CYTOPATHOLOGY REPORT Email: [email or web address] [id number] ATTENDING MD/Practitioner: Kimberley Caldera MD Service: OBE Location: [facility] Reported: 07/26/2016 09:59 Collected: 07/10/2016 00:00 INTERPRETATION A. THIN PREP (CERVICAL/VAGINAL): NEGATIVE FOR INTRAEPITHELIAL LESION OR MALIGNANCY. SATISFACTORY FOR EVALUATION; ENDOCERVICAL/ TRANSFORMATION ZONE COMPONENT PRESENT. Slide scanned and imaged by [employer] ThinPrep Imaging System with manual review of all selected vallecillo. Please correlate with HPV results (see microbiology report, or call [phone]). Please see ([email or web address]) for suggested follow up. [...] results is suggested (please call Microbiology at [phone] for results). CLINICAL INFORMATION: Menstrual History: : First Trimester Date of Last Menstrual Period: 04/23/2016 Other Clinical Conditions: Abnormal pap results elsewhere: h/o abnormal pap smears, had colpo, LEEP with normal repeat paps Date not provided Clinical information indicates patient has high risk factor(s). HPV testing requested. SPECIMEN DESCRIPTION: A: THIN PREP (CERVICAL/VAGINAL) THIN PREP PROCESS CELLULAR ENHANCEMENT ICD: F: A; DX IMAGE [id number] SNOMED CODES: A; N3H104 [id number] [id number] In cases where a pathologist has signed [...] Most Recently Relevant to Health Maintenance [place] [address] [place] [address] Care Teams Sawyer Cork Slabs Relationship Specialty Start Date End Date Pcp, No [address] [place] [address] PCP - General Family Medicine 06/07/22
--- OUTSIDE RECORDS SUMMARY | 2025-04-21 12:13 | XMS_ITS | Clinical Summary ---
Author Organization [facility] Address [address] [place] [id number] Care Team Providers Care Nursing Executive Name Role Phone Provider, No Known Primary Care Provider [phone] Allergies No known active allergies Medications sertraline [...] patient's age to complete this topic Insurance [facility] PPO Advance Directives * Full Code (Latest Code Status on File) Date Activated Date Inactivated Comments 02/25/2016 12:03 PM 02/26/2016 4:01 PM Care Teams Nursing Executive Relationship Specialty Start Date End Date Provider, [place] [address] PCP - General 12/29/15
--- OUTSIDE RECORDS SUMMARY | 2025-04-21 12:13 | XMS_ITS | Encounter Summary ---
[facility] Address [address] [place] [address] Care Team Providers Care Radiophone Operator Name Role Phone Provider, No Known Primary Care Provider [phone] Encounter Details Date Type Department Care Team (Late st Contact Info) Description 02/23/2016 Telephone [facility] OBGYN [address] [facility] [address] [place] [address] Jesus Carlson MD [address] [facility] [address] [place] [address] Social History Tobacco Use Types Packs/Day Years [...] on filedocumented in this encounter Care Teams Radiophone Operator Relationship Specialty Start Date End Date Provider, No Known [place] [id number] PCP - General 12/29/15 documented as of this encounter
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
--- OUTSIDE RECORDS SUMMARY | 2025-04-21 12:15 | XMS_ITS | Clinical Summary ---
Author Organization [facility] Address [address] [facility], [address] [place] [address] Care Team Providers Care Assistant Coach Name Role Phone System, Referring Not In [...] of Treatment Not on file Care Teams Assistant Coach Relationship Specialty Start Date End Date System, Referring Not In PCP - General 03/05/16
[2025-04-21 16:25] LABS: Hematocrit 35.1 % (37.0-47.0); Hemoglobin 10.9 g/dL (12.2-16.2); Immature Granulocytes % 0.2 %; Mean Corpuscular HGB Conc 31.1 g/dL (31.8-35.4); Mean Corpuscular Hemoglobin 27.2 pg (27.0-31.2); Mean Corpuscular Volume 87.5 fl (81-99); Nucleated Red Blood Cells % 0 %; Platelet Count 208 K/mm3 (142-424); Red Blood Count 4.01 M/mm3 (4.20-5.40); Red Cell Distribution Width-SD 41.1 fL; White Blood Count 4.7 K/mm3 (4.8-10.8)
[2025-04-21 17:42] LABS: Iron 43 ug/dL (37-170)
[2025-04-21 17:43] LABS: Free T4 (Free Thyroxine) 1.18 ng/dl (0.78-2.19)
== END 2025-04-21 23:59 | disposition home or self-care (01) ==
PROVIDERS: PCP Family Medicine; Visit Provider Obstetrics & Gynecology
DX: E66.9 Obesity, unspecified (principal); R53.83 Other fatigue
CPT/HCPCS: 36415; 83540; 84439; 84480; 85025

== ENCOUNTER 2025-05-13 15:02 | Outpatient (CLI) | payer OTHER, SELFPAY ==
--- OUTSIDE RECORDS SUMMARY | 2016-02-01 12:33 | XMS_ITS | Encounter Summary ---
[facility] Address [address] [place] [address] Care Team Providers Care Ict Help Desk Technician Name Role Phone Provider, No Known Primary Care Provider [phone] Encounter Details Date Type Department Care Team (Latest Contact Info) Description 02/01/2016 12:33 PM EDT Hospital Encounter [facility] [address] [facility] [address] [place] [address] Encounter for supervision of normal first in [...] EDT PAT NAME: SHANDA GARNICA MED REC#: [id number] DA: [id number] PAT GEND: F PAT TYPE: O EXAM IRINA: [id number] REF PHYS AKIL, YESICA Indication ======== anatomy survey. History ====== General [...] 61% EFW 338 g Calculated by: Hadlock (EWR-BK-OQ-FL) EFW (lb) 0 lb EFW (oz) 12 [...] subsequent visit to complete the anatomic screening. Bushwalking Guide: Fern Gallegos RDOR Physician: Eliezer Morris MD Electronically signed by: Eliezer Morris MD at: 14:42 Procedure Note Eliezer Morris MD - 02/01/2016 PAT NAME: SHANDA GARNICA MED REC#: [id number] DA: 1990 PAT GEND: F PAT TYPE: O EXAM IRINA: [id number] REF PHYS YESICA BARNARD Indication ======== anatomy [...] Cerebellum tr21.3 mm66% 20w 2d CM5.4 mm61% UYI145 g Calculated by:Hadlock (FSM-GN-BM-FL) EFW (lb)0 lb EFW (oz)12 oz Cephalic index0.701% HC / AC1.2180% FL / BPD0.7151% FL / AC0.2249% EAX599 bpm Anatomy Cranium:Cranial vault appears intact with [...] a subsequent visit tocomplete the anatomic screening. Bushwalking Guide: Fern Gallegos RDMS Physician: Eliezer Morris MD Electronically signed by: Eliezer Morris MD at: 14:42 us Yesica Barnard MD [facility] US ORDERABLES Final Result documented in this encounter Visit Diagnoses Diagnosis Encounter for supervision of normal first in second trimester documented in this encounter Care Teams Ict Help Desk Technician Relationship Specialty Start Date End Date Provider, [place] [address] PCP - General 12/29/15 documented as of this encounter
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
--- OUTSIDE RECORDS SUMMARY | 2025-02-27 11:30 | XMS_ITS ---
Author Organization [facility] Address [address] [place] [phone] Care Team Providers Care Camera Supervisor Name Role Phone Vamshi Cook Primary Care Provider Norma Olivares [phone] REASON FOR VISIT Cough, Sputum Production, 7 Weeks Encounters Encounter Location Date Provider Diagnosis [facility] [address] [place] [id number] 02/27/2025 Norma Olivares Plan Of Treatment No Information Progress Notes * DENI GARNICA MDOB:[birth year] (35 yo F)Acc No.mDOS:02/27/2025 Progress Notes Patient: DENI BASSETT Account Number:m Provider: CK Wellington :1990 A ge:35 Y S ex:Female Date:02/27/2025 Address:[address] [place], [place] [id number] Pcp:Vamshi Cook Subjective: * Chief Complaints: * 1 . Cough, Sputum Production, 7 Weeks . * Medical History: Objective: * Vitals: Assessment: Plan: * Treatment: * Images: Billing Information: * Visit Code: * Procedure Codes: * Electronic signature of CK Peterson on 05/13/2025 at 03:29 PM EDT Sign off status: Pending * Provider: CK Wellington Date: 0 02/27/2025 Generated for Printi ng/Faxing/eTransmitting on: 1 03:29 PM EDT
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
--- OUTSIDE RECORDS SUMMARY | 2025-05-13 15:29 | XMS_ITS | Clinical Summary ---
Author Organization [facility] Address [address] [place] [address] Care Team Providers Care Director State Pharmacy Name Role Phone Pcp, No Primary Care [...] Cancer Screening 02/06/2022 [facility]-HPV/Cotest 02/06/2022 07/10/2016, 07/10/2016 [id number] Vaccine ( - season) 2025 UKY-Influenza Vaccine [...] Narrative SUNQUEST - 07/26/2016 9:59 AM EST [facility] MR #: [id number] [facility] [address] [place], [place] [address] 1990 (Age: 26) FW Collect Date: 07/10/2016 00:00 Receipt Date: 07/11/2016 09:48 Page 1 DEPARTMENT OF PATHOLOGY AND LABORATORY MEDICINE CYTOPATHOLOGY REPORT Email: [email or web address] [id number] ATTENDING MD/Practitioner: Kimberley Caldera MD Service: OBE Location: [facility] Reported: 07/26/2016 09:59 Collected: 07/10/2016 00:00 INTERPRETATION A. THIN PREP (CERVICAL/VAGINAL): NEGATIVE FOR INTRAEPITHELIAL LESION OR MALIGNANCY. SATISFACTORY FOR EVALUATION; ENDOCERVICAL/ TRANSFORMATION ZONE COMPONENT PRESENT. Slide scanned and imaged by [employer] ThinPrep Imaging System with manual review of all selected vallecillo. Please correlate with HPV results (see microbiology report, or call [phone]). Please see ([email or web address]) for suggested follow up. [...] results is suggested (please call Microbiology at [phone] for results). CLINICAL INFORMATION: Menstrual History: : First Trimester Date of Last Menstrual Period: 04/23/2016 Other Clinical Conditions: Abnormal pap results elsewhere: h/o abnormal pap smears, had colpo, LEEP with normal repeat paps Date not provided Clinical information indicates patient has high risk factor(s). HPV testing requested. SPECIMEN DESCRIPTION: A: THIN PREP (CERVICAL/VAGINAL) THIN PREP PROCESS CELLULAR ENHANCEMENT ICD: F: A; DX IMAGE [id number] SNOMED CODES: A; D2F654 [id number] [id number] In cases where a pathologist has signed [...] Most Recently Relevant to Health Maintenance [place] [address] [place] [address] [employer] Care Teams Director State Pharmacy Relationship Specialty Start Date End Date Pcp, No [address] [place] [address] PCP - General Family Medicine 06/07/22
--- OUTSIDE RECORDS SUMMARY | 2025-05-13 15:29 | XMS_ITS | Encounter Summary ---
[facility] Address [address] [place] [address] Care Team Providers Care Munitions Handler Supervisor Name Role Phone Provider, No Known Primary Care Provider [phone] Encounter Details Date Type Department Care Team (Late st Contact Info) Description 02/21/2016 Telephone [facility] OBGYN [address] [facility] [address] [place] [address] Jesus Carlson MD [address] [facility] [address] [place] [address] Social History Tobacco Use Types Packs/Day Years [...] on filedocumented in this encounter Care Teams Munitions Handler Supervisor Relationship Specialty Start Date End Date Provider, No Known [place], [place] [id number] PCP - General 12/29/15 documented as of this encounter
--- OUTSIDE RECORDS SUMMARY | 2025-05-13 15:29 | XMS_ITS ---
Author Organization Unknown ENCOUNTERS Encounter Performer Location Date Diagnosis Diagnosis Status Pre Admit [place] [id number] [facility] [address] [place] [address] [phone] Emergency [address] [place] [address] [phone] A Emergency [facility] [address] [place] [address] [address] [place] [address] [id number] Pre Admit [address] [place] [address] [phone] Emergency [address] [place] [address] [phone] QUINN Pre Admit [facility] [address] [facility] [address] [place] [address] [phone] Emergency [facility] [address] [facility] [address] [place] [address] [phone] QUINN Pre Admit [facility] [address] [place] [address] [address] [place] [address] [phone] *Note: Encounters from your own facility or health system may be excluded. Allergies, Adverse Reactions, Alerts Allergen Type Severity Identification Date Medications Name Date Quantity Days Supplied GPI Number
--- OUTSIDE RECORDS SUMMARY | 2025-05-13 15:29 | XMS_ITS | Encounter Summary ---
[facility] Organization [facility] Address [address] [place] [id number] Care Team Providers Care Transit Coach Operator Name Role Phone Provider, No Known Primary Care Provider [phone] Encounter Details Date Type Department Care Team (Late st Contact Info) Description 02/23/2016 Telephone [facility]YN [address] [facility] [address] [place] [address] Jesus Carlson MD [address] [facility] [address] [place] [address] Social History Tobacco Use Types Packs/Day Years [...] on filedocumented in this encounter Care Teams Transit Coach Operator Relationship Specialty Start Date End Date Provider, No Known [place] [id number] PCP - General 12/29/15 documented as of this encounter
--- OUTSIDE RECORDS SUMMARY | 2025-05-13 15:29 | XMS_ITS | Clinical Summary ---
Author Organization [facility] Address [address] [place] [id number] Care Team Providers Care Rerolling Machine Operator Name Role Phone Provider, No Known Primary Care Provider [phone] Allergies No known active allergies Medications sertraline [...] to complete this topic Insurance [facility] PPO Advance Directives * Full Code (Latest Code Status on File) Date Activated Date Inactivated Comments 02/25/2016 12:03 PM 02/26/2016 4:01 PM Care Teams Rerolling Machine Operator Relationship Specialty Start Date End Date Provider, [place] [address] PCP - General 12/29/15
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
--- OUTSIDE RECORDS SUMMARY | 2025-05-13 15:32 | XMS_ITS | Clinical Summary ---
Author Organization [facility] Address [address] [facility], [address] [place] [address] Care Team Providers Care Annealing Operator Name Role Phone System, Referring Not [...] of Treatment Not on file Care Teams Annealing Operator Relationship Specialty Start Date End Date System, Referring Not In PCP - General 03/05/16
== END 2025-05-13 23:59 | disposition home or self-care (01) ==
LOC: LAB 15:03
PROVIDERS: PCP Family Medicine; Visit Provider Obstetrics & Gynecology
DX: N92.1 Excessive and frequent menstruation with irregular cycle (principal)
CPT/HCPCS: 36415; 84702